=== PATIENT | female | born 1975 | race Caucasian/White ===

== ENCOUNTER 2016-03-23 16:24 | Emergency (ER) | payer OTHER ==
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
--- NOTE | 2016-03-23 16:41 | ED CLINICAL REPORT ---
Clinical Report - Physicians/Mid Levels [facility] [address] [place] [address] 03/23/2016 16:27 Patient: SILVIA ESPARZA Time Seen: 17:47 Mar 23 2016. Arrived- By ambulance. Historian- patient and EMS personnel. HISTORY OF PRESENT ILLNESS Chief Complaint: DENTAL PAIN. This started just prior to arrival and is still present. Pain described as mild. (Patient reports using meth just before arrival. Reports some dental pain. He was also biting her tongue about 3 weeks previously. No fevers, no diff swallowing.). REVIEW OF SYSTEMS No cough or difficulty breathing. All systems otherwise negative, except as recorded above. SOCIAL HISTORY History of drug use: methamphetamines. No alcohol use. ADDITIONAL NOTES The nursing notes have been reviewed. PHYSICAL EXAM Vital Signs: 03/23/2016 16:34 HR: 122. RR: 18. O2 saturation: 98%. Appearance: Alert. (very jumpy/ short/ abrupt/ tangential/ disheveled). ENT: Dental decay. Ears normal. Nose normal. No pharyngeal erythema, mouth ulcerations, dental tenderness or trismus. (decay of right lower teth). Neck: Trachea midline. No adenopathy. No thyromegaly. CVS: Normal heart rate and rhythm. Heart sounds normal. Respiratory: No respiratory distress. Breath sounds normal. Skin: Normal skin color. No rash. PROGRESS AND PROCEDURES Course of Care: uvula midline. Pt having a very hard time sitting still during exam. ambulates. Lungs clear. Uvula with no shift. She is very stable. Patient is stable. Patient/family counseled. Disposition: Discharged. CLINICAL IMPRESSION Dental pain. Substance abuse problems: abuse of methamphetamine. (under influence NOW). INSTRUCTIONS Drink plenty of fluids. (swish and spit warm salt water). Prescription Medications: Amoxicillin 500 mg tablets: take 1 orally every 8 hours for 10 days. No refills. Follow-up: Follow up with your doctor in three days. (Electronically signed by Yessy Montanez P.A.-C 03/23/2016 17:51)
--- NOTE | 2016-03-23 16:41 | ED NURSING NOTES ---
Clinical Report - Nurses [facility] [address] [place] [address] 03/23/2016 16:27 Patient: SILVIA ESPARZA TRIAGE Triage time 16:34 Mar 23 2016. Acuity: LEVEL 5. Alert. --16:41 Josie Carias R.N. 16:34 03/23/16. HR: 122. RR: 18. O2 saturation: 98%. Pain level now 0/10. --16:41 Josie Carias R.N. Chief Complaint: RIGHT UPPER TOOTHACHE. --17:02 Josie Carias R.N. Weight: 52.1 kg stated. Height/Length: 67 inches Per Patient. BMI: 18. --16:34 Josie Carias R.N. Medications Abilify Oral 10mg, daily. HydrOXYzine HCl Oral 100 mg, daily. Penicillin VK. Prazosin HCl Oral 2 mg, at bedtime. --17:02 Josie Carias R.N. Ranitidine HCl Oral 150 mg, daily. Triamcinolone paste 0.1%. --17:02 Josie Carias R.N. Allergies Compazine. Gabapentin. morphine. Phenergan. Vancomycin. Vicodin. --17:02 Josie Carias R.N. History Arrived by private vehicle. Historian: patient. Primary physician (none). ( Pt took an ambulance to the ER for dental pain, states she bit her tongue 3 weeks ago and her ears hurt. Pt brought to the front the desk for check in, pt brought to triage, pt rambling, cannot focus, needs questions repeated, restless in chair, staff cannot understand pt, except to understand that she has dental pain.). Onset. (3 weeks). She has no dental appointment scheduled. Treatment ENVIRONMENTAL COMPLIANCE INSPECTOR: None. PAST MEDICAL HX: Denies current . SOCIAL HX: Former smoker (states she doesn't smoke). History of drug use: methamphetamines. No alcohol use. NUTRITIONAL RISK ASSESSMENT: The nutritional risk assessment revealed no deficiencies. FUNCTIONAL ASSESSMENT: Functional assessment: no impairments noted. LEARNING NEEDS ASSESSMENT: The learning needs assessment revealed no barriers. SKIN INTEGRITY ASSESSMENT: Skin integrity risk assessment completed. No skin integrity risk identified. --16:41 Josie Carias R.N. Interventions ID band on patient. To room. --16:41 Josie Carias R.N. PHYSICAL ASSESSMENT Ambulatory to room. GENERAL / NEURO / PSYCH: Appears anxious. She appears anxious. SKIN: Skin is warm and dry. --16:45 Josie Carias R.N. NURSING PROGRESS NOTES ( Pt seen in triage on arrival by Lennie FELIX. Pt admitted she used meth ENVIRONMENTAL COMPLIANCE INSPECTOR, was informed she needs to fill this RX for teeth and infection. Pt walked out to [facility] after discharge and assisted with the phone to call [employer].). --17:00 Josie Carias R.N. DISPOSITION / DISCHARGE Condition at departure: stable. Ability to learn limited by poor comprehension and poor cooperation; teaching performed with the patient. Reviewed medication(s). Written instructions provided in Icelandic. The patient was discharged by the physician assistant import manager. She was discharged home. She left the Emergency Department ambulatory and via ([employer].). --17:01 Josie Carias R.N. Departure time: 17:Mar 23 2016. --17:01 Josie Carias R.N. Locked/Released at 03/23/2016 17:04 by Josie Carias R.N.
--- NOTE | 2016-03-23 16:41 | ED NURSING NOTES ---
Clinical Report - Nurses [facility] [address] [place] [address] 03/23/2016 16:27 Patient: SILVIA ESPARZA TRIAGE Triage time 16:34 Mar 23 2016. Acuity: LEVEL 5. Alert. --16:41 Josie Carias R.N. 16:34 03/23/16. HR: 122. RR: 18. O2 saturation: 98%. Pain level now 0/10. --16:41 Josie Carias R.N. Chief Complaint: RIGHT UPPER TOOTHACHE. --17:02 Josie Carias R.N. Weight: 52.1 kg stated. Height/Length: 67 inches Per Patient. BMI: 18. --16:34 Josie Carias R.N. Medications Abilify Oral 10mg, daily. HydrOXYzine HCl Oral 100 mg, daily. Penicillin VK. Prazosin HCl Oral 2 mg, at bedtime. --17:02 Josie Carias R.N. Ranitidine HCl Oral 150 mg, daily. Triamcinolone paste 0.1%. --17:02 Josie Carias R.N. Allergies Compazine. Gabapentin. morphine. Phenergan. Vancomycin. Vicodin. --17:02 Josie Carias R.N. History Arrived by private vehicle. Historian: patient. Primary physician (none). ( Pt took an ambulance to the ER for dental pain, states she bit her tongue 3 weeks ago and her ears hurt. Pt brought to the front the desk for check in, pt brought to triage, pt rambling, cannot focus, needs questions repeated, restless in chair, staff cannot understand pt, except to understand that she has dental pain.). Onset. (3 weeks). She has no dental appointment scheduled. Treatment RACE RELATIONS ADVISER: None. PAST MEDICAL HX: Denies current . SOCIAL HX: Former smoker (states she doesn't smoke). History of drug use: methamphetamines. No alcohol use. NUTRITIONAL RISK ASSESSMENT: The nutritional risk assessment revealed no deficiencies. FUNCTIONAL ASSESSMENT: Functional assessment: no impairments noted. LEARNING NEEDS ASSESSMENT: The learning needs assessment revealed no barriers. SKIN INTEGRITY ASSESSMENT: Skin integrity risk assessment completed. No skin integrity risk identified. --16:41 Josie Carias R.N. Interventions ID band on patient. To room. --16:41 Josie Carias R.N. PHYSICAL ASSESSMENT Ambulatory to room. GENERAL / NEURO / PSYCH: Appears anxious. She appears anxious. SKIN: Skin is warm and dry. --16:45 Josie Carias R.N. NURSING PROGRESS NOTES ( Pt seen in triage on arrival by Lennie FELIX. Pt admitted she used meth RACE RELATIONS ADVISER, was informed she needs to fill this RX for teeth and infection. Pt walked out to [facility] after discharge and assisted with the phone to call [employer].). --17:00 Josie Carias R.N. DISPOSITION / DISCHARGE Condition at departure: stable. Ability to learn limited by poor comprehension and poor cooperation; teaching performed with the patient. Reviewed medication(s). Written instructions provided in Wolof. The patient was discharged by the physician events assistant. She was discharged home. She left the Emergency Department ambulatory and via ([email or web address] --17:01 Josie Carias R.N. Departure time: 17:Mar 23 2016. --17:01 Josie Carias R.N. Locked/Released at 03/23/2016 17:04 by Josie Carias R.N.
--- NOTE | 2016-03-23 17:52 | ED MED RECONCILIATION SUMMARY ---
Patient: SILVIA ESPARZA Medication Reconciliation Report [facility] VisitID: [id number] [place] [address] 41y, F Registration Date/Time: 03/23/2016 Weight: 52.1 kg Height/Length: 67 in. BMI: 18.0 ALLERGIES: Compazine, Gabapentin, morphine, Phenergan, Vancomycin, Vicodin The patient's Home Medications are listed below: THE FOLLOWING MEDICATIONS NEED TO BE RECONCILED: Abilify Oral 10mg, daily HydrOXYzine HCl Oral 100 mg, daily Penicillin VK Prazosin HCl Oral 2 mg, at bedtime Ranitidine HCl Oral 150 mg, daily Triamcinolone paste 0.1% The source(s) of the original Home Medication information: Not obtained. The following Medications were given to the patient in the Emergency Department: None. The following Medications were prescribed to the patient: Amoxicillin 500 mg tablets: take 1 orally every 8 hours for 10 days. No refills. -- Yessy Montanez P.A.-C
--- NOTE | 2016-03-23 17:52 | ED MED RECONCILIATION SUMMARY ---
Patient: SILVIA ESPARZA Medication Reconciliation Report [facility] VisitID: [id number] [place] [address] 41y, F Registration Date/Time: 03/23/2016 Weight: 52.1 kg Height/Length: 67 in. BMI: 18.0 ALLERGIES: Compazine, Gabapentin, morphine, Phenergan, Vancomycin, Vicodin The patient's Home Medications are listed below: THE FOLLOWING MEDICATIONS NEED TO BE RECONCILED: Abilify Oral 10mg, daily HydrOXYzine HCl Oral 100 mg, daily Penicillin VK Prazosin HCl Oral 2 mg, at bedtime Ranitidine HCl Oral 150 mg, daily Triamcinolone paste 0.1% The source(s) of the original Home Medication information: Not obtained. The following Medications were given to the patient in the Emergency Department: None. The following Medications were prescribed to the patient: Amoxicillin 500 mg tablets: take 1 orally every 8 hours for 10 days. No refills. -- Yessy Montanez P.A.-C
--- NOTE | 2016-03-23 17:52 | ED DISCHARGE INSTRUCTIONS ---
Patient: SILVIA ESPARZA General Instructions [facility] VisitID: [id number] [place] [address] 41y, F Registration Date/Time: 03/23/2016 Dental pain. Substance abuse problems: abuse of methamphetamine. (under influence NOW). INSTRUCTIONS Drink plenty of fluids. (swish and spit warm salt water). Prescription Medications: Amoxicillin 500 mg tablets: take 1 orally every 8 hours for 10 days. No refills. Follow-up: Follow up with your doctor in three days. ADDITIONAL INFORMATION Amoxicillin Trihydrate Oral tablet What is this medicine? AMOXICILLIN (a mox i LEONIE in) is a penicillin antibiotic. It is used to treat certain kinds of bacterial infections. It will not work for colds, flu, or other viral infections. How should I use this medicine? Take this medicine by mouth with a glass of water. Follow the directions on your prescription label. You may take this medicine with food or on an empty stomach. Take your medicine at regular intervals. Do not take your medicine more often than directed. Take all of your medicine as directed even if you think your are better. Do not skip doses or stop your medicine early. Talk to your svp operations regarding the use of this medicine in children. While this drug may be prescribed for selected conditions, precautions do apply. What side effects may I notice from receiving this medicine? Side effects that you should report to your doctor or health lawn care professional as soon as possible: allergic reactions like skin rash, itching or hives, swelling of the face, lips, or tongue breathing problems dark urine redness, blistering, peeling or loosening of the skin, including inside the mouth seizures severe or watery diarrhea trouble passing urine or change in the amount of urine unusual bleeding or bruising unusually weak or tired yellowing of the eyes or skin Side effects that usually do not require medical attention (report to your doctor or health lawn care professional if they continue or are bothersome): dizziness headache stomach upset trouble sleeping What may interact with this medicine? amiloride control pills chloramphenicol macrolides probenecid sulfonamides tetracyclines What if I miss a dose? If you miss a dose, take it as soon as you can. If it is almost time for your next dose, take only that dose. Do not take double or extra doses. Where should I keep my medicine? Keep out of the reach of children. Store between 68 and 77 degrees F (20 and 25 degrees C). Keep bottle closed tightly. Throw away any unused medicine after the expiration date. What should I tell my health care provider before I take this medicine? They need to know if you have any of these conditions: asthma kidney disease an unusual or allergic reaction to amoxicillin, other penicillins, cephalosporin antibiotics, other medicines, foods, dyes, or preservatives or trying to get breast-feeding What should I watch for while using this medicine? Tell your doctor or health lawn care professional if your symptoms do not improve in 2 or 3 days. Take all of the doses of your medicine as directed. Do not skip doses or stop your medicine early. If you are diabetic, you may get a false positive result for sugar in your urine with certain brands of urine tests. Check with your doctor. Do not treat diarrhea with [id number] products. Contact your doctor if you have diarrhea that lasts more than 2 days or if the diarrhea is severe and watery. You have been given the following additional information: Amoxicillin Trihydrate Oral tablet (Electronically signed by Yessy Montanez P.A.-C 03/23/2016 17:51)
--- NOTE | 2016-03-23 17:52 | ED DISCHARGE INSTRUCTIONS ---
Patient: SILVIA ESPARZA General Instructions [facility] VisitID: [id number] [address] [address] 41y, F Registration Date/Time: 03/23/2016 Dental pain. Substance abuse problems: abuse of methamphetamine. (under influence NOW). INSTRUCTIONS Drink plenty of fluids. (swish and spit warm salt water). Prescription Medications: Amoxicillin 500 mg tablets: take 1 orally every 8 hours for 10 days. No refills. Follow-up: Follow up with your doctor in three days. ADDITIONAL INFORMATION Amoxicillin Trihydrate Oral tablet What is this medicine? AMOXICILLIN (a mox i LEONIE in) is a penicillin antibiotic. It is used to treat certain kinds of bacterial infections. It will not work for colds, flu, or other viral infections. How should I use this medicine? Take this medicine by mouth with a glass of water. Follow the directions on your prescription label. You may take this medicine with food or on an empty stomach. Take your medicine at regular intervals. Do not take your medicine more often than directed. Take all of your medicine as directed even if you think your are better. Do not skip doses or stop your medicine early. Talk to your pulp grinder and blender regarding the use of this medicine in children. While this drug may be prescribed for selected conditions, precautions do apply. What side effects may I notice from receiving this medicine? Side effects that you should report to your doctor or health career manager as soon as possible: allergic reactions like skin rash, itching or hives, swelling of the face, lips, or tongue breathing problems dark urine redness, blistering, peeling or loosening of the skin, including inside the mouth seizures severe or watery diarrhea trouble passing urine or change in the amount of urine unusual bleeding or bruising unusually weak or tired yellowing of the eyes or skin Side effects that usually do not require medical attention (report to your doctor or health career manager if they continue or are bothersome): dizziness headache stomach upset trouble sleeping What may interact with this medicine? amiloride control pills chloramphenicol macrolides probenecid sulfonamides tetracyclines What if I miss a dose? If you miss a dose, take it as soon as you can. If it is almost time for your next dose, take only that dose. Do not take double or extra doses. Where should I keep my medicine? Keep out of the reach of children. Store between 68 and 77 degrees F (20 and 25 degrees C). Keep bottle closed tightly. Throw away any unused medicine after the expiration date. What should I tell my health care provider before I take this medicine? They need to know if you have any of these conditions: asthma kidney disease an unusual or allergic reaction to amoxicillin, other penicillins, cephalosporin antibiotics, other medicines, foods, dyes, or preservatives or trying to get breast-feeding What should I watch for while using this medicine? Tell your doctor or health career manager if your symptoms do not improve in 2 or 3 days. Take all of the doses of your medicine as directed. Do not skip doses or stop your medicine early. If you are diabetic, you may get a false positive result for sugar in your urine with certain brands of urine tests. Check with your doctor. Do not treat diarrhea with [id number] products. Contact your doctor if you have diarrhea that lasts more than 2 days or if the diarrhea is severe and watery. You have been given the following additional information: Amoxicillin Trihydrate Oral tablet (Electronically signed by Yessy Montanez P.A.-C 03/23/2016 17:51)
--- NOTE | 2016-03-23 17:52 | ED MAR SUMMARY ---
..... Medication Administration Record [facility] [address] [place] [address] Patient: SILVIA ESPARZA Visit ID: [id number] 41y, F Weight: 52.1 kg Height/Length: 67 in BMI: 18 ALLERGIES: Compazine, Gabapentin, morphine, Phenergan, Vancomycin, Vicodin
--- NOTE | 2016-03-23 17:52 | ED MAR SUMMARY ---
..... Medication Administration Record [facility] [address] [place] [address] Patient: SILVIA ESPARZA Visit ID: [id number] 41y, F Weight: 52.1 kg Height/Length: 67 in BMI: 18 ALLERGIES: Compazine, Gabapentin, morphine, Phenergan, Vancomycin, Vicodin
== END 2016-03-23 17:00 | disposition home or self-care (01) ==
LOC: ED SRH 16:24
DX: K08.89 Other specified disorders of teeth and supporting structures (principal); F15.10 Other stimulant abuse, uncomplicated; Z88.5 Allergy status to narcotic agent; Z88.1 Allergy status to other antibiotic agents

== ENCOUNTER 2016-03-31 21:54 | Emergency (ER) | payer OTHER ==
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
--- NOTE | 2016-03-31 22:43 | ED ORDER SUMMARY ---
..... Patient: SILVIA ESPARZA OrderSheet [facility] VisitID: [id number] [place] [address] 41y, F Registration Date/Time: 03/31/2016 ORDER SHEET Weight: 61.2 kg (stated) Allergies: Compazine, Gabapentin, morphine, Phenergan, Vancomycin, Vicodin GENERAL ORDERS: MEDICATION ORDERS: Amoxicillin PO 500 mg (NOW) (22:03 03/31/2016 EKoroleva P.A.-C) (Ack 22:07 SReitz R.N.) (22:29 SReitz R.N.) Motrin PO 800 mg (NOW) (22:03 03/31/2016 EKoroleva P.A.-C) (Ack 22:07 SReitz R.N.) (22:29 SReitz R.N.) Lidocaine Viscous PO (Solution 2 %) 10 mL (NOW) (22:03 03/31/2016 EKoroleva P.A.-C) (Ack 22:07 SReitz R.N.) (22:29 SReitz R.N.) IV FLUIDS: ORDER SHEET NOTES: [Electronically signed by Yessy Montanez P.A.-C (22:58 03/31/2016)] [Electronically signed by Adeola Billings R.N. (23:11 03/31/2016)] [Electronically locked/signed by Adeola Billings R.N. (23:11 03/31/2016)]
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
--- NOTE | 2016-03-31 22:43 | ED ORDER SUMMARY ---
..... Patient: SILVIA ESPARZA OrderSheet [facility] VisitID: [id number] [place] [address] 41y, F Registration Date/Time: 03/31/2016 ORDER SHEET Weight: 61.2 kg (stated) Allergies: Compazine, Gabapentin, morphine, Phenergan, Vancomycin, Vicodin GENERAL ORDERS: MEDICATION ORDERS: Amoxicillin PO 500 mg (NOW) (22:03 03/31/2016 EKoroleva P.A.-C) (Ack 22:07 SReitz R.N.) (22:29 SReitz R.N.) Motrin PO 800 mg (NOW) (22:03 03/31/2016 EKoroleva P.A.-C) (Ack 22:07 SReitz R.N.) (22:29 SReitz R.N.) Lidocaine Viscous PO (Solution 2 %) 10 mL (NOW) (22:03 03/31/2016 EKoroleva P.A.-C) (Ack 22:07 SReitz R.N.) (22:29 SReitz R.N.) IV FLUIDS: ORDER SHEET NOTES: [Electronically signed by Yessy Montanez P.A.-C (22:58 03/31/2016)] [Electronically signed by Adeola Billings R.N. (23:11 03/31/2016)] [Electronically locked/signed by Adeola Billings R.N. (23:11 03/31/2016)]
--- NOTE | 2016-03-31 23:14 | ED MED RECONCILIATION SUMMARY ---
Patient: SILVIA ESPARZA Medication Reconciliation Report [facility] VisitID: [id number] [address] [place] [address] 41y, F Registration Date/Time: 03/31/2016 Weight: 61.2 kg Height/Length: 61 in. BMI: 25.5 ALLERGIES: Compazine, Gabapentin, morphine, Phenergan, Vancomycin, Vicodin The patient's Home Medications are listed below: THE FOLLOWING MEDICATIONS NEED TO BE RECONCILED: Abilify Oral 10mg, daily HydrOXYzine HCl Oral 100 mg, daily Penicillin VK Prazosin HCl Oral 2 mg, at bedtime Ranitidine HCl Oral 150 mg, daily Triamcinolone paste 0.1% The source(s) of the original Home Medication information: Not obtained. The following Medications were given to the patient in the Emergency Department: Amoxicillin [PO] PO 500 mg, administered: 03/31/2016 10:20:00 PM Motrin [PO] PO 800 mg, administered: 03/31/2016 10:20:00 PM Lidocaine Viscous [PO] PO 10 mL, administered: 03/31/2016 10:20:00 PM The following Medications were prescribed to the patient: Take acetaminophen (Tylenol, Datril, etc.) and ibuprofen (Advil, Nuprin, etc.) according to label instructions. Available over the counter. -- Yessy Montanez P.AMyra-Curt Amoxicillin 500 mg tablets: take 1 orally every 8 hours for 10 days. No refills. -- Yessy Montanez P.AMyra-C
--- NOTE | 2016-03-31 23:14 | ED MAR SUMMARY ---
..... Medication Administration Record [facility] [address] [place] [address] Patient: SILVIA ESPARZA Visit ID: [id number] 41y, F Weight: 61.2 kg Height/Length: 61 in BMI: 25.5 ALLERGIES: Compazine, Gabapentin, morphine, Phenergan, Vancomycin, Vicodin Given 22:03/31/2016 Adoela Billings R.N. Medication Administered: AMOXICILLIN [PO], Dose: 500 mg PO. Medication Ordered: Amoxicillin PO 500 mg (NOW). Given 22:03/31/2016 Adeola Billings R.N. Medication Administered: MOTRIN [PO], Dose: 800 mg PO. Medication Ordered: Motrin PO 800 mg (NOW). Given 22:03/31/2016 Adeola Billings R.NMyra Medication Administered: LIDOCAINE VISCOUS [PO], Dose: 10 mL PO. Medication Ordered: Lidocaine Viscous PO (Solution 2 %) 10 mL (NOW).
--- NOTE | 2016-03-31 23:14 | ED DISCHARGE INSTRUCTIONS ---
Patient: SILVIA ESPARZA General Instructions [facility] VisitID: [id number] [place] [address] 41y, F Registration Date/Time: 03/31/2016 Acute right otitis media. INSTRUCTIONS Drink plenty of fluids. Prescription Medications: Amoxicillin 500 mg tablets: take 1 orally every 8 hours for 10 days. No refills. OTC Medications: Take acetaminophen (Tylenol, Datril, etc.) and ibuprofen (Advil, Nuprin, etc.) according to label instructions. Available over the counter. Follow-up: Follow up with your doctor in three days. Understanding of the discharge instructions verbalized by patient. ADDITIONAL INFORMATION Middle Ear Infection (Adult) You have an infection of the middle ear (the space behind the eardrum). It can occur as a result of the common cold. This is because congestion can block the internal passage (eustachian tube) that drains fluid from the middle ear. When the middle ear fills with fluid, bacteria can grow there and cause an infection. Oral antibiotics are used to treat this illness, not ear drops. Symptoms usually start to improve within 1-2 days of treatment. Home Care: Finish all of the antibiotic medicine prescribed, even though you may feel better after the first few days. You may use acetaminophen (Tylenol) or ibuprofen (Motrin, Advil) to control pain, unless something else was prescribed. [NOTE: If you have chronic liver or kidney disease or have ever had a stomach ulcer or GI bleeding, talk with your doctor before using these medicines.] (Do not give aspirin to anyone under 18 years of age who is ill with a fever. It may cause severe liver damage.) Follow Up with your doctor or this facility in two weeks if all symptoms have not cleared, or if hearing does not return to normal within one month. Get Prompt Medical Attention if any of the following occur: Ear pain gets worse or does not improve after three days of treatment Unusual drowsiness or confusion Neck pain, stiff neck or headache Fluid or blood draining from the ear canal Fever of 100.4F (38C) or higher after 3 days of antibiotics, or as directed by your healthcare provider Convulsion (seizure) Amoxicillin Trihydrate Oral tablet What is this medicine? AMOXICILLIN (a mox i LEONIE in) is a penicillin antibiotic. It is used to treat certain kinds of bacterial infections. It will not work for colds, flu, or other viral infections. How should I use this medicine? Take this medicine by mouth with a glass of water. Follow the directions on your prescription label. You may take this medicine with food or on an empty stomach. Take your medicine at regular intervals. Do not take your medicine more often than directed. Take all of your medicine as directed even if you think your are better. Do not skip doses or stop your medicine early. Talk to your bellows tester regarding the use of this medicine in children. While this drug may be prescribed for selected conditions, precautions do apply. What side effects may I notice from receiving this medicine? Side effects that you should report to your doctor or health hospice home care coordinator as soon as possible: allergic reactions like skin rash, itching or hives, swelling of the face, lips, or tongue breathing problems dark urine redness, blistering, peeling or loosening of the skin, including inside the mouth seizures severe or watery diarrhea trouble passing urine or change in the amount of urine unusual bleeding or bruising unusually weak or tired yellowing of the eyes or skin Side effects that usually do not require medical attention (report to your doctor or health hospice home care coordinator if they continue or are bothersome): dizziness headache stomach upset trouble sleeping What may interact with this medicine? amiloride control pills chloramphenicol macrolides probenecid sulfonamides tetracyclines What if I miss a dose? If you miss a dose, take it as soon as you can. If it is almost time for your next dose, take only that dose. Do not take double or extra doses. Where should I keep my medicine? Keep out of the reach of children. Store between 68 and 77 degrees F (20 and 25 degrees C). Keep bottle closed tightly. Throw away any unused medicine after the expiration date. What should I tell my health care provider before I take this medicine? They need to know if you have any of these conditions: asthma kidney disease an unusual or allergic reaction to amoxicillin, other penicillins, cephalosporin antibiotics, other medicines, foods, dyes, or preservatives or trying to get breast-feeding What should I watch for while using this medicine? Tell your doctor or health hospice home care coordinator if your symptoms do not improve in 2 or 3 days. Take all of the doses of your medicine as directed. Do not skip doses or stop your medicine early. If you are diabetic, you may get a false positive result for sugar in your urine with certain brands of urine tests. Check with your doctor. Do not treat diarrhea with [id number] products. Contact your doctor if you have diarrhea that lasts more than 2 days or if the diarrhea is severe and watery. You have been given the following additional information: Otitis Media, Abx Tx (Adult) Amoxicillin Trihydrate Oral tablet (Electronically signed by Yessy Montanez P.A.-C 03/31/2016 22:58)
--- NOTE | 2016-03-31 23:14 | ED DISCHARGE INSTRUCTIONS ---
Patient: SILVIA ESPARZA General Instructions [facility] VisitID: [id number] [place] [address] 41y, F Registration Date/Time: 03/31/2016 Acute right otitis media. INSTRUCTIONS Drink plenty of fluids. Prescription Medications: Amoxicillin 500 mg tablets: take 1 orally every 8 hours for 10 days. No refills. OTC Medications: Take acetaminophen (Tylenol, Datril, etc.) and ibuprofen (Advil, Nuprin, etc.) according to label instructions. Available over the counter. Follow-up: Follow up with your doctor in three days. Understanding of the discharge instructions verbalized by patient. ADDITIONAL INFORMATION Middle Ear Infection (Adult) You have an infection of the middle ear (the space behind the eardrum). It can occur as a result of the common cold. This is because congestion can block the internal passage (eustachian tube) that drains fluid from the middle ear. When the middle ear fills with fluid, bacteria can grow there and cause an infection. Oral antibiotics are used to treat this illness, not ear drops. Symptoms usually start to improve within 1-2 days of treatment. Home Care: Finish all of the antibiotic medicine prescribed, even though you may feel better after the first few days. You may use acetaminophen (Tylenol) or ibuprofen (Motrin, Advil) to control pain, unless something else was prescribed. [NOTE: If you have chronic liver or kidney disease or have ever had a stomach ulcer or GI bleeding, talk with your doctor before using these medicines.] (Do not give aspirin to anyone under 18 years of age who is ill with a fever. It may cause severe liver damage.) Follow Up with your doctor or this facility in two weeks if all symptoms have not cleared, or if hearing does not return to normal within one month. Get Prompt Medical Attention if any of the following occur: Ear pain gets worse or does not improve after three days of treatment Unusual drowsiness or confusion Neck pain, stiff neck or headache Fluid or blood draining from the ear canal Fever of 100.4F (38C) or higher after 3 days of antibiotics, or as directed by your healthcare provider Convulsion (seizure) Amoxicillin Trihydrate Oral tablet What is this medicine? AMOXICILLIN (a mox i LEONIE in) is a penicillin antibiotic. It is used to treat certain kinds of bacterial infections. It will not work for colds, flu, or other viral infections. How should I use this medicine? Take this medicine by mouth with a glass of water. Follow the directions on your prescription label. You may take this medicine with food or on an empty stomach. Take your medicine at regular intervals. Do not take your medicine more often than directed. Take all of your medicine as directed even if you think your are better. Do not skip doses or stop your medicine early. Talk to your assistant director of public works regarding the use of this medicine in children. While this drug may be prescribed for selected conditions, precautions do apply. What side effects may I notice from receiving this medicine? Side effects that you should report to your doctor or health foster care case manager as soon as possible: allergic reactions like skin rash, itching or hives, swelling of the face, lips, or tongue breathing problems dark urine redness, blistering, peeling or loosening of the skin, including inside the mouth seizures severe or watery diarrhea trouble passing urine or change in the amount of urine unusual bleeding or bruising unusually weak or tired yellowing of the eyes or skin Side effects that usually do not require medical attention (report to your doctor or health foster care case manager if they continue or are bothersome): dizziness headache stomach upset trouble sleeping What may interact with this medicine? amiloride control pills chloramphenicol macrolides probenecid sulfonamides tetracyclines What if I miss a dose? If you miss a dose, take it as soon as you can. If it is almost time for your next dose, take only that dose. Do not take double or extra doses. Where should I keep my medicine? Keep out of the reach of children. Store between 68 and 77 degrees F (20 and 25 degrees C). Keep bottle closed tightly. Throw away any unused medicine after the expiration date. What should I tell my health care provider before I take this medicine? They need to know if you have any of these conditions: asthma kidney disease an unusual or allergic reaction to amoxicillin, other penicillins, cephalosporin antibiotics, other medicines, foods, dyes, or preservatives or trying to get breast-feeding What should I watch for while using this medicine? Tell your doctor or health foster care case manager if your symptoms do not improve in 2 or 3 days. Take all of the doses of your medicine as directed. Do not skip doses or stop your medicine early. If you are diabetic, you may get a false positive result for sugar in your urine with certain brands of urine tests. Check with your doctor. Do not treat diarrhea with [id number] products. Contact your doctor if you have diarrhea that lasts more than 2 days or if the diarrhea is severe and watery. You have been given the following additional information: Otitis Media, Abx Tx (Adult) Amoxicillin Trihydrate Oral tablet (Electronically signed by Yessy Montanez P.A.-C 03/31/2016 22:58)
--- NOTE | 2016-03-31 23:14 | ED MAR SUMMARY ---
..... Medication Administration Record [facility] [address] [place] [address] Patient: SILVIA ESPARZA Visit ID: [id number] 41y, F Weight: 61.2 kg Height/Length: 61 in BMI: 25.5 ALLERGIES: Compazine, Gabapentin, morphine, Phenergan, Vancomycin, Vicodin Given 22:03/31/2016 Adeola Billings R.N. Medication Administered: AMOXICILLIN [PO], Dose: 500 mg PO. Medication Ordered: Amoxicillin PO 500 mg (NOW). Given 22:03/31/2016 Adeola Billings R.N. Medication Administered: MOTRIN [PO], Dose: 800 mg PO. Medication Ordered: Motrin PO 800 mg (NOW). Given 22:03/31/2016 Adeola Billings R.NMyra Medication Administered: LIDOCAINE VISCOUS [PO], Dose: 10 mL PO. Medication Ordered: Lidocaine Viscous PO (Solution 2 %) 10 mL (NOW).
--- NOTE | 2016-03-31 23:14 | ED MED RECONCILIATION SUMMARY ---
Patient: SILVIA ESPARZA Medication Reconciliation Report [facility] VisitID: [id number] [address] [place] [address] 41y, F Registration Date/Time: 03/31/2016 Weight: 61.2 kg Height/Length: 61 in. BMI: 25.5 ALLERGIES: Compazine, Gabapentin, morphine, Phenergan, Vancomycin, Vicodin The patient's Home Medications are listed below: THE FOLLOWING MEDICATIONS NEED TO BE RECONCILED: Abilify Oral 10mg, daily HydrOXYzine HCl Oral 100 mg, daily Penicillin VK Prazosin HCl Oral 2 mg, at bedtime Ranitidine HCl Oral 150 mg, daily Triamcinolone paste 0.1% The source(s) of the original Home Medication information: Not obtained. The following Medications were given to the patient in the Emergency Department: Amoxicillin [PO] PO 500 mg, administered: 03/31/2016 10:20:00 PM Motrin [PO] PO 800 mg, administered: 03/31/2016 10:20:00 PM Lidocaine Viscous [PO] PO 10 mL, administered: 03/31/2016 10:20:00 PM The following Medications were prescribed to the patient: Take acetaminophen (Tylenol, Datril, etc.) and ibuprofen (Advil, Nuprin, etc.) according to label instructions. Available over the counter. -- Yessy Montanez P.AMyra-Curt Amoxicillin 500 mg tablets: take 1 orally every 8 hours for 10 days. No refills. -- Yessy Montanez P.AMyra-C
== END 2016-03-31 22:45 | disposition home or self-care (01) ==
LOC: ED SRH 21:54
DX: H66.91 Otitis media, unspecified, right ear (principal); Z79.899 Other long term (current) drug therapy; Z88.8 Allergy status to other drugs, medicaments and biological substances; Z88.5 Allergy status to narcotic agent

== ENCOUNTER 2016-04-20 18:41 | Emergency (ER) | payer OTHER ==
--- NOTE | 2016-04-20 19:18 | ED ORDER SUMMARY ---
..... Patient: SILVIA ESPARZA OrderSheet [facility] VisitID: [id number] [address] [place] [address] 41y, F Registration Date/Time: 04/20/2016 ORDER SHEET Weight: 58.9 kg (stated) Allergies: Compazine, Gabapentin, morphine, Phenergan, Vancomycin, Vicodin GENERAL ORDERS: CBC w Diff Urgent (18:57 04/20/2016 HBivens A.R.N.P.) (Ack 19:00 AMcQuoid ER Tech1) (19:11 HBivens A.R.N.P.) (Cancelled: Other19:11 HBivens A.R.N.P.) CMP Urgent (18:57 04/20/2016 HBivens A.R.N.P.) (Ack 19:00 AMcQuoid ER Tech1) (19:11 HBivens A.R.N.P.) (Cancelled: Other19:12 HBivens A.R.N.P.) UA-Culture if indicated Urgent (18:57 04/20/2016 HBivens A.R.N.P.) (Ack 19:00 AMcQuoid ER Tech1) (19:01 JBoardley R.N.) Urine Urgent (18:57 04/20/2016 HBivens A.R.N.P.) (Ack 19:00 AMcQuoid ER Tech1) (19:01 JBoardley R.N.) Urine Drug Screen Urgent (18:57 04/20/2016 HBivens A.R.N.P.) (Ack 19:00 AMcQuoid ER Tech1) (19:01 JBoardley R.N.) Acetaminophen Level Urgent (18:57 04/20/2016 HBivens A.R.N.P.) (Ack 19:00 AMcQuoid ER Tech1) (19:12 HBivens A.R.N.P.) (Cancelled: Other19:12 HBivens A.R.N.P.) Salicylate Level Urgent (18:57 04/20/2016 HBivens A.R.N.P.) (Ack 19:00 AMcQuoid ER Tech1) (19:12 HBivens A.R.N.P.) (Cancelled: Other19:12 HBivens A.R.N.P.) MEDICATION ORDERS: IV FLUIDS: ORDER SHEET NOTES: [Electronically signed by Shelby Land R.N. (20:00 04/20/2016)] [Electronically signed by Marcelle UrbanR.N.PMyra (21:12 04/20/2016)] [Electronically locked/signed by Shelby Land R.N. (20:00 04/20/2016)]
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
--- NOTE | 2016-04-20 19:18 | ED ORDER SUMMARY ---
..... Patient: SILVIA ESPARZA OrderSheet [facility] VisitID: [id number] [address] [place] [address] 41y, F Registration Date/Time: 04/20/2016 ORDER SHEET Weight: 58.9 kg (stated) Allergies: Compazine, Gabapentin, morphine, Phenergan, Vancomycin, Vicodin GENERAL ORDERS: CBC w Diff Urgent (18:57 04/20/2016 HBivens A.R.N.P.) (Ack 19:00 AMcQuoid ER Tech1) (19:11 HBivens A.R.N.P.) (Cancelled: Other19:11 HBivens A.R.N.P.) CMP Urgent (18:57 04/20/2016 HBivens A.R.N.P.) (Ack 19:00 AMcQuoid ER Tech1) (19:11 HBivens A.R.N.P.) (Cancelled: Other19:12 HBivens A.R.N.P.) UA-Culture if indicated Urgent (18:57 04/20/2016 HBivens A.R.N.P.) (Ack 19:00 AMcQuoid ER Tech1) (19:01 JBoardley R.N.) Urine Urgent (18:57 04/20/2016 HBivens A.R.N.P.) (Ack 19:00 AMcQuoid ER Tech1) (19:01 JBoardley R.N.) Urine Drug Screen Urgent (18:57 04/20/2016 HBivens A.R.N.P.) (Ack 19:00 AMcQuoid ER Tech1) (19:01 JBoardley R.N.) Acetaminophen Level Urgent (18:57 04/20/2016 HBivens A.R.N.P.) (Ack 19:00 AMcQuoid ER Tech1) (19:12 HBivens A.R.N.P.) (Cancelled: Other19:12 HBivens A.R.N.P.) Salicylate Level Urgent (18:57 04/20/2016 HBivens A.R.N.P.) (Ack 19:00 AMcQuoid ER Tech1) (19:12 HBivens A.R.N.P.) (Cancelled: Other19:12 HBivens A.R.N.P.) MEDICATION ORDERS: IV FLUIDS: ORDER SHEET NOTES: [Electronically signed by Shelby Land R.N. (20:00 04/20/2016)] [Electronically signed by Marcelle UrbanR.N.PMyra (21:12 04/20/2016)] [Electronically locked/signed by Shelby Land R.N. (20:00 04/20/2016)]
--- NOTE | 2016-04-20 21:13 | ED MAR SUMMARY ---
..... Medication Administration Record [facility] [address] [place] [address] Patient: SILVIA ESPARZA Visit ID: [id number] 41y, F Weight: 58.9 kg Height/Length: 61 in BMI: 24.5 ALLERGIES: Compazine, Gabapentin, morphine, Phenergan, Vancomycin, Vicodin
--- NOTE | 2016-04-20 21:13 | ED DISCHARGE INSTRUCTIONS ---
Patient: SILVIA ESPARZA General Instructions [facility] VisitID: [id number] [place] [address] 41y, F Registration Date/Time: 04/20/2016 Anxiety reaction. Acute paranoid and simple schizophrenia. Chronic substance abuse- methamphetamines with intoxication, delirium and anxiety. INSTRUCTIONS Warnings: GENERAL WARNINGS: Return or contact your physician immediately if your condition worsens or changes unexpectedly, if not improving as expected, or if other problems arise. Specifically return if problem worsens. Follow-up: Follow up with your doctor in about two days as needed. Call for an appointment. Summary of care provided to patient. Understanding of the discharge instructions verbalized by patient. ADDITIONAL INFORMATION Stress Reaction Anxiety is the feeling we all get when we think something bad might happen. It is a normal response to stress and usually causes only a mild reaction. When anxiety becomes more severe, emotions may interfere with daily life. In some cases, you may not even be aware of what it is youre anxious about! During an anxiety reaction, you may feel like you are helpless, nervous, depressed or irritable. Your body may show signs of anxiety in many ways. You may experience dry mouth, shakiness, dizziness, weakness, trouble breathing, chest pressure, headache, nausea, diarrhea, tiredness, inability to sleep or sexual problems. Home Care: 1) Try to locate the sources of stress in your life. They may not be obvious! These may include: -- Daily hassles of life which pile up (traffic jams, missed appointments, car troubles, etc.) -- Major life changes, both good (new baby, job promotion) and bad (loss of job, loss of loved one) -- Overload: feeling that you have too many responsibilities and can't take care of all of them at once -- Feeling helpless, feeling that your problems are beyond what youre able to solve 2) Notice how your body reacts to stress. Learn to listen to your body signals. This will help you take action before the stress becomes severe. 3) When you can, do something about the source of your stress. (Avoid hassles, limit the amount of change that happens in your life at one time and take a break when you feel overloaded). 4) Unfortunately, many stressful situations cannot be avoided. It is necessary to learn HOW TO MANAGE STRESS better. There are many proven methods that will reduce your anxiety. These include simple things like exercise, good nutrition and adequate rest. Also, there are certain techniques that are helpful: relaxation and breathing exercises, visualization, biofeedback and meditation. For more information about this, consult your doctor or go to a local bookstore and review the many books and tapes available on this subject. Follow Up If you feel that your anxiety is not responding to self-help measures, contact your doctor or make an appointment with a counselor. Get Prompt Medical Attention if any of the following occur: -- Your symptoms get worse -- Chest pain or trouble breathing -- Severe headache not relieved by rest and mild pain reliever -- Rapid or irregular heartbeat, fainting Schizophrenia [General Type] Schizophrenia is a chronic, severe and disabling brain disorder. The cause of schizophrenia is not yet known. It is believed to be a result of genetic and biological factors (brain chemistry and structure). Schizophrenia does run in families and occurs in about 1% of the adult population. Symptoms include: Hallucinations (seeing or hearing things that are not there) Delusions (false beliefs) Disorganized thinking and speech Social withdrawal Severe anxiety Feeling unreal Medicines and therapy can help with many of the symptoms and allow for better daily function and quality of life. These medicines take 2-4 weeks to begin working and 6-8 weeks to take full effect. It is common to feel that you are not ill and that you don't need treatment. It is important to accept the support of friends and family in continuing to take your medicine. Home Care: Be sure to take your medicine as directed even if you think you dont need it. Seek support from friends or family by talking about your feelings and thoughts. Follow Up with your doctor or therapist as advised by our staff. For more information, contact The National [place] for Mental Illness 156-403-4182 www.tacos.org Get Prompt Medical Attention if any of the following occur: Feeling like your symptoms are getting worse Feeling out of control or that you are being controlled by others Feeling like you want to harm yourself or another Unable to care for yourself Worsening hallucinations (hearing voices) Worsening depression or anxiety Paranoid Schizophrenia You have been diagnosed with paranoid schizophrenia. Schizophrenia is a chronic, severe and disabling brain disorder. The cause of schizophrenia is not yet known. It is believed to be a result of genetic and biological factors like brain chemistry and structure. Schizophrenia does run in families and occurs in about 1% of the general population. Symptoms include: Hallucinations (seeing things or hearing voices that are not there). Delusions (false beliefs), for example you may think that others are trying to harm you when they are not. You may feel the need to protect yourself at most times. Wanting to be alone and avoiding other people. Severe anxiety, feeling angry and arguing a lot with others. Medicines and therapy can help with many of the symptoms and allow for better daily function and quality of life. These medicines take 2-4 weeks to begin working and 6-8 weeks to take full effect. It is common to feel that you are not ill and that you dont need treatment. It is important to allow friends and family help you to continue to take your medicine. Home Care: Be sure to take your medicine as directed even if you think you don't need it. Talk with your family about your feelings and thoughts. Follow Up with your doctor or therapist as advised by our staff. For more information, contact The National [place] on Mental Illness [phone] www.tacos.org Get Prompt Medical Attention if any of the following occur: Feeling like your symptoms are getting worse Feeling out of control or being controlled by others Feeling like you want to harm yourself or another Unable to care for yourself Drug Abuse Use and abuse of such drugs as marijuana, amphetamines (speed, crank), cocaine, heroin or prescription pain medicines (Vicodin, codeine), sedatives and sleeping pills (Valium, Klonopin), PCP, mescaline and LSD may lead to addiction or dependence. Once this occurs, you are at greater risk for any of the following: Craving for the drug and unable to stop using the drug even though you think you want to stop (psychological dependence) Drug withdrawal symptoms if you stop taking the drug (physical dependence) Loss of your job or your family Arrest, conviction and detention sentence for possession of an illegal substance or for driving under the influence of such a substance Accidental injuries to yourself or others while you are under the influence of the drug (in a car or at home). HIV infection (much greater risk if you use IV drugs) Other sexually transmitted diseases (herpes, chlamydia, gonorrhea and others) Severe and fatal infection of the heart valves (if you use IV drugs) Stroke, heart attack, hepatitis B or C, kidney failure from overdose Home Care: Admit you have a drug problem. Ask for help from your family and close friends. Seek professional help. This could be in the form of individual psychotherapy or counseling or an outpatient, inpatient, or residential drug treatment program. Join a self-help group for drug abuse. Avoid friends who abuse drugs themselves or tempt you to continue abusing drugs. Eat a balanced diet and begin a regular exercise program. Follow Up with your doctor or as advised by our staff. Contact one of the resources below for help. National [place] on Alcoholism and Drug Dependence www.ncadd.org 805-761-ECKM Narcotics Anonymous www.na.org 098-034-5511 National Alcohol and Substance Abuse Information Center (for referral to treatment programs) www.[employer] 554-976-9504 Get Prompt Medical Attention if any of the following occur: Agitation, anxiety, unable to sleep Unintended weight loss (more than 10 to 15 pounds over 3 months) Seizure Chest pain Fever of 100.4F (38C) or higher, or as directed by your healthcare provider Excess drowsiness or inability to be awakened Shortness of breath Slow breathing under 8 breaths per minute Cough with colored sputum Redness, swelling or tenderness at an injection site You have been given the following additional information: Anxiety Reaction Schizophrenia, General Schizophrenia, Paranoid Type Drug Abuse (Electronically signed by Marcelle Urban A.R.N.P. 04/20/2016 21:12)
--- NOTE | 2016-04-20 21:13 | ED MED RECONCILIATION SUMMARY ---
Patient: SILVIA ESPARZA Medication Reconciliation Report [facility] VisitID: [id number] [address] [place] [address] 41y, F Registration Date/Time: 04/20/2016 Weight: 58.9 kg Height/Length: 61 in. BMI: 24.5 ALLERGIES: Compazine, Gabapentin, morphine, Phenergan, Vancomycin, Vicodin The patient's Home Medications are listed below: THE FOLLOWING MEDICATIONS NEED TO BE RECONCILED: Abilify Oral 10mg, daily HydrOXYzine HCl Oral 100 mg, daily Prazosin HCl Oral 2 mg, at bedtime Ranitidine HCl Oral 150 mg, daily Vraylar, pt states she was just started on this med The source(s) of the original Home Medication information: patient The following Medications were given to the patient in the Emergency Department: None. The following Medications were prescribed to the patient: None.
--- NOTE | 2016-04-20 21:13 | ED DISCHARGE INSTRUCTIONS ---
Patient: SILVIA ESPARZA General Instructions [facility] VisitID: [id number] [place] [address] 41y, F Registration Date/Time: 04/20/2016 Anxiety reaction. Acute paranoid and simple schizophrenia. Chronic substance abuse- methamphetamines with intoxication, delirium and anxiety. INSTRUCTIONS Warnings: GENERAL WARNINGS: Return or contact your physician immediately if your condition worsens or changes unexpectedly, if not improving as expected, or if other problems arise. Specifically return if problem worsens. Follow-up: Follow up with your doctor in about two days as needed. Call for an appointment. Summary of care provided to patient. Understanding of the discharge instructions verbalized by patient. ADDITIONAL INFORMATION Stress Reaction Anxiety is the feeling we all get when we think something bad might happen. It is a normal response to stress and usually causes only a mild reaction. When anxiety becomes more severe, emotions may interfere with daily life. In some cases, you may not even be aware of what it is youre anxious about! During an anxiety reaction, you may feel like you are helpless, nervous, depressed or irritable. Your body may show signs of anxiety in many ways. You may experience dry mouth, shakiness, dizziness, weakness, trouble breathing, chest pressure, headache, nausea, diarrhea, tiredness, inability to sleep or sexual problems. Home Care: 1) Try to locate the sources of stress in your life. They may not be obvious! These may include: -- Daily hassles of life which pile up (traffic jams, missed appointments, car troubles, etc.) -- Major life changes, both good (new baby, job promotion) and bad (loss of job, loss of loved one) -- Overload: feeling that you have too many responsibilities and can't take care of all of them at once -- Feeling helpless, feeling that your problems are beyond what youre able to solve 2) Notice how your body reacts to stress. Learn to listen to your body signals. This will help you take action before the stress becomes severe. 3) When you can, do something about the source of your stress. (Avoid hassles, limit the amount of change that happens in your life at one time and take a break when you feel overloaded). 4) Unfortunately, many stressful situations cannot be avoided. It is necessary to learn HOW TO MANAGE STRESS better. There are many proven methods that will reduce your anxiety. These include simple things like exercise, good nutrition and adequate rest. Also, there are certain techniques that are helpful: relaxation and breathing exercises, visualization, biofeedback and meditation. For more information about this, consult your doctor or go to a local bookstore and review the many books and tapes available on this subject. Follow Up If you feel that your anxiety is not responding to self-help measures, contact your doctor or make an appointment with a counselor. Get Prompt Medical Attention if any of the following occur: -- Your symptoms get worse -- Chest pain or trouble breathing -- Severe headache not relieved by rest and mild pain reliever -- Rapid or irregular heartbeat, fainting Schizophrenia [General Type] Schizophrenia is a chronic, severe and disabling brain disorder. The cause of schizophrenia is not yet known. It is believed to be a result of genetic and biological factors (brain chemistry and structure). Schizophrenia does run in families and occurs in about 1% of the adult population. Symptoms include: Hallucinations (seeing or hearing things that are not there) Delusions (false beliefs) Disorganized thinking and speech Social withdrawal Severe anxiety Feeling unreal Medicines and therapy can help with many of the symptoms and allow for better daily function and quality of life. These medicines take 2-4 weeks to begin working and 6-8 weeks to take full effect. It is common to feel that you are not ill and that you don't need treatment. It is important to accept the support of friends and family in continuing to take your medicine. Home Care: Be sure to take your medicine as directed even if you think you dont need it. Seek support from friends or family by talking about your feelings and thoughts. Follow Up with your doctor or therapist as advised by our staff. For more information, contact The National [place] for Mental Illness 473-795-2086 www.tacos.org Get Prompt Medical Attention if any of the following occur: Feeling like your symptoms are getting worse Feeling out of control or that you are being controlled by others Feeling like you want to harm yourself or another Unable to care for yourself Worsening hallucinations (hearing voices) Worsening depression or anxiety Paranoid Schizophrenia You have been diagnosed with paranoid schizophrenia. Schizophrenia is a chronic, severe and disabling brain disorder. The cause of schizophrenia is not yet known. It is believed to be a result of genetic and biological factors like brain chemistry and structure. Schizophrenia does run in families and occurs in about 1% of the general population. Symptoms include: Hallucinations (seeing things or hearing voices that are not there). Delusions (false beliefs), for example you may think that others are trying to harm you when they are not. You may feel the need to protect yourself at most times. Wanting to be alone and avoiding other people. Severe anxiety, feeling angry and arguing a lot with others. Medicines and therapy can help with many of the symptoms and allow for better daily function and quality of life. These medicines take 2-4 weeks to begin working and 6-8 weeks to take full effect. It is common to feel that you are not ill and that you dont need treatment. It is important to allow friends and family help you to continue to take your medicine. Home Care: Be sure to take your medicine as directed even if you think you don't need it. Talk with your family about your feelings and thoughts. Follow Up with your doctor or therapist as advised by our staff. For more information, contact The National [place] on Mental Illness 139-416-3909 www.tacos.org Get Prompt Medical Attention if any of the following occur: Feeling like your symptoms are getting worse Feeling out of control or being controlled by others Feeling like you want to harm yourself or another Unable to care for yourself Drug Abuse Use and abuse of such drugs as marijuana, amphetamines (speed, crank), cocaine, heroin or prescription pain medicines (Vicodin, codeine), sedatives and sleeping pills (Valium, Klonopin), PCP, mescaline and LSD may lead to addiction or dependence. Once this occurs, you are at greater risk for any of the following: Craving for the drug and unable to stop using the drug even though you think you want to stop (psychological dependence) Drug withdrawal symptoms if you stop taking the drug (physical dependence) Loss of your job or your family Arrest, conviction and snf sentence for possession of an illegal substance or for driving under the influence of such a substance Accidental injuries to yourself or others while you are under the influence of the drug (in a car or at home). HIV infection (much greater risk if you use IV drugs) Other sexually transmitted diseases (herpes, chlamydia, gonorrhea and others) Severe and fatal infection of the heart valves (if you use IV drugs) Stroke, heart attack, hepatitis B or C, kidney failure from overdose Home Care: Admit you have a drug problem. Ask for help from your family and close friends. Seek professional help. This could be in the form of individual psychotherapy or counseling or an outpatient, inpatient, or residential drug treatment program. Join a self-help group for drug abuse. Avoid friends who abuse drugs themselves or tempt you to continue abusing drugs. Eat a balanced diet and begin a regular exercise program. Follow Up with your doctor or as advised by our staff. Contact one of the resources below for help. National [place] on Alcoholism and Drug Dependence www.ncadd.org 993-936-GEJM Narcotics Anonymous www.na.org 504-353-7732 National Alcohol and Substance Abuse Information Center (for referral to treatment programs) www.[employer] 364-702-9602 Get Prompt Medical Attention if any of the following occur: Agitation, anxiety, unable to sleep Unintended weight loss (more than 10 to 15 pounds over 3 months) Seizure Chest pain Fever of 100.4F (38C) or higher, or as directed by your healthcare provider Excess drowsiness or inability to be awakened Shortness of breath Slow breathing under 8 breaths per minute Cough with colored sputum Redness, swelling or tenderness at an injection site You have been given the following additional information: Anxiety Reaction Schizophrenia, General Schizophrenia, Paranoid Type Drug Abuse (Electronically signed by Marcelle Urban A.R.N.P. 04/20/2016 21:12)
--- NOTE | 2016-04-20 21:13 | ED MAR SUMMARY ---
..... Medication Administration Record [facility] [address] [place] [address] Patient: SILVIA ESPARZA Visit ID: [id number] 41y, F Weight: 58.9 kg Height/Length: 61 in BMI: 24.5 ALLERGIES: Compazine, Gabapentin, morphine, Phenergan, Vancomycin, Vicodin
--- NOTE | 2016-04-20 21:13 | ED MED RECONCILIATION SUMMARY ---
Patient: SILVIA ESPARZA Medication Reconciliation Report [facility] VisitID: [id number] [address] [place] [address] 41y, F Registration Date/Time: 04/20/2016 Weight: 58.9 kg Height/Length: 61 in. BMI: 24.5 ALLERGIES: Compazine, Gabapentin, morphine, Phenergan, Vancomycin, Vicodin The patient's Home Medications are listed below: THE FOLLOWING MEDICATIONS NEED TO BE RECONCILED: Abilify Oral 10mg, daily HydrOXYzine HCl Oral 100 mg, daily Prazosin HCl Oral 2 mg, at bedtime Ranitidine HCl Oral 150 mg, daily Vraylar, pt states she was just started on this med The source(s) of the original Home Medication information: patient The following Medications were given to the patient in the Emergency Department: None. The following Medications were prescribed to the patient: None.
== END 2016-04-20 20:00 | disposition home or self-care (01) ==
LOC: ED SRH 18:41
DX: F20.0 Paranoid schizophrenia (principal); F15.121 Other stimulant abuse with intoxication delirium; F15.180 Other stimulant abuse with stimulant-induced anxiety disorder; F41.1 Generalized anxiety disorder
CPT/HCPCS: 90004; 92760; 92761; 92762; 92763; 92764; 92765; 92766; 92767; 93070

== ENCOUNTER 2016-04-23 11:37 | Emergency (ER) | payer OTHER ==
--- NOTE | 2016-04-23 14:48 | ED ORDER SUMMARY ---
..... Patient: SILVIA ESPARZA OrderSheet [facility] VisitID: [id number] [address] [place] [address] 41y, F Registration Date/Time: 04/23/2016 ORDER SHEET Weight: 61.2 kg (stated) Allergies: Compazine, Gabapentin, morphine, Phenergan, Vancomycin, Vicodin GENERAL ORDERS: CBC w Diff Urgent (13:00 04/23/2016 JCoates) (Ack 13:03 RKaruga) (15:57 SRoberts R.N.) CMP Urgent (13:00 04/23/2016 JCoates) (Ack 13:03 RKaruga) (15:57 SRoberts R.N.) MEDICATION ORDERS: IV FLUIDS: ORDER SHEET NOTES: [Electronically signed by Odin Kothari (15:49 04/23/2016)] [Electronically signed by Aissatou Bartholomew R.N. (16:18 04/23/2016)] [Electronically locked/signed by Aissatou Bartholomew R.N. (16:18 04/23/2016)]
--- NOTE | 2016-04-23 14:48 | ED ORDER SUMMARY ---
..... Patient: SILVIA ESPARZA OrderSheet [facility] VisitID: [id number] [address] [place] [address] 41y, F Registration Date/Time: 04/23/2016 ORDER SHEET Weight: 61.2 kg (stated) Allergies: Compazine, Gabapentin, morphine, Phenergan, Vancomycin, Vicodin GENERAL ORDERS: CBC w Diff Urgent (13:00 04/23/2016 JCoates) (Ack 13:03 RKaruga) (15:57 SRoberts R.N.) CMP Urgent (13:00 04/23/2016 JCoates) (Ack 13:03 RKaruga) (15:57 SRoberts R.N.) MEDICATION ORDERS: IV FLUIDS: ORDER SHEET NOTES: [Electronically signed by Odin Kothari (15:49 04/23/2016)] [Electronically signed by Aissatou Bartholomew R.N. (16:18 04/23/2016)] [Electronically locked/signed by Aissatou Bartholomew R.N. (16:18 04/23/2016)]
--- NOTE | 2016-04-23 14:48 | ED CLINICAL REPORT ---
Clinical Report - Physicians/Mid Levels [facility] [address] [place] [address] 04/23/2016 11:37 [id number] Time Seen: 12:50 Apr 23 2016. Arrived- By private vehicle. Historian- patient. HISTORY OF PRESENT ILLNESS Chief Complaint: ANXIOUS. This started today about 2 hours ago. (Patient was shooting methamphetamine into her right wrist when it suddenly swelled up, became bruised and painful. She says she is now feeling anxious with shooting pains across her head.). Recent drug use. No suicidal thoughts, self-injury inflicted or hallucinations. The symptoms are described as moderate. An injury is present. REVIEW OF SYSTEMS No enlarged lymph nodes, joint pain, chills, fever or muscle aches. No sweats, runny nose, sore throat, cough or abdominal pain. No constipation, diarrhea, nausea, vomiting or abnormal bleeding. No back pain, laceration, depression, numbness or suicidal thoughts. No weakness or easy bruising. All systems otherwise negative, except as recorded above. PAST HISTORY See nurses notes. History of drug abuse. Schizophrenia. SOCIAL HISTORY Never smoker. History of heavy IV drug use: methamphetamines. Recently used drugs. ADDITIONAL NOTES The nursing notes have been reviewed. PHYSICAL EXAM Appearance: No acute distress. Anxious. Eyes: Pupils equal, round and reactive to light. Neck: Normal inspection. CVS: Normal heart rate and rhythm. Heart sounds normal. Respiratory: Breath sounds normal. Chest nontender. Back: No tenderness. Skin: Skin warm and dry. Extremities: Right wrist: moderate tenderness and swelling and small ecchymosis located in the volar aspect of the wrist. Limited ROM secondary to pain (diminished flexion and extension). Neurovascular intact distally. Limited ROM not secondary to weakness. Psych / Neuro: Speech normal. Cognition normal. Thought content normal. Insight and judgement normal. No motor deficit. No sensory deficit. Affect is not flat. LABS, X-RAYS, AND EKG Laboratory Tests: CBC w Diff: (SANTA: 04/23/2016 13:18) ( MsgRcvd 04/23/2016 14:54) Final results Test Result Flag Units (Reference) WHITE BLOOD COUNT 6.8 K/uL (4.5-11.5) RED BLOOD COUNT 4.48 M/uL (4.00-5.20) HEMOGLOBIN 9.1 L gm/dL (12.0-16.0) HEMATOCRIT 29.8 L % (36.0-46.0) MEAN CELL VOLUME 67 L fL (80-100) MEAN CORPUSCULAR HGB 20 L pg (26-34) MEAN CORPUSCULAR HGB CONC 31 g/dL (31-37) RED CELL DISTRIBUTION WIDTH 19.2 H % (11.6-14.8) PLATELET COUNT 615 H K/uL (150-400) NEUTROPHIL % 64.4 % (50-75) LYMPH % 25.3 % (25-40) MONO % 8.2 % (3-14) EOSINOPHIL % 1.4 % (0-4) BASOPHIL % 0.7 % (0-2) RBC MORPHOLOGY RARE OVALOCYTOSIS~~RARE STOMATOCYTOSIS~~1+ MICROCYTOSIS~~3+ HYPOCHROMASIA CMP: (ASNTA: 04/23/2016 13:18) ( MsgRcvd 04/23/2016 14:16) Final results Test Result Flag Units (Reference) GLUCOSE 106 mg/dL (70-110) BUN 12 mg/dL (7-18) CREATININE 0.6 mg/dL (0.6-1.3) Estimated GFR >60 mL/min Estimated GFR- >60 mL/min Note: Persistent reduction over 3 months in eGFR<60 mL/min/1.73 m2 defines CKD. Patients with eGFR values>=60 mL/min/1.73 m2 may also have CKD if evidence ofpersistent proteinuria. Additional information may be foundat www.kidney.org. SODIUM 141 mmol/L (136-145) POTASSIUM 4.2 mmol/L (3.5-5.1) CHLORIDE 106 mmol/L (98-107) CARBON DIOXIDE 24 mmol/L (21-32) CALCIUM 8.3 L mg/dL (8.5-10.1) TOTAL PROTEIN 6.4 g/dL (6.4-8.2) ALBUMIN 3.4 g/dL (3.3-5.0) BILIRUBIN, TOTAL 0.2 mg/dL (0.0-1.0) ALKALINE PHOSPHATASE 66 U/L (46-116) AST (SGOT) 16 U/L (15-37) ALT (SGPT) 14 U/L (12-78) . PROGRESS AND PROCEDURES Course of Care: 13:07 04/23/16. PT stable. Doubt infection as sudden onset while shooting up. Regardless, will cover w/ TMP/SMX and have her get close follow up tomorrow. Area marked and basic labs collected for baseline. CLINICAL IMPRESSION Hematoma to the right wrist. 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 INSTRUCTIONS Rest at home today. No dietary restrictions. Warnings: Further evaluation is necessary in order to assess the possibility of serious illness. It is very important to follow up with a physician. GENERAL WARNINGS: Return or contact your physician immediately if your condition worsens or changes unexpectedly, if not improving as expected, or if other problems arise. Specifically return if vomiting, breathing difficulty or fever worsens. Prescription Medications: Septra DS 800 mg / 160 mg: take 1 tablet orally for 7 days. No refill. Substitution is permissible. OTC Medications: Motrin (available over the counter): take according to label instructions. Follow-up: Follow up with your doctor tomorrow as scheduled even if well. Understanding of the discharge instructions verbalized by patient. (Electronically signed by Odin Kothari, 04/23/2016 15:49)
--- NOTE | 2016-04-23 14:48 | ED CLINICAL REPORT ---
Clinical Report - Physicians/Mid Levels [facility] [address] [place] [address] 04/23/2016 11:37 [id number] Time Seen: 12:50 Apr 23 2016. Arrived- By private vehicle. Historian- patient. HISTORY OF PRESENT ILLNESS Chief Complaint: ANXIOUS. This started today about 2 hours ago. (Patient was shooting methamphetamine into her right wrist when it suddenly swelled up, became bruised and painful. She says she is now feeling anxious with shooting pains across her head.). Recent drug use. No suicidal thoughts, self-injury inflicted or hallucinations. The symptoms are described as moderate. An injury is present. REVIEW OF SYSTEMS No enlarged lymph nodes, joint pain, chills, fever or muscle aches. No sweats, runny nose, sore throat, cough or abdominal pain. No constipation, diarrhea, nausea, vomiting or abnormal bleeding. No back pain, laceration, depression, numbness or suicidal thoughts. No weakness or easy bruising. All systems otherwise negative, except as recorded above. PAST HISTORY See nurses notes. History of drug abuse. Schizophrenia. SOCIAL HISTORY Never smoker. History of heavy IV drug use: methamphetamines. Recently used drugs. ADDITIONAL NOTES The nursing notes have been reviewed. PHYSICAL EXAM Appearance: No acute distress. Anxious. Eyes: Pupils equal, round and reactive to light. Neck: Normal inspection. CVS: Normal heart rate and rhythm. Heart sounds normal. Respiratory: Breath sounds normal. Chest nontender. Back: No tenderness. Skin: Skin warm and dry. Extremities: Right wrist: moderate tenderness and swelling and small ecchymosis located in the volar aspect of the wrist. Limited ROM secondary to pain (diminished flexion and extension). Neurovascular intact distally. Limited ROM not secondary to weakness. Psych / Neuro: Speech normal. Cognition normal. Thought content normal. Insight and judgement normal. No motor deficit. No sensory deficit. Affect is not flat. LABS, X-RAYS, AND EKG Laboratory Tests: CBC w Diff: (SANTA: 04/23/2016 13:18) ( MsgRcvd 04/23/2016 14:54) Final results Test Result Flag Units (Reference) WHITE BLOOD COUNT 6.8 K/uL (4.5-11.5) RED BLOOD COUNT 4.48 M/uL (4.00-5.20) HEMOGLOBIN 9.1 L gm/dL (12.0-16.0) HEMATOCRIT 29.8 L % (36.0-46.0) MEAN CELL VOLUME 67 L fL (80-100) MEAN CORPUSCULAR HGB 20 L pg (26-34) MEAN CORPUSCULAR HGB CONC 31 g/dL (31-37) RED CELL DISTRIBUTION WIDTH 19.2 H % (11.6-14.8) PLATELET COUNT 615 H K/uL (150-400) NEUTROPHIL % 64.4 % (50-75) LYMPH % 25.3 % (25-40) MONO % 8.2 % (3-14) EOSINOPHIL % 1.4 % (0-4) BASOPHIL % 0.7 % (0-2) RBC MORPHOLOGY RARE OVALOCYTOSIS~~RARE STOMATOCYTOSIS~~1+ MICROCYTOSIS~~3+ HYPOCHROMASIA CMP: (SANTA: 04/23/2016 13:18) ( MsgRcvd 04/23/2016 14:16) Final results Test Result Flag Units (Reference) GLUCOSE 106 mg/dL (70-110) BUN 12 mg/dL (7-18) CREATININE 0.6 mg/dL (0.6-1.3) Estimated GFR >60 mL/min Estimated GFR- >60 mL/min Note: Persistent reduction over 3 months in eGFR<60 mL/min/1.73 m2 defines CKD. Patients with eGFR values>=60 mL/min/1.73 m2 may also have CKD if evidence ofpersistent proteinuria. Additional information may be foundat www.kidney.org. SODIUM 141 mmol/L (136-145) POTASSIUM 4.2 mmol/L (3.5-5.1) CHLORIDE 106 mmol/L (98-107) CARBON DIOXIDE 24 mmol/L (21-32) CALCIUM 8.3 L mg/dL (8.5-10.1) TOTAL PROTEIN 6.4 g/dL (6.4-8.2) ALBUMIN 3.4 g/dL (3.3-5.0) BILIRUBIN, TOTAL 0.2 mg/dL (0.0-1.0) ALKALINE PHOSPHATASE 66 U/L (46-116) AST (SGOT) 16 U/L (15-37) ALT (SGPT) 14 U/L (12-78) . PROGRESS AND PROCEDURES Course of Care: 13:07 04/23/16. PT stable. Doubt infection as sudden onset while shooting up. Regardless, will cover w/ TMP/SMX and have her get close follow up tomorrow. Area marked and basic labs collected for baseline. CLINICAL IMPRESSION Hematoma to the right wrist. 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 INSTRUCTIONS Rest at home today. No dietary restrictions. Warnings: Further evaluation is necessary in order to assess the possibility of serious illness. It is very important to follow up with a physician. GENERAL WARNINGS: Return or contact your physician immediately if your condition worsens or changes unexpectedly, if not improving as expected, or if other problems arise. Specifically return if vomiting, breathing difficulty or fever worsens. Prescription Medications: Septra DS 800 mg / 160 mg: take 1 tablet orally for 7 days. No refill. Substitution is permissible. OTC Medications: Motrin (available over the counter): take according to label instructions. Follow-up: Follow up with your doctor tomorrow as scheduled even if well. Understanding of the discharge instructions verbalized by patient. (Electronically signed by Odin Kothari, 04/23/2016 15:49)
--- NOTE | 2016-04-23 14:48 | ED NURSING NOTES ---
Clinical Report - Nurses [facility] [address] [place] [address] 04/23/2016 11:37 [id number] Triage time 1145. ART COMA SCORE: [place] Coma Scale: 15- eyes open spontaneously (4); best verbal response- oriented x 4 (5); best motor response- obeys commands (6). --11:48 Effie Olmstead R.N. 11:46 04/23/16. BP: 98/84. HR: 111 (regular). RR: 20 (unlabored). O2 saturation: 100% on room air. Temp: 98.5 F (oral). Pain level now: 04/03. --11:48 Effie Olmstead R.N. Acuity: LEVEL 3. 11:45. ART COMA SCORE: [place] Coma Scale: 15- eyes open spontaneously (4); best verbal response- oriented x 4 (5); best motor response- obeys commands (6). --11:51 Effie Olmstead R.N. Chief Complaint: RIGHT UPPER EXTREMITY PAIN and SWELLING. Location of symptoms- right wrist. 11:45. --12:00 Effie Olmstead R.N. Weight: 61.2 kg stated. Height/Length: 61 inches Per Patient. BMI: 25.5. --11:44 Effie Olmstaed R.N. Medications Abilify Oral 10mg, daily. HydrOXYzine HCl Oral 100 mg, daily. Prazosin HCl Oral 2 mg, at bedtime. Ranitidine HCl Oral 150 mg, daily. Vraylar (pt states she was just started on this med). --12:11 Aissatou Bartholomew R.N. Allergies Compazine. Gabapentin. morphine. Phenergan. Vancomycin. Vicodin. --12:11 Aissatou Bartholomew R.N. History Arrived by private vehicle. Historian: patient. Unaccompanied. ( pt c/o right wrist pain after shooting up meth 2 hours ago in her right hand. pt also c/o her heading shaking inside.). This occurred (2 hours ago). Occurred at home. SOCIAL HX: Never smoker. History of drug use: methamphetamines. Recently used drugs today. Under influence in ED. No alcohol use. FALL RISK ASSESSMENT: Fall risk assessment completed. No fall risk identified. NUTRITIONAL RISK ASSESSMENT: The nutritional risk assessment revealed no deficiencies. LEARNING NEEDS ASSESSMENT: The learning needs assessment revealed no barriers. SKIN INTEGRITY ASSESSMENT: Skin integrity risk assessment completed. No skin integrity risk identified. --11:51 Effie Olmstead R.N. Interventions ID band on patient. --11:48 Effie Olmstead R.N. ID band on patient. To treatment room. --11:51 Effie Olmstead R.N. PHYSICAL ASSESSMENT Ambulatory to room. GENERAL / NEURO / PSYCH: Oriented X 4. Alert. Appears in no acute distress. Appears anxious. EXTREMITIES: Right wrist: swelling and ecchymosis. SKIN: Skin intact. Skin is warm and dry. --11:56 Effie Olmstead R.N. NURSING PROGRESS NOTES Two patient identifiers checked. Call light placed in reach. Bed placed in lowest position. Brakes of bed on. Patient ready for evaluation. --11:51 Effie Olmstead R.N. Extremity elevated. Lights dimmed. --12:36 Aissatou Bartholomew R.N. 14:46 04/23/16. BP: 112/72. HR: 71. RR: 16. O2 saturation: 100% on room air. Pain level now: 06/01. 12:36 04/23/16. BP: 110/65. HR: 81. RR: 16. O2 saturation: 100% on room air. --14:47 Aissatou Bartholomew R.N. DISPOSITION / DISCHARGE Condition at departure: improved. No learning barriers present. Discharge instructions provided and reviewed with the patient. Reviewed medication(s) side effects, precautions, dosing and course information. Prescription(s) given to the patient. Patient verbalized understanding. Written instructions provided in Japanese. The patient was discharged home. She left the Emergency Department ambulatory and via bus. Medication list reviewed and validated. --16:17 Aissatou Bartholomew R.N. 14:46 04/23/16. BP: 112/72. HR: 71. RR: 16. O2 saturation: 100% on room air. Pain level now: 06/01. 12:36 04/23/16. BP: 110/65. HR: 81. RR: 16. O2 saturation: 100% on room air. 11:46 04/23/16. BP: 98/84. HR: 111 (regular). RR: 20 (unlabored). O2 saturation: 100% on room air. Temp: 98.5 F (oral). Pain level now: 04/03. --16:17 Aissatou Bartholomew R.N. Locked/Released at 04/23/2016 16:18 by Aissatou Bartholomew R.N.
--- NOTE | 2016-04-23 16:18 | ED DISCHARGE INSTRUCTIONS ---
Patient: SILVIA ESPARZA General Instructions [facility]: [id number] [place] [address] 41y, F Registration Date/Time: 04/23/2016 Hematoma to the right wrist. 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 INSTRUCTIONS Rest at home today. No dietary restrictions. Warnings: Further evaluation is necessary in order to assess the possibility of serious illness. It is very important to follow up with a physician. GENERAL WARNINGS: Return or contact your physician immediately if your condition worsens or changes unexpectedly, if not improving as expected, or if other problems arise. Specifically return if vomiting, breathing difficulty or fever worsens. Prescription Medications: Septra DS 800 mg / 160 mg: take 1 tablet orally for 7 days. No refill. Substitution is permissible. OTC Medications: Motrin (available over the counter): take according to label instructions. Follow-up: Follow up with your doctor tomorrow as scheduled even if well. Understanding of the discharge instructions verbalized by patient. ADDITIONAL INFORMATION Hematoma A hematoma is caused by an injury with damage to small blood vessels. This causes blood to leak into the tissues. Blood forms a pocket under the skin that swells and looks like a purplish patch. Gradually the blood in the hematoma is absorbed back into the body. The swelling and pain of the hematoma will go away. This takes from one to four weeks, depending on the size of the hematoma. The skin over the hematoma may turn bluish then brown and yellow as the blood is dissolved and absorbed. Home Care: Limit motion of the joints near the hematoma. If the hematoma is large and painful, you should avoid sports and other vigorous physical activity until the swelling and pain goes away. Apply an ice pack (ice cubes in a plastic bag, wrapped in a towel) over the injured area for 20 minutes every 1-2 hours the first day. You should continue with ice packs 3-4 times a day for the next two days. Continue the use of ice packs for relief of pain and swelling as needed. You may use acetaminophen (Tylenol) or ibuprofen (Motrin, Advil) to control pain, unless another pain medicine was prescribed. [ NOTE : If you have chronic liver or kidney disease or ever had a stomach ulcer or GI bleeding, talk with your doctor before using these medicines.] Follow Up with your doctor or as advised by our staff. [ NOTE: A radiologist will review any X-rays that were taken. We will notify you of any new findings that may affect your care.] Get Prompt Medical Attention if any of the following occur: Redness around the hematoma Increase in pain or warmth in the hematoma Increase in size of the hematoma Fever of 100.4F (38C) or higher, or as directed by your healthcare provider If the hematoma is on the arm or leg, watch for: Increased swelling or pain in the extremity Numbness or tingling or blue color of the hand or foot Paranoid Schizophrenia You have been diagnosed with paranoid schizophrenia. Schizophrenia is a chronic, severe and disabling brain disorder. The cause of schizophrenia is not yet known. It is believed to be a result of genetic and biological factors like brain chemistry and structure. Schizophrenia does run in families and occurs in about 1% of the general population. Symptoms include: Hallucinations (seeing things or hearing voices that are not there). Delusions (false beliefs), for example you may think that others are trying to harm you when they are not. You may feel the need to protect yourself at most times. Wanting to be alone and avoiding other people. Severe anxiety, feeling angry and arguing a lot with others. Medicines and therapy can help with many of the symptoms and allow for better daily function and quality of life. These medicines take 2-4 weeks to begin working and 6-8 weeks to take full effect. It is common to feel that you are not ill and that you dont need treatment. It is important to allow friends and family help you to continue to take your medicine. Home Care: Be sure to take your medicine as directed even if you think you don't need it. Talk with your family about your feelings and thoughts. Follow Up with your doctor or therapist as advised by our staff. For more information, contact [employer] 709-853-4033 www.tacos.org Get Prompt Medical Attention if any of the following occur: Feeling like your symptoms are getting worse Feeling out of control or being controlled by others Feeling like you want to harm yourself or another Unable to care for yourself Sulfamethoxazole, Trimethoprim Oral tablet What is this medicine? SULFAMETHOXAZOLE; TRIMETHOPRIM or SMX-TMP (suhl fuh meth OK kishan zohl; trye METH oh prim) is a combination of a sulfonamide antibiotic and a second antibiotic, trimethoprim. It is used to treat or prevent certain kinds of bacterial infections. It will not work for colds, flu, or other viral infections. How should I use this medicine? Take this medicine by mouth with a full glass of water. Follow the directions on the prescription label. Take your medicine at regular intervals. Do not take it more often than directed. Do not skip doses or stop your medicine early. Talk to your tank farm gauger regarding the use of this medicine in children. Special care may be needed. This medicine has been used in children as young as 2 months of age. What side effects may I notice from receiving this medicine? Side effects that you should report to your doctor or health career development counselor as soon as possible: allergic reactions like skin rash or hives, swelling of the face, lips, or tongue breathing problems fever or chills, sore throat irregular heartbeat, chest pain joint or muscle pain pain or difficulty passing urine red pinpoint spots on skin redness, blistering, peeling or loosening of the skin, including inside the mouth unusual bleeding or bruising unusually weak or tired yellowing of the eyes or skin Side effects that usually do not require medical attention (report to your doctor or health career development counselor if they continue or are bothersome): diarrhea dizziness headache loss of appetite nausea, vomiting nervousness What may interact with this medicine? Do not take this medicine with any of the following medications: aminobenzoate potassium dofetilide metronidazole This medicine may also interact with the following medications: ARPAN inhibitors like benazepril, enalapril, lisinopril, and ramipril cyclosporine digoxin diuretics indomethacin medicines for diabetes methenamine methotrexate phenytoin potassium supplements pyrimethamine sulfinpyrazone tricyclic antidepressants warfarin What if I miss a dose? If you miss a dose, take it as soon as you can. If it is almost time for your next dose, take only that dose. Do not take double or extra doses. Where should I keep my medicine? Keep out of the reach of children. Store at room temperature between 20 to 25 degrees C (68 to 77 degrees F). Protect from light. Throw away any unused medicine after the expiration date. What should I tell my health care provider before I take this medicine? They need to know if you have any of these conditions: anemia asthma being treated with anticonvulsants if you frequently drink alcohol containing drinks kidney disease liver disease low level of folic acid or chhwlwd-2-albdyegmc dehydrogenase poor nutrition or malabsorption porphyria severe allergies thyroid disorder an unusual or allergic reaction to sulfamethoxazole, trimethoprim, sulfa drugs, other medicines, foods, dyes, or preservatives or trying to get breast-feeding What should I watch for while using this medicine? Tell your doctor or health career development counselor if your symptoms do not improve. Drink several glasses of water a day to reduce the risk of kidney problems. Do not treat diarrhea with over the counter products. Contact your doctor if you have diarrhea that lasts more than 2 days or if it is severe and watery. This medicine can make you more sensitive to the sun. Keep out of the sun. If you cannot avoid being in the sun, wear protective clothing and use a sunscreen. Do not use sun lamps or tanning beds/booths. You have been given the following additional information: Hematoma Schizophrenia, Paranoid Type Sulfamethoxazole, Trimethoprim Oral tablet Rest at home today. (Electronically signed by Odin Kothari, 04/23/2016 15:49)
--- NOTE | 2016-04-23 16:18 | ED MAR SUMMARY ---
..... Medication Administration Record [facility] [address] [place] [address] Patient: SILVIA ESPARZA Visit ID: [id number] 41y, F Weight: 61.2 kg Height/Length: 61 in BMI: 25.5 ALLERGIES: Compazine, Gabapentin, morphine, Phenergan, Vancomycin, Vicodin
--- NOTE | 2016-04-23 16:18 | ED DISCHARGE INSTRUCTIONS ---
Patient: SILVIA ESPARZA General Instructions [facility] VisitID: [id number] [place] [address] 41y, F Registration Date/Time: 04/23/2016 Hematoma to the right wrist. 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 INSTRUCTIONS Rest at home today. No dietary restrictions. Warnings: Further evaluation is necessary in order to assess the possibility of serious illness. It is very important to follow up with a physician. GENERAL WARNINGS: Return or contact your physician immediately if your condition worsens or changes unexpectedly, if not improving as expected, or if other problems arise. Specifically return if vomiting, breathing difficulty or fever worsens. Prescription Medications: Septra DS 800 mg / 160 mg: take 1 tablet orally for 7 days. No refill. Substitution is permissible. OTC Medications: Motrin (available over the counter): take according to label instructions. Follow-up: Follow up with your doctor tomorrow as scheduled even if well. Understanding of the discharge instructions verbalized by patient. ADDITIONAL INFORMATION Hematoma A hematoma is caused by an injury with damage to small blood vessels. This causes blood to leak into the tissues. Blood forms a pocket under the skin that swells and looks like a purplish patch. Gradually the blood in the hematoma is absorbed back into the body. The swelling and pain of the hematoma will go away. This takes from one to four weeks, depending on the size of the hematoma. The skin over the hematoma may turn bluish then brown and yellow as the blood is dissolved and absorbed. Home Care: Limit motion of the joints near the hematoma. If the hematoma is large and painful, you should avoid sports and other vigorous physical activity until the swelling and pain goes away. Apply an ice pack (ice cubes in a plastic bag, wrapped in a towel) over the injured area for 20 minutes every 1-2 hours the first day. You should continue with ice packs 3-4 times a day for the next two days. Continue the use of ice packs for relief of pain and swelling as needed. You may use acetaminophen (Tylenol) or ibuprofen (Motrin, Advil) to control pain, unless another pain medicine was prescribed. [ NOTE : If you have chronic liver or kidney disease or ever had a stomach ulcer or GI bleeding, talk with your doctor before using these medicines.] Follow Up with your doctor or as advised by our staff. [ NOTE: A radiologist will review any X-rays that were taken. We will notify you of any new findings that may affect your care.] Get Prompt Medical Attention if any of the following occur: Redness around the hematoma Increase in pain or warmth in the hematoma Increase in size of the hematoma Fever of 100.4F (38C) or higher, or as directed by your healthcare provider If the hematoma is on the arm or leg, watch for: Increased swelling or pain in the extremity Numbness or tingling or blue color of the hand or foot Paranoid Schizophrenia You have been diagnosed with paranoid schizophrenia. Schizophrenia is a chronic, severe and disabling brain disorder. The cause of schizophrenia is not yet known. It is believed to be a result of genetic and biological factors like brain chemistry and structure. Schizophrenia does run in families and occurs in about 1% of the general population. Symptoms include: Hallucinations (seeing things or hearing voices that are not there). Delusions (false beliefs), for example you may think that others are trying to harm you when they are not. You may feel the need to protect yourself at most times. Wanting to be alone and avoiding other people. Severe anxiety, feeling angry and arguing a lot with others. Medicines and therapy can help with many of the symptoms and allow for better daily function and quality of life. These medicines take 2-4 weeks to begin working and 6-8 weeks to take full effect. It is common to feel that you are not ill and that you dont need treatment. It is important to allow friends and family help you to continue to take your medicine. Home Care: Be sure to take your medicine as directed even if you think you don't need it. Talk with your family about your feelings and thoughts. Follow Up with your doctor or therapist as advised by our staff. For more information, contact The [employer] 319-085-5050 www.[facility].org Get Prompt Medical Attention if any of the following occur: Feeling like your symptoms are getting worse Feeling out of control or being controlled by others Feeling like you want to harm yourself or another Unable to care for yourself Sulfamethoxazole, Trimethoprim Oral tablet What is this medicine? SULFAMETHOXAZOLE; TRIMETHOPRIM or SMX-TMP (suhl fuh meth OK kishan zohl; trye METH oh prim) is a combination of a sulfonamide antibiotic and a second antibiotic, trimethoprim. It is used to treat or prevent certain kinds of bacterial infections. It will not work for colds, flu, or other viral infections. How should I use this medicine? Take this medicine by mouth with a full glass of water. Follow the directions on the prescription label. Take your medicine at regular intervals. Do not take it more often than directed. Do not skip doses or stop your medicine early. Talk to your collet making machine operator regarding the use of this medicine in children. Special care may be needed. This medicine has been used in children as young as 2 months of age. What side effects may I notice from receiving this medicine? Side effects that you should report to your doctor or health healthcare administration internship as soon as possible: allergic reactions like skin rash or hives, swelling of the face, lips, or tongue breathing problems fever or chills, sore throat irregular heartbeat, chest pain joint or muscle pain pain or difficulty passing urine red pinpoint spots on skin redness, blistering, peeling or loosening of the skin, including inside the mouth unusual bleeding or bruising unusually weak or tired yellowing of the eyes or skin Side effects that usually do not require medical attention (report to your doctor or health healthcare administration internship if they continue or are bothersome): diarrhea dizziness headache loss of appetite nausea, vomiting nervousness What may interact with this medicine? Do not take this medicine with any of the following medications: aminobenzoate potassium dofetilide metronidazole This medicine may also interact with the following medications: ARPAN inhibitors like benazepril, enalapril, lisinopril, and ramipril cyclosporine digoxin diuretics indomethacin medicines for diabetes methenamine methotrexate phenytoin potassium supplements pyrimethamine sulfinpyrazone tricyclic antidepressants warfarin What if I miss a dose? If you miss a dose, take it as soon as you can. If it is almost time for your next dose, take only that dose. Do not take double or extra doses. Where should I keep my medicine? Keep out of the reach of children. Store at room temperature between 20 to 25 degrees C (68 to 77 degrees F). Protect from light. Throw away any unused medicine after the expiration date. What should I tell my health care provider before I take this medicine? They need to know if you have any of these conditions: anemia asthma being treated with anticonvulsants if you frequently drink alcohol containing drinks kidney disease liver disease low level of folic acid or [id number]-[id number] dehydrogenase poor nutrition or malabsorption porphyria severe allergies thyroid disorder an unusual or allergic reaction to sulfamethoxazole, trimethoprim, sulfa drugs, other medicines, foods, dyes, or preservatives or trying to get breast-feeding What should I watch for while using this medicine? Tell your doctor or health healthcare administration internship if your symptoms do not improve. Drink several glasses of water a day to reduce the risk of kidney problems. Do not treat diarrhea with over the counter products. Contact your doctor if you have diarrhea that lasts more than 2 days or if it is severe and watery. This medicine can make you more sensitive to the sun. Keep out of the sun. If you cannot avoid being in the sun, wear protective clothing and use a sunscreen. Do not use sun lamps or tanning beds/booths. You have been given the following additional information: Hematoma Schizophrenia, Paranoid Type Sulfamethoxazole, Trimethoprim Oral tablet Rest at home today. (Electronically signed by Odin Kothari, 04/23/2016 15:49)
--- NOTE | 2016-04-23 16:18 | ED MAR SUMMARY ---
..... Medication Administration Record [facility] [address] [place] [address] Patient: SILVIA ESPARZA Visit ID: [id number] 41y, F Weight: 61.2 kg Height/Length: 61 in BMI: 25.5 ALLERGIES: Compazine, Gabapentin, morphine, Phenergan, Vancomycin, Vicodin
--- NOTE | 2016-04-23 16:18 | ED MED RECONCILIATION SUMMARY ---
Patient: SILVIA ESPARZA Medication Reconciliation Report [facility] VisitID: [id number] [address] [place] [address] 41y, F Registration Date/Time: 04/23/2016 Weight: 61.2 kg Height/Length: 61 in. BMI: 25.5 ALLERGIES: Compazine, Gabapentin, morphine, Phenergan, Vancomycin, Vicodin The patient's Home Medications are listed below: THE FOLLOWING MEDICATIONS NEED TO BE RECONCILED: Abilify Oral 10mg, daily HydrOXYzine HCl Oral 100 mg, daily Prazosin HCl Oral 2 mg, at bedtime Ranitidine HCl Oral 150 mg, daily Vraylar, pt states she was just started on this med The source(s) of the original Home Medication information: Not obtained. The following Medications were given to the patient in the Emergency Department: None. The following Medications were prescribed to the patient: Motrin (available over the counter): take according to label instructions. -- Odin Kothari Septra DS 800 mg / 160 mg: take 1 tablet orally for 7 days. No refill. Substitution is permissible. -- Odin Kothari
--- NOTE | 2016-04-23 16:18 | ED MED RECONCILIATION SUMMARY ---
Patient: SILVIA ESPARZA Medication Reconciliation Report [facility] VisitID: [id number] [address] [place] [address] 41y, F Registration Date/Time: 04/23/2016 Weight: 61.2 kg Height/Length: 61 in. BMI: 25.5 ALLERGIES: Compazine, Gabapentin, morphine, Phenergan, Vancomycin, Vicodin The patient's Home Medications are listed below: THE FOLLOWING MEDICATIONS NEED TO BE RECONCILED: Abilify Oral 10mg, daily HydrOXYzine HCl Oral 100 mg, daily Prazosin HCl Oral 2 mg, at bedtime Ranitidine HCl Oral 150 mg, daily Vraylar, pt states she was just started on this med The source(s) of the original Home Medication information: Not obtained. The following Medications were given to the patient in the Emergency Department: None. The following Medications were prescribed to the patient: Motrin (available over the counter): take according to label instructions. -- Odin Kothari Septra DS 800 mg / 160 mg: take 1 tablet orally for 7 days. No refill. Substitution is permissible. -- Odin Kothari
== END 2016-04-23 15:00 | disposition home or self-care (01) ==
LOC: ED SRH 11:37
DX: M79.89 Other specified soft tissue disorders (principal); F20.1 Disorganized schizophrenia; F15.180 Other stimulant abuse with stimulant-induced anxiety disorder; Z79.899 Other long term (current) drug therapy; Z88.1 Allergy status to other antibiotic agents; Z88.5 Allergy status to narcotic agent; Z88.8 Allergy status to other drugs, medicaments and biological substances
CPT/HCPCS: 90074; 90100; 95059

== ENCOUNTER 2016-04-25 14:01 | Emergency (ER) | payer OTHER ==
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
--- NOTE | 2016-04-25 15:42 | ED CLINICAL REPORT ---
Clinical Report - Physicians/Mid Levels [facility] [address] [place] [address] 04/25/2016 14:01 Patient: SILVIA ESPARZA Time Seen: 14:23. Arrived- By private vehicle. Historian- patient. RETURN VISIT: recently seen in this ED by another physician. Seen now for the same problem as before. HISTORY OF PRESENT ILLNESS Chief Complaint: SUICIDAL THOUGHTS and PARANOID. This started ongoing. States attempted to reach [facility] Wednesday and they were not in clinic. The patient has experienced situational problems. Recent methamphetamines use. The patient has had anxiety and hallucinations. Has been depressed. Has had suicidal thoughts ("I am scared"). No self-injury inflicted. The symptoms are described as moderate. No injury is present. Additional history - chronic mental illness, drug use-ongoing meth, noncompliance w/ care, ED overuse. Homeless-has store shopper w/ [facility] trying to get her housing. Similar symptoms previously: Seen in the ED. Evaluation/treatment: urinalysis. Diagnosis: schizophrenia, drug abuse and situational problems. ( PTSD,schizophrenia, anxiety,meth use). Recent medical care: Seen for similar symptoms. REVIEW OF SYSTEMS No headache, chest pain, abdominal pain, fever or difficulty breathing. PAST HISTORY See nurses notes. Depression. History of drug abuse. Prior suicide attempt. No history of cancer, hypertension or diabetes mellitus. Psychiatric illness. No history of alcoholism. Surgeries: . Tonsillectomy. (ankle). Medications: HydrOXYzine HCl Oral 100 mg, daily. Prazosin HCl Oral 2 mg, at bedtime. Ranitidine HCl Oral 150 mg, daily. Vraylar (pt states she was just started on this med). Allergies: Compazine. Gabapentin. morphine. Phenergan. Vancomycin. Vicodin. SOCIAL HISTORY Never smoker. History of heavy IV drug use: methamphetamines. No alcohol use. No social support. No place to stay. ADDITIONAL NOTES The nursing notes have been reviewed. PHYSICAL EXAM Vital Signs: Have been reviewed as normal and appear to be correct. Appearance: Alert. No acute distress. Appearance is normal. Patient in apparent distress due to anxiety. Anxious. Eyes: Pupils equal, round and reactive to light. Neck: Normal inspection. Neck supple. CVS: Normal heart rate and rhythm. Heart sounds normal. Respiratory: Breath sounds normal. Chest nontender. Skin: Skin warm and dry. Normal skin color. Normal skin turgor. Extremities: Extremities exhibit normal ROM. Psych / Neuro: Appears depressed. She is not disoriented. She expresses suicidal thoughts and obsessions and compulsions. Insight and judgement normal. No cerebellar findings. LABS, X-RAYS, AND EKG Laboratory Tests: Laboratory tests have been ordered, with results reviewed and considered in the medical decision making process. Breathalyzer: 000 . PROGRESS AND PROCEDURES Course of Care: 14:31 04/25/16. pt evaluated. Cooperative. Care plan in ERIC rev'd. Pt states "I know I am just a joke here, but I am scared I will hurt myself and don't know what to do:. [facility] after hours paged. Dr Stanislav Sandoval physician available for consult 14:06 04/25/16. BP: 125/74. HR: 97. RR: 16. O2 saturation: 98% on room air. Temp: 97.8 F (oral). Weight: 61.2 kg. Patient's physical condition is suitable for admit if desired/indicated. 14:59 04/25/16. pt is spoke w/ emergency worker from [facility] on phone. Plan: [facility] [place]. does not meet criteria for invol, not interested in [facility]. 15:45 04/25/16. Discharged stable condition-no beds available-does not desire [facility]-per Pat at [facility], pt able to be seen in clinic Wednesday AM. Reviewed w/ her. Verbalizes understanding. Patient is stable. Consult obtained. call placed 14:30 to [facility] after hours mental health pager per mental health care plan. Patient counseled in person several times regarding the patient's condition and need for follow-up. Old ED records reviewed. Patient has had multiple ED visits (ERIC care plan notes rev'd). Differential Diagnosis: Above considerations are based on history, past history and social history. Disposition: Condition: stable. CLINICAL IMPRESSION Suicidal ideation Chronic substance abuse- methamphetamines. Chronic mental illness. INSTRUCTIONS (Unfortunately, there were no beds available this weekend. Pat said you can walk in any time after 8 am on Wednesday and the team there will work with you-both on housing and on meds/ getting an inpatient bed. You can return here if things get worse/ triage bed desired-we can reactivate the process. Best wishes in managing this!). Warnings: GENERAL WARNINGS: Return or contact your physician immediately if your condition worsens or changes unexpectedly, if not improving as expected, or if other problems arise. Follow-up: Follow up with your doctor Wednesday. Understanding of the discharge instructions verbalized by patient. (Electronically signed by Shaina Schmidt A.R.N.P. 04/25/2016 16:49)
--- NOTE | 2016-04-25 15:42 | ED ORDER SUMMARY ---
..... Patient: SILVIA ESPARZA OrderSheet [facility] VisitID: [id number] [place] [address] 41y, F Registration Date/Time: 04/25/2016 ORDER SHEET Weight: 61.2 kg Allergies: Compazine, Gabapentin, morphine, Phenergan, Vancomycin, Vicodin GENERAL ORDERS: Breathalyzer (14:20 04/25/2016 Cyndee R.N. verbal order read back to STtej A.R.N.P.) (14:20 Cyndee R.N.) Urine Drug Screen Urgent (14:26 04/25/2016 SThom A.R.N.P.) ([facility] 14:29 TBerglchito) (Cancelled: Unable to [id number]:10 Cyndee R.N.) MEDICATION ORDERS: IV FLUIDS: ORDER SHEET NOTES: [Electronically signed by Shaina Schmidt.R.N.P. (16:49 04/25/2016)] [Electronically signed by Fabricio Hdz R.N. (17:14 04/25/2016)] [Electronically locked/signed by Fabricio Hdz R.N. (17:14 04/25/2016)]
--- NOTE | 2016-04-25 15:42 | ED ORDER SUMMARY ---
..... Patient: SILVIA ESPARZA OrderSheet [facility] VisitID: [id number] [place] [address] 41y, F Registration Date/Time: 04/25/2016 ORDER SHEET Weight: 61.2 kg Allergies: Compazine, Gabapentin, morphine, Phenergan, Vancomycin, Vicodin GENERAL ORDERS: Breathalyzer (14:20 04/25/2016 Cyndee R.N. verbal order read back to STtej A.R.N.P.) (14:20 Cyndee R.N.) Urine Drug Screen Urgent (14:26 04/25/2016 SThom A.R.N.P.) ([facility] 14:29 TBerglchito) (Cancelled: Unable to [id number]:10 Cyndee R.N.) MEDICATION ORDERS: IV FLUIDS: ORDER SHEET NOTES: [Electronically signed by Shaina Schmidt.R.N.P. (16:49 04/25/2016)] [Electronically signed by Fabricio Hdz R.N. (17:14 04/25/2016)] [Electronically locked/signed by Fabricio Hdz R.N. (17:14 04/25/2016)]
--- NOTE | 2016-04-25 15:42 | ED CLINICAL REPORT ---
Clinical Report - Physicians/Mid Levels [facility] [address] [place] [address] 04/25/2016 14:01 Patient: SILVIA ESPARZA Time Seen: 14:23. Arrived- By private vehicle. Historian- patient. RETURN VISIT: recently seen in this ED by another physician. Seen now for the same problem as before. HISTORY OF PRESENT ILLNESS Chief Complaint: SUICIDAL THOUGHTS and PARANOID. This started ongoing. States attempted to reach [facility] Wednesday and they were not in clinic. The patient has experienced situational problems. Recent methamphetamines use. The patient has had anxiety and hallucinations. Has been depressed. Has had suicidal thoughts ("I am scared"). No self-injury inflicted. The symptoms are described as moderate. No injury is present. Additional history - chronic mental illness, drug use-ongoing meth, noncompliance w/ care, ED overuse. Homeless-has television director w/ [facility] trying to get her housing. Similar symptoms previously: Seen in the ED. Evaluation/treatment: urinalysis. Diagnosis: schizophrenia, drug abuse and situational problems. ( PTSD,schizophrenia, anxiety,meth use). Recent medical care: Seen for similar symptoms. REVIEW OF SYSTEMS No headache, chest pain, abdominal pain, fever or difficulty breathing. PAST HISTORY See nurses notes. Depression. History of drug abuse. Prior suicide attempt. No history of cancer, hypertension or diabetes mellitus. Psychiatric illness. No history of alcoholism. Surgeries: . Tonsillectomy. (ankle). Medications: HydrOXYzine HCl Oral 100 mg, daily. Prazosin HCl Oral 2 mg, at bedtime. Ranitidine HCl Oral 150 mg, daily. Vraylar (pt states she was just started on this med). Allergies: Compazine. Gabapentin. morphine. Phenergan. Vancomycin. Vicodin. SOCIAL HISTORY Never smoker. History of heavy IV drug use: methamphetamines. No alcohol use. No social support. No place to stay. ADDITIONAL NOTES The nursing notes have been reviewed. PHYSICAL EXAM Vital Signs: Have been reviewed as normal and appear to be correct. Appearance: Alert. No acute distress. Appearance is normal. Patient in apparent distress due to anxiety. Anxious. Eyes: Pupils equal, round and reactive to light. Neck: Normal inspection. Neck supple. CVS: Normal heart rate and rhythm. Heart sounds normal. Respiratory: Breath sounds normal. Chest nontender. Skin: Skin warm and dry. Normal skin color. Normal skin turgor. Extremities: Extremities exhibit normal ROM. Psych / Neuro: Appears depressed. She is not disoriented. She expresses suicidal thoughts and obsessions and compulsions. Insight and judgement normal. No cerebellar findings. LABS, X-RAYS, AND EKG Laboratory Tests: Laboratory tests have been ordered, with results reviewed and considered in the medical decision making process. Breathalyzer: 000 . PROGRESS AND PROCEDURES Course of Care: 14:31 04/25/16. pt evaluated. Cooperative. Care plan in ERIC rev'd. Pt states "I know I am just a joke here, but I am scared I will hurt myself and don't know what to do:. [facility] after hours paged. Dr Stanislav Sandoval physician available for consult 14:06 04/25/16. BP: 125/74. HR: 97. RR: 16. O2 saturation: 98% on room air. Temp: 97.8 F (oral). Weight: 61.2 kg. Patient's physical condition is suitable for admit if desired/indicated. 14:59 04/25/16. pt is spoke w/ emergency worker from [facility] on phone. Plan: interested in [facility] bed at [place]. does not meet criteria for invol, not interested in [facility] bed. 15:45 04/25/16. Discharged stable condition-no beds available-does not desire [facility] bed-per Pat at [facility], pt able to be seen in clinic Wednesday AM. Reviewed w/ her. Verbalizes understanding. Patient is stable. Consult obtained. call placed 14:30 to [facility] after hours mental health pager per mental health care plan. Patient counseled in person several times regarding the patient's condition and need for follow-up. Old ED records reviewed. Patient has had multiple ED visits (ERIC care plan notes rev'd). Differential Diagnosis: Above considerations are based on history, past history and social history. Disposition: Condition: stable. CLINICAL IMPRESSION Suicidal ideation Chronic substance abuse- methamphetamines. Chronic mental illness. INSTRUCTIONS (Unfortunately, there were no beds available this weekend. Pat said you can walk in any time after 8 am on Wednesday and the team there will work with you-both on housing and on meds/ getting an inpatient bed. You can return here if things get worse/ triage bed desired-we can reactivate the process. Best wishes in managing this!). Warnings: GENERAL WARNINGS: Return or contact your physician immediately if your condition worsens or changes unexpectedly, if not improving as expected, or if other problems arise. Follow-up: Follow up with your doctor Wednesday. Understanding of the discharge instructions verbalized by patient. (Electronically signed by Shaina Schmidt A.R.N.P. 04/25/2016 16:49)
--- NOTE | 2016-04-25 17:15 | ED MED RECONCILIATION SUMMARY ---
Patient: SILVIA ESPARZA Medication Reconciliation Report [facility] VisitID: [id number] [address] [place] [address] 41y, F Registration Date/Time: 04/25/2016 Weight: 61.2 kg Height/Length: 61 in. BMI: 25.5 ALLERGIES: Compazine, Gabapentin, morphine, Phenergan, Vancomycin, Vicodin The patient's Home Medications are listed below: THE FOLLOWING MEDICATIONS NEED TO BE RECONCILED: HydrOXYzine HCl Oral 100 mg, daily Prazosin HCl Oral 2 mg, at bedtime Ranitidine HCl Oral 150 mg, daily Vraylar, pt states she was just started on this med The source(s) of the original Home Medication information: Not obtained. The following Medications were given to the patient in the Emergency Department: None. The following Medications were prescribed to the patient: None.
--- NOTE | 2016-04-25 17:15 | ED MAR SUMMARY ---
..... Medication Administration Record Merged With [facility] [address] [place] [id number] Patient: SILVIA ESPARZA Visit ID: [id number] 41y, F Weight: 61.2 kg Height/Length: 61 in BMI: 25.5 ALLERGIES: Compazine, Gabapentin, morphine, Phenergan, Vancomycin, Vicodin
--- NOTE | 2016-04-25 17:15 | ED DISCHARGE INSTRUCTIONS ---
Patient: SILVIA ESPARZA General Instructions [facility] VisitID: [id number] [place] [address] 41y, F Registration Date/Time: 04/25/2016 Suicidal ideation Chronic substance abuse- methamphetamines. Chronic mental illness. INSTRUCTIONS (Unfortunately, there were no beds available this weekend. Pat said you can walk in any time after 8 am on Wednesday and the team there will work with you-both on housing and on meds/ getting an inpatient bed. You can return here if things get worse/ triage bed desired-we can reactivate the process. Best wishes in managing this!). Warnings: GENERAL WARNINGS: Return or contact your physician immediately if your condition worsens or changes unexpectedly, if not improving as expected, or if other problems arise. Follow-up: Follow up with your doctor Wednesday. Understanding of the discharge instructions verbalized by patient. ADDITIONAL INFORMATION Depression Depression is one of the most common mental health problems today. It is not just a state of unhappiness or sadness. It is a true disease. The cause seems to be related to a decrease in chemicals that transmit signals in the brain. Having a family history of depression, alcoholism or suicide increases the risk. Chronic illness, chronic pain, migraine headaches and high emotional stress also increase the risk. Depression can cause many different symptoms, such as: -- Loss of appetite -- Over-eating -- Not being able to sleep -- Sleeping too much -- Tiredness not related to physical exertion -- Restlessness or irritability -- Slowness of movement or speech -- Feeling depressed or withdrawn -- Loss of interest in things you once enjoyed -- Difficulty in concentrating, poor memory, have trouble making decisions -- Thoughts of harming or killing oneself, or thoughts that life is not worth living -- Low self-esteem The best treatment for depression is a combination of medicine and psychotherapy. Antidepressant medicines can reduce suffering and can improve the ability to function during the depressed period. Therapy can offer emotional support and help you understand emotional factors that may be causing the depression. Home Care: 1) Be kind to yourself. Make it a point to do things that you enjoy (gardening, walking in nature, going to a movie, etc.). Reward yourself for small successes. 2) Take care of your physical body. Eat a balanced diet (low in saturated fat and high in fruits and vegetables). Establish an exercise plan at least 3 times a week for 30 minutes. Even mild-moderate exercise (like brisk walking) can make you feel better. 3) Avoid alcohol, which can make depression worse. Follow-Up with your doctor as advised. It is important to keep in contact with a health care provider until your symptoms begin to improve. Get Prompt Medical Attention if any of the following occur: -- Feeling extreme depression, fear, anxiety, or anger toward yourself or others -- Feeling out of control -- Feeling that you may try to harm yourself or another -- Hearing voices that others do not hear -- Seeing things that others do not see -- Cant sleep or eat for 3 days in a row You have been given the following additional information: Depression (Electronically signed by Shaina Schmidt A.R.N.P. 04/25/2016 16:49)
--- NOTE | 2016-04-25 17:15 | ED MAR SUMMARY ---
..... Medication Administration Record [facility] [address] [place], [place] [id number] Patient: SILVIA ESPARZA Visit ID: [id number] 41y, F Weight: 61.2 kg Height/Length: 61 in BMI: 25.5 ALLERGIES: Compazine, Gabapentin, morphine, Phenergan, Vancomycin, Vicodin
--- NOTE | 2016-04-25 17:15 | ED MED RECONCILIATION SUMMARY ---
Patient: SILVIA ESPARZA Medication Reconciliation Report [facility] VisitID: [id number] [address] [place] [address] 41y, F Registration Date/Time: 04/25/2016 Weight: 61.2 kg Height/Length: 61 in. BMI: 25.5 ALLERGIES: Compazine, Gabapentin, morphine, Phenergan, Vancomycin, Vicodin The patient's Home Medications are listed below: THE FOLLOWING MEDICATIONS NEED TO BE RECONCILED: HydrOXYzine HCl Oral 100 mg, daily Prazosin HCl Oral 2 mg, at bedtime Ranitidine HCl Oral 150 mg, daily Vraylar, pt states she was just started on this med The source(s) of the original Home Medication information: Not obtained. The following Medications were given to the patient in the Emergency Department: None. The following Medications were prescribed to the patient: None.
== END 2016-04-25 15:50 | disposition home or self-care (01) ==
LOC: ED SRH 14:01
DX: R45.851 Suicidal ideations (principal); F15.10 Other stimulant abuse, uncomplicated; F99 Mental disorder, not otherwise specified; Z79.899 Other long term (current) drug therapy; Z88.5 Allergy status to narcotic agent; Z88.8 Allergy status to other drugs, medicaments and biological substances; Z88.1 Allergy status to other antibiotic agents
CPT/HCPCS: 92760; 92761; 92762; 92763; 92764; 92765; 92766; 92767

== ENCOUNTER 2016-04-26 21:23 | Emergency (ER) | payer OTHER ==
--- NOTE | 2016-04-26 21:56 | ED NURSING NOTES ---
Clinical Report - Nurses [facility] [address] [place] [address] 04/26/2016 21:24 Patient: SILVIA ESPARZA TRIAGE Triage time 2130. Acuity: LEVEL 4. Chief Complaint: (Pt in c/o aggitation "I keep hearing voices and I want them to stop....my conselor was gone on Wednesday, and I have to wait until tomorrow"). --21:43 Erika Jackson R.N. 21:30 04/26/16. BP: 129/73. HR: 108. RR: 22. O2 saturation: 99%. Temp: 98.4 F. Pain level now: cannot qualify. Additional comments: ear pain. --21:43 Erika Jackson R.N. Weight: 61.2 kg stated. Height/Length: 61 inches Per Patient. BMI: 25.5. --21:40 Erika Jackson R.N. Medications HydrOXYzine HCl Oral 100 mg, daily. Prazosin HCl Oral 2 mg, at bedtime. Ranitidine HCl Oral 150 mg, daily. Vraylar (pt states she was just started on this med). --21:39 Erika Jackson R.N. Allergies Compazine. Gabapentin. morphine. Phenergan. Vancomycin. Vicodin. --21:39 Erika Jackson R.N. History Historian: patient. Arrived walking and unaccompanied. Primary physician (rinku). ( also c/o bilateral ear pain right worse than left). PAST MEDICAL HX: Last normal menstrual period- 1 week. SOCIAL HX: Former smoker (8 months ago). History of drug use: methamphetamines. (last used earlier today). No alcohol use. --21:43 Erika Jackson R.N. PROBLEMS: Suicidal Ideation. Suicide Attempt. Hematoma. Otitis Media. Dental Pain. Hypokalemia. Dizziness. Acute Otalgia. Thrombophlebitis. Abcess x 3. Anemia. Rectal Bleed. Abnormal Liver Function Test. Depression. Substance Abuse. Psychosis. Schizophrenia. Anxiety Reaction. --21:39 Erika Jackson R.N. ADDITIONAL SURGERIES: Ankle surgery. . Tonsillectomy. --21:39 Erika Jackson R.N. Interventions ID band on patient. To treatment room. --21:43 Erika Jackson R.N. PHYSICAL ASSESSMENT 21:30. Ambulatory to room. GENERAL / NEURO / PSYCH: Alert. Appears anxious. Speech within normal limits. Patient's mood/affect appears tearful. Patient appears unkempt. RESPIRATORY: Respirations not labored. CVS: Capillary refill less than 2 seconds. GI / : Abdomen soft. SKIN: Skin is warm and dry. --21:44 Erika Jackson R.N. NURSING PROGRESS NOTES 21:30. Head of bed elevated. Reassurance given. Patient identifiers checked. Call light placed in reach. Side rails up. Bed placed in lowest position. Patient ready for evaluation- chart flagged. --21:43 Erika Jackson R.N. DISPOSITION / DISCHARGE 22:15. Condition at departure: unchanged and stable. Discharge instructions provided and reviewed with the patient. Reviewed referrals (follow up at 8am tomorrow with psych counselor as directed yesterday). Patient verbalized understanding. Written instructions provided in German. The patient left the Emergency Department ambulatory. --22:20 Erika Jackson R.N. 22:15 04/26/16. BP: deferred. HR: deferred. RR: deferred. O2 saturation: deferred. Temp: deferred. Pain level now deferred. --22:20 Erika Jackson R.N. Locked/Released at 04/26/2016 22:21 by Erika Jackson R.N.
--- NOTE | 2016-04-26 21:56 | ED CLINICAL REPORT ---
Clinical Report - Physicians/Mid Levels [facility] [address] [place] [address] 04/26/2016 21:24 Patient: SILVIA ESPARZA Time Seen: 2134; upon arrival, initial patient contact, initial documentation, patient care assumed. Arrived- By private vehicle. Not in custody. Historian- patient. RETURN VISIT: recently seen in this ED by another ED physician. Seen now for the same problem as before. HISTORY OF PRESENT ILLNESS Chief Complaint: ANXIOUS and AGITATED, PARANOID and AUDITORY HALLUCINATIONS. This started months ago. The patient has experienced situational problems but not exhibited a behavior change and was not found wandering and is compliant with medication. Recent drug use. No recent alcohol consumption. The patient has had anxiety. Has been paranoid. No suicidal thoughts. She has had moderate auditory hallucinations. The symptoms are described as severe. No injury is present. pt back with same issues, c/o feeling agitated, paranoid that people are after her, hearing voices. Similar symptoms previously: Seen in the ED. Diagnosis: schizophrenia. Recent medical care: The patient was seen recently by a health care provider. REVIEW OF SYSTEMS No chest pain, abdominal pain, vomiting, diarrhea or fever. No difficulty breathing. c/o R ear pain. All systems otherwise negative, except as recorded above. PAST HISTORY See nurses notes. ( PROBLEMS: Suicidal Ideation. Suicide Attempt. Hematoma. Otitis Media. Dental Pain. Hypokalemia. Dizziness. Acute Otalgia. Thrombophlebitis. Abcess x 3. Anemia. Rectal Bleed. Abnormal Liver Function Test. Depression. Substance Abuse. Psychosis. Schizophrenia. Anxiety Reaction. --21:39 Erika Jackson, R.N. ADDITIONAL SURGERIES: Ankle surgery. . Tonsillectomy. --21:39 Erika Jackson, R.N.). SOCIAL HISTORY Never smoker. History of heavy drug use: methamphetamines. Recently used drugs today. Under influence in ED. No alcohol use. Has social support. Has place to stay. FAMILY HISTORY Negative. ADDITIONAL NOTES The nursing notes have been reviewed with agreement regarding the chief complaint, HPI, ROS, PMH and patient medications and allergies. PHYSICAL EXAM Vital Signs: 04/26/2016 21:30 BP: 129/73. HR: 108. RR: 22. O2 saturation: 99%. Temp: 98.4 F. Have been reviewed as abnormal and appear to be correct. Blood pressure normal. Tachycardic. Respiratory rate normal. Temperature normal. Oxygen saturation normal. Appearance: Alert. No acute distress. Appearance is normal. Anxious. Eyes: Pupils equal, round and reactive to light. Neck: Normal inspection. Neck supple. CVS: Normal heart rate and rhythm. Heart sounds normal. Respiratory: Breath sounds normal. Chest nontender. Abdomen: Soft and nontender. Back: No tenderness. Skin: Skin warm and dry. Normal skin color. Normal skin turgor. Extremities: Extremities exhibit normal ROM. No lower extremity edema. Psych / Neuro: Oriented X 3. Abnormal mood and affect. Speech normal. Cognition normal. Thought process and content normal. Insight and judgement not normal. She does not appear to understand hers illness but feel treatment is necessary and appears concerned about hers current condition. Cranial nerves normal (as tested). No cerebellar findings. No motor deficit. No sensory deficit. PROGRESS AND PROCEDURES Course of Care: 21:55 04/26/16. laila feng, #57 er visits, see report for full details pt is well known to me and er staff. Patient counseled in person regarding the patient's stable condition and diagnosis. 21:54. Differential Diagnosis: Other possible considerations: bipolar, anxiety, substance abuse, schizophrenia, aom, aoe. Above considerations are based on history and physical exam. Differential diagnosis was discussed with patient. Disposition: Discharged home in good and unchanged condition (21:54). Condition: good and stable. A medical screening exam was performed: at the time of evaluation the presenting medical condition was determined to not be of an emergent nature. CLINICAL IMPRESSION Chronic substance abuse- methamphetamines with intoxication, delirium, hallucinations and anxiety. Anxiety reaction. INSTRUCTIONS Warnings: GENERAL WARNINGS: Return or contact your physician immediately if your condition worsens or changes unexpectedly, if not improving as expected, or if other problems arise. Specifically return if problem worsens. Follow-up: Follow up with your doctor in about three days as needed. Call for an appointment. Summary of care provided to patient. Understanding of the discharge instructions verbalized by patient. (Electronically signed by Marcelle Urban A.R.N.P. 04/26/2016 22:16)
--- NOTE | 2016-04-26 21:56 | ED NURSING NOTES ---
Clinical Report - Nurses [facility] [address] [place] [address] 04/26/2016 21:24 Patient: SILVIA ESPARZA TRIAGE Triage time 2130. Acuity: LEVEL 4. Chief Complaint: (Pt in c/o aggitation "I keep hearing voices and I want them to stop....my conselor was gone on Wednesday, and I have to wait until tomorrow"). --21:43 Erika Jackson R.N. 21:30 04/26/16. BP: 129/73. HR: 108. RR: 22. O2 saturation: 99%. Temp: 98.4 F. Pain level now: cannot qualify. Additional comments: ear pain. --21:43 Erika Jackson R.N. Weight: 61.2 kg stated. Height/Length: 61 inches Per Patient. BMI: 25.5. --21:40 Erika Jackson R.N. Medications HydrOXYzine HCl Oral 100 mg, daily. Prazosin HCl Oral 2 mg, at bedtime. Ranitidine HCl Oral 150 mg, daily. Vraylar (pt states she was just started on this med). --21:39 Erika Jackson R.N. Allergies Compazine. Gabapentin. morphine. Phenergan. Vancomycin. Vicodin. --21:39 Erika Jackson R.N. History Historian: patient. Arrived walking and unaccompanied. Primary physician (rinku). ( also c/o bilateral ear pain right worse than left). PAST MEDICAL HX: Last normal menstrual period- 1 week. SOCIAL HX: Former smoker (8 months ago). History of drug use: methamphetamines. (last used earlier today). No alcohol use. --21:43 Erika Jackson R.N. PROBLEMS: Suicidal Ideation. Suicide Attempt. Hematoma. Otitis Media. Dental Pain. Hypokalemia. Dizziness. Acute Otalgia. Thrombophlebitis. Abcess x 3. Anemia. Rectal Bleed. Abnormal Liver Function Test. Depression. Substance Abuse. Psychosis. Schizophrenia. Anxiety Reaction. --21:39 Erika Jackson R.N. ADDITIONAL SURGERIES: Ankle surgery. . Tonsillectomy. --21:39 Erika Jackson R.N. Interventions ID band on patient. To treatment room. --21:43 Erika Jackson R.N. PHYSICAL ASSESSMENT 21:30. Ambulatory to room. GENERAL / NEURO / PSYCH: Alert. Appears anxious. Speech within normal limits. Patient's mood/affect appears tearful. Patient appears unkempt. RESPIRATORY: Respirations not labored. CVS: Capillary refill less than 2 seconds. GI / : Abdomen soft. SKIN: Skin is warm and dry. --21:44 Erika Jackson R.N. NURSING PROGRESS NOTES 21:30. Head of bed elevated. Reassurance given. Patient identifiers checked. Call light placed in reach. Side rails up. Bed placed in lowest position. Patient ready for evaluation- chart flagged. --21:43 Erika Jackson R.N. DISPOSITION / DISCHARGE 22:15. Condition at departure: unchanged and stable. Discharge instructions provided and reviewed with the patient. Reviewed referrals (follow up at 8am tomorrow with psych counselor as directed yesterday). Patient verbalized understanding. Written instructions provided in [place]. The patient left the Emergency Department ambulatory. --22:20 Erika Jackson R.N. 22:15 04/26/16. BP: deferred. HR: deferred. RR: deferred. O2 saturation: deferred. Temp: deferred. Pain level now deferred. --22:20 Erika Jackson R.N. Locked/Released at 04/26/2016 22:21 by Erika Jackson R.N.
--- NOTE | 2016-04-26 22:21 | ED DISCHARGE INSTRUCTIONS ---
Patient: SILVIA ESPARZA General Instructions [facility] VisitID: [id number] [place] [address] 41y, F Registration Date/Time: 04/26/2016 Chronic substance abuse- methamphetamines with intoxication, delirium, hallucinations and anxiety. Anxiety reaction. INSTRUCTIONS Warnings: GENERAL WARNINGS: Return or contact your physician immediately if your condition worsens or changes unexpectedly, if not improving as expected, or if other problems arise. Specifically return if problem worsens. Follow-up: Follow up with your doctor in about three days as needed. Call for an appointment. Summary of care provided to patient. Understanding of the discharge instructions verbalized by patient. ADDITIONAL INFORMATION Stress Reaction Anxiety is the feeling we all get when we think something bad might happen. It is a normal response to stress and usually causes only a mild reaction. When anxiety becomes more severe, emotions may interfere with daily life. In some cases, you may not even be aware of what it is youre anxious about! During an anxiety reaction, you may feel like you are helpless, nervous, depressed or irritable. Your body may show signs of anxiety in many ways. You may experience dry mouth, shakiness, dizziness, weakness, trouble breathing, chest pressure, headache, nausea, diarrhea, tiredness, inability to sleep or sexual problems. Home Care: 1) Try to locate the sources of stress in your life. They may not be obvious! These may include: -- Daily hassles of life which pile up (traffic jams, missed appointments, car troubles, etc.) -- Major life changes, both good (new baby, job promotion) and bad (loss of job, loss of loved one) -- Overload: feeling that you have too many responsibilities and can't take care of all of them at once -- Feeling helpless, feeling that your problems are beyond what youre able to solve 2) Notice how your body reacts to stress. Learn to listen to your body signals. This will help you take action before the stress becomes severe. 3) When you can, do something about the source of your stress. (Avoid hassles, limit the amount of change that happens in your life at one time and take a break when you feel overloaded). 4) Unfortunately, many stressful situations cannot be avoided. It is necessary to learn HOW TO MANAGE STRESS better. There are many proven methods that will reduce your anxiety. These include simple things like exercise, good nutrition and adequate rest. Also, there are certain techniques that are helpful: relaxation and breathing exercises, visualization, biofeedback and meditation. For more information about this, consult your doctor or go to a local bookstore and review the many books and tapes available on this subject. Follow Up If you feel that your anxiety is not responding to self-help measures, contact your doctor or make an appointment with a counselor. Get Prompt Medical Attention if any of the following occur: -- Your symptoms get worse -- Chest pain or trouble breathing -- Severe headache not relieved by rest and mild pain reliever -- Rapid or irregular heartbeat, fainting Drug Abuse Use and abuse of such drugs as marijuana, amphetamines (speed, crank), cocaine, heroin or prescription pain medicines (Vicodin, codeine), sedatives and sleeping pills (Valium, Klonopin), PCP, mescaline and LSD may lead to addiction or dependence. Once this occurs, you are at greater risk for any of the following: Craving for the drug and unable to stop using the drug even though you think you want to stop (psychological dependence) Drug withdrawal symptoms if you stop taking the drug (physical dependence) Loss of your job or your family Arrest, conviction and skilled nursing sentence for possession of an illegal substance or for driving under the influence of such a substance Accidental injuries to yourself or others while you are under the influence of the drug (in a car or at home). HIV infection (much greater risk if you use IV drugs) Other sexually transmitted diseases (herpes, chlamydia, gonorrhea and others) Severe and fatal infection of the heart valves (if you use IV drugs) Stroke, heart attack, hepatitis B or C, kidney failure from overdose Home Care: Admit you have a drug problem. Ask for help from your family and close friends. Seek professional help. This could be in the form of individual psychotherapy or counseling or an outpatient, inpatient, or residential drug treatment program. Join a self-help group for drug abuse. Avoid friends who abuse drugs themselves or tempt you to continue abusing drugs. Eat a balanced diet and begin a regular exercise program. Follow Up with your doctor or as advised by our staff. Contact one of the resources below for help. [facility] on Alcoholism and Drug Dependence www.ncadd.org 667-526-JSVL Narcotics Anonymous www.na.org 736-393-4125 National Alcohol and Substance Abuse Information Center (for referral to treatment programs) www.addictioncareDakwak.[employer] 887-214-5327 Get Prompt Medical Attention if any of the following occur: Agitation, anxiety, unable to sleep Unintended weight loss (more than 10 to 15 pounds over 3 months) Seizure Chest pain Fever of 100.4F (38C) or higher, or as directed by your healthcare provider Excess drowsiness or inability to be awakened Shortness of breath Slow breathing under 8 breaths per minute Cough with colored sputum Redness, swelling or tenderness at an injection site You have been given the following additional information: Anxiety Reaction Drug Abuse (Electronically signed by Marcelle Urban A.R.N.P. 04/26/2016 22:16)
--- NOTE | 2016-04-26 22:21 | ED MED RECONCILIATION SUMMARY ---
Patient: SILVIA ESPARZA Medication Reconciliation Report [facility] VisitID: [id number] [address] [place] [address] 41y, F Registration Date/Time: 04/26/2016 Weight: 61.2 kg Height/Length: 61 in. BMI: 25.5 ALLERGIES: Compazine, Gabapentin, morphine, Phenergan, Vancomycin, Vicodin The patient's Home Medications are listed below: THE FOLLOWING MEDICATIONS NEED TO BE RECONCILED: HydrOXYzine HCl Oral 100 mg, daily Prazosin HCl Oral 2 mg, at bedtime Ranitidine HCl Oral 150 mg, daily Vraylar, pt states she was just started on this med The source(s) of the original Home Medication information: Not obtained. The following Medications were given to the patient in the Emergency Department: None. The following Medications were prescribed to the patient: None.
--- NOTE | 2016-04-26 22:21 | ED MAR SUMMARY ---
..... Medication Administration Record [facility] [address] [place] [address] Patient: SILVIA ESPARZA Visit ID: [id number] 41y, F Weight: 61.2 kg Height/Length: 61 in BMI: 25.5 ALLERGIES: Compazine, Gabapentin, morphine, Phenergan, Vancomycin, Vicodin
--- NOTE | 2016-04-26 22:21 | ED MED RECONCILIATION SUMMARY ---
Patient: SILVIA ESPARZA Medication Reconciliation Report [facility] VisitID: [id number] [address] [place] [address] 41y, F Registration Date/Time: 04/26/2016 Weight: 61.2 kg Height/Length: 61 in. BMI: 25.5 ALLERGIES: Compazine, Gabapentin, morphine, Phenergan, Vancomycin, Vicodin The patient's Home Medications are listed below: THE FOLLOWING MEDICATIONS NEED TO BE RECONCILED: HydrOXYzine HCl Oral 100 mg, daily Prazosin HCl Oral 2 mg, at bedtime Ranitidine HCl Oral 150 mg, daily Vraylar, pt states she was just started on this med The source(s) of the original Home Medication information: Not obtained. The following Medications were given to the patient in the Emergency Department: None. The following Medications were prescribed to the patient: None.
--- NOTE | 2016-04-26 22:21 | ED DISCHARGE INSTRUCTIONS ---
Patient: SILVIA ESPARZA General Instructions [facility] VisitID: [id number] [place] [address] 41y, F Registration Date/Time: 04/26/2016 Chronic substance abuse- methamphetamines with intoxication, delirium, hallucinations and anxiety. Anxiety reaction. INSTRUCTIONS Warnings: GENERAL WARNINGS: Return or contact your physician immediately if your condition worsens or changes unexpectedly, if not improving as expected, or if other problems arise. Specifically return if problem worsens. Follow-up: Follow up with your doctor in about three days as needed. Call for an appointment. Summary of care provided to patient. Understanding of the discharge instructions verbalized by patient. ADDITIONAL INFORMATION Stress Reaction Anxiety is the feeling we all get when we think something bad might happen. It is a normal response to stress and usually causes only a mild reaction. When anxiety becomes more severe, emotions may interfere with daily life. In some cases, you may not even be aware of what it is youre anxious about! During an anxiety reaction, you may feel like you are helpless, nervous, depressed or irritable. Your body may show signs of anxiety in many ways. You may experience dry mouth, shakiness, dizziness, weakness, trouble breathing, chest pressure, headache, nausea, diarrhea, tiredness, inability to sleep or sexual problems. Home Care: 1) Try to locate the sources of stress in your life. They may not be obvious! These may include: -- Daily hassles of life which pile up (traffic jams, missed appointments, car troubles, etc.) -- Major life changes, both good (new baby, job promotion) and bad (loss of job, loss of loved one) -- Overload: feeling that you have too many responsibilities and can't take care of all of them at once -- Feeling helpless, feeling that your problems are beyond what youre able to solve 2) Notice how your body reacts to stress. Learn to listen to your body signals. This will help you take action before the stress becomes severe. 3) When you can, do something about the source of your stress. (Avoid hassles, limit the amount of change that happens in your life at one time and take a break when you feel overloaded). 4) Unfortunately, many stressful situations cannot be avoided. It is necessary to learn HOW TO MANAGE STRESS better. There are many proven methods that will reduce your anxiety. These include simple things like exercise, good nutrition and adequate rest. Also, there are certain techniques that are helpful: relaxation and breathing exercises, visualization, biofeedback and meditation. For more information about this, consult your doctor or go to a local bookstore and review the many books and tapes available on this subject. Follow Up If you feel that your anxiety is not responding to self-help measures, contact your doctor or make an appointment with a counselor. Get Prompt Medical Attention if any of the following occur: -- Your symptoms get worse -- Chest pain or trouble breathing -- Severe headache not relieved by rest and mild pain reliever -- Rapid or irregular heartbeat, fainting Drug Abuse Use and abuse of such drugs as marijuana, amphetamines (speed, crank), cocaine, heroin or prescription pain medicines (Vicodin, codeine), sedatives and sleeping pills (Valium, Klonopin), PCP, mescaline and LSD may lead to addiction or dependence. Once this occurs, you are at greater risk for any of the following: Craving for the drug and unable to stop using the drug even though you think you want to stop (psychological dependence) Drug withdrawal symptoms if you stop taking the drug (physical dependence) Loss of your job or your family Arrest, conviction and half-way sentence for possession of an illegal substance or for driving under the influence of such a substance Accidental injuries to yourself or others while you are under the influence of the drug (in a car or at home). HIV infection (much greater risk if you use IV drugs) Other sexually transmitted diseases (herpes, chlamydia, gonorrhea and others) Severe and fatal infection of the heart valves (if you use IV drugs) Stroke, heart attack, hepatitis B or C, kidney failure from overdose Home Care: Admit you have a drug problem. Ask for help from your family and close friends. Seek professional help. This could be in the form of individual psychotherapy or counseling or an outpatient, inpatient, or residential drug treatment program. Join a self-help group for drug abuse. Avoid friends who abuse drugs themselves or tempt you to continue abusing drugs. Eat a balanced diet and begin a regular exercise program. Follow Up with your doctor or as advised by our staff. Contact one of the resources below for help. [facility] on Alcoholism and Drug Dependence www.ncadd.org 589-385-EMHD Narcotics Anonymous www.na.org 807-468-9883 National Alcohol and Substance Abuse Information Center (for referral to treatment programs) www.addictioncareEndgame.[employer] 854-912-5256 Get Prompt Medical Attention if any of the following occur: Agitation, anxiety, unable to sleep Unintended weight loss (more than 10 to 15 pounds over 3 months) Seizure Chest pain Fever of 100.4F (38C) or higher, or as directed by your healthcare provider Excess drowsiness or inability to be awakened Shortness of breath Slow breathing under 8 breaths per minute Cough with colored sputum Redness, swelling or tenderness at an injection site You have been given the following additional information: Anxiety Reaction Drug Abuse (Electronically signed by Marcelle Urban A.R.N.P. 04/26/2016 22:16)
--- NOTE | 2016-04-26 22:21 | ED MAR SUMMARY ---
..... Medication Administration Record [facility] [address] [place] [address] Patient: SILVIA ESPARZA Visit ID: [id number] 41y, F Weight: 61.2 kg Height/Length: 61 in BMI: 25.5 ALLERGIES: Compazine, Gabapentin, morphine, Phenergan, Vancomycin, Vicodin
== END 2016-04-26 22:15 | disposition home or self-care (01) ==
LOC: ED SRH 21:23
DX: F15.121 Other stimulant abuse with intoxication delirium (principal); F41.1 Generalized anxiety disorder; F20.9 Schizophrenia, unspecified; F17.210 Nicotine dependence, cigarettes, uncomplicated; Z79.84 Long term (current) use of oral hypoglycemic drugs; Z79.01 Long term (current) use of anticoagulants; Z88.6 Allergy status to analgesic agent; Z88.8 Allergy status to other drugs, medicaments and biological substances

== ENCOUNTER 2016-05-26 15:18 | Emergency (ER) | payer OTHER ==
--- NOTE | 2016-05-27 02:29 | ED CLINICAL REPORT ---
Clinical Report - Physicians/Mid Levels [facility] [address] [place] [address] 05/26/2016 15:18 Patient: SILVIA ESPARZA Time Seen: 1522. Arrived- By ambulance. Historian- patient. Referred (self). HISTORY OF PRESENT ILLNESS Chief Complaint: AUDITORY HALLUCINATIONS. This started past several days. The patient has had anxiety. No delusions, suicidal thoughts or self-injury inflicted. She has had hallucinations (reports she sees people around her and they tell her the same things she is thinking. reports also having a TV in her head.). The symptoms are described as severe. No injury is present. Additional history - hx of schizophrenia. No med changes. Reports quiting drugs 3 days ago. Says she had a new living situation but feels safe at home. No new triggers or stressors known. Similar symptoms previously: Recent medical care: Not recently seen/assessed. REVIEW OF SYSTEMS No headache, dizziness, weakness, chest pain or palpitations. No abdominal pain, vomiting, diarrhea, numbness or fever. No sore throat, cough, difficulty breathing, urinary frequency or skin rash. No enlarged lymph nodes, joint pain or laceration. All systems otherwise negative, except as recorded above. PAST HISTORY See nurses notes. Problems: Suicidal Ideation. Suicide Attempt. Dental Pain. Thrombophlebitis. Anemia. Rectal Bleed. Allergic Reaction. Depression. Mental Illness. LNMP - Last Normal Menstrual Period. Anxiety Reaction. Schizophrenia. Lifestyle / Substance Problems. Additional Surgeries: Ankle surgery. . Tonsillectomy. Medications: Paliperidone ER Oral. HydrOXYzine Pamoate Oral. Ranitidine Acid Web Production Assistant Oral. Prazosin HCl Oral. Allergies: Compazine. Gabapentin. morphine. Phenergan. Vancomycin. Vicodin. SOCIAL HISTORY Smoker- current status unknown. History of drug use quit 3 days ago. Is a recovering addict. No alcohol use. 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 Has place to stay. ADDITIONAL NOTES The nursing notes have been reviewed. PHYSICAL EXAM Vital Signs: 05/26/2016 15:21 BP: 112/91. HR: 120. RR: 18. O2 saturation: 97%. Temp: 98.6 F. Oxygen saturation normal. Appearance: Alert. No acute distress. Appearance is normal. Anxious. Eyes: Pupils equal, round and reactive to light. Neck: Normal inspection. Neck supple. CVS: Normal heart rate and rhythm. Heart sounds normal. Respiratory: Breath sounds normal. Chest nontender. Abdomen: Soft and nontender. Skin: Skin warm and dry. Normal skin color. Normal skin turgor. Extremities: Extremities exhibit normal ROM. No lower extremity edema. Psych / Neuro: Oriented X 3. Mood and affect normal. (elevated mood. affect is congruent.). Speech normal and is pressured. Thought process normal. Appears to have auditory and visual hallucinations. Denies suicidal thoughts. Patient does not express homicidal thoughts. Insight and judgement normal. Cranial nerves normal (as tested). No cerebellar findings. No motor deficit. No sensory deficit. Reflexes normal. LABS, X-RAYS, AND EKG Laboratory Tests: UA-Culture if indicated: (SANTA: 05/26/2016 15:50) ( [facility] 05/26/2016 16:30) Final results Test Result Flag Units (Reference) URINE COLOR YELLOW URINE APPEARANCE CLEAR URINE GLUCOSE NEGATIVE (NEGATIVE) URINE BILIRUBIN NEGATIVE (NEGATIVE) URINE KETONE 2+ (NEGATIVE) URINE SPECIFIC GRAVITY 1.015 (1.010-1.030) URINE PH 5.5 (5.0-8.0) URINE PROTEIN NEGATIVE (NEGATIVE) URINE UROBILINOGEN 0.2 EU/dL (0.2-1.0) URINE NITRITE NEGATIVE (NEGATIVE) URINE BLOOD NEGATIVE (NEGATIVE) URINE LEUK ESTERASE NEGATIVE (NEGATIVE) URINE RBC 1-3 rbc/hpf (0-1) URINE WBC 1-3 wbc/hpf (0-1) URINE EPITHELIAL CELLS 3-5 EPI/hpf (0-5) URINE BACTERIA NONE SEEN (NONE SEEN) URINE COMMENT CULT NOT INDICATED URINE CULTURES ARE SET-UP BASED ON THE FOLLOWING CRITERIA:POSITIVE NITRITEPOSITIVE LEUKOCYTE ESTERASEGREATER THAN 10 WHITE BLOOD CELLSMODERATE (2+) OR GREATER BACTERIA Urine: (SANTA: 05/26/2016 15:50) ( [facility] 05/26/2016 16:19) Final results Test Result Flag Units (Reference) URINE NEGATIVE CBC w Diff: (SANTA: 05/26/2016 15:50) ( [facility] 05/26/2016 18:04) Final results Test Result Flag Units (Reference) WHITE BLOOD COUNT 6.1 K/uL (4.5-11.5) RED BLOOD COUNT 5.31 H M/uL (4.00-5.20) HEMOGLOBIN 10.7 L gm/dL (12.0-16.0) HEMATOCRIT 35.0 L % (36.0-46.0) MEAN CELL VOLUME 66 L fL (80-100) MEAN CORPUSCULAR HGB 20 L pg (26-34) MEAN CORPUSCULAR HGB CONC 31 g/dL (31-37) RED CELL DISTRIBUTION WIDTH 20.7 H % (11.6-14.8) PLATELET COUNT 474 H K/uL (150-400) NEUTROPHIL % 53.5 % (50-75) LYMPH % 32.2 % (25-40) MONO % 11.0 % (3-14) EOSINOPHIL % 2.6 % (0-4) BASOPHIL % 0.7 % (0-2) RBC MORPHOLOGY 3+ MICROCYTOSIS~~3+ HYPOCHROMIA PT with INR: (SANTA: 05/26/2016 15:50) ( [facility] 05/26/2016 16:16) Final results Test Result Flag Units (Reference) INR 0.9 (0.8-1.2) Low Intensity Therapy: INR 1.5-2.0 PT range 18.5-23.1Mod.Intensity Therapy: INR 2.0-3.0 PT range 23.1-31.5High Intensity Therapy: INR 2.5-3.5 PT range 27.4-35.5High Intensity Therapy 2: INR 3.0-4.0 PT range 31.5-39.3 Urine Drug Screen: (SANTA: 05/26/2016 15:50) ( [facility] 05/26/2016 16:26) Final results Test Result Flag Units (Reference) AMPHETAMINE/METHAMPHETAMINE POSITIVE H (NEGATIVE) BARBITURATE NEGATIVE (NEGATIVE) BENZODIAZEPINE NEGATIVE (NEGATIVE) CANNABINOID NEGATIVE (NEGATIVE) COCAINE NEGATIVE (NEGATIVE) ECSTASY POSITIVE H (NEGATIVE) METHADONE NEGATIVE (NEGATIVE) OPIATE NEGATIVE (NEGATIVE) The urine drug screen is a qualitative screening test fordrug overdose and abuse. All screen results should beconsidered as presumptive.Drugs screened for are as follows:BenzodiazepinesCocaineAmphetamines/MetamphetaminesTHC (Tetrahydrocannabinol)OpiatesBarbituratesEcstasyMethadonePositive results are unconfirmed. For confirmation, notifythe lab for the specimen to be sent to the reference lab.All confirmations must be performed by a differentmethodology.The ingestion of natural herbal and plant productscontaining Ephedra/Ephedra metabolites can produce in urineone or more substances capable of cross reacting withamphetamine/methamphetamine immunoassays. These testsprovide a preliminary result only. A more specificalternative chemical method must be used to obtain aconfirmed analytical result. Salicylate Level: (SANTA: 05/26/2016 15:50) ( MsgRcvd 05/26/2016 16:27) Final results Test Result Flag Units (Reference) SALICYLATE <2.8 L mg/dL (2.8-20) CMP: (SANTA: 05/26/2016 15:50) ( MsgRcvd 05/26/2016 16:35) Final results Test Result Flag Units (Reference) GLUCOSE 85 mg/dL (70-110) BUN 8 mg/dL (7-18) CREATININE 0.7 mg/dL (0.6-1.3) Estimated GFR >60 mL/min Estimated GFR- >60 mL/min Note: Persistent reduction over 3 months in eGFR<60 mL/min/1.73 m2 defines CKD. Patients with eGFR values>=60 mL/min/1.73 m2 may also have CKD if evidence ofpersistent proteinuria. Additional information may be foundat www.kidney.org. SODIUM 141 mmol/L (136-145) POTASSIUM 3.8 mmol/L (3.5-5.1) CHLORIDE 104 mmol/L (98-107) CARBON DIOXIDE 25 mmol/L (21-32) CALCIUM 9.3 mg/dL (8.5-10.1) TOTAL PROTEIN 7.8 g/dL (6.4-8.2) ALBUMIN 4.0 g/dL (3.3-5.0) BILIRUBIN, TOTAL 0.4 mg/dL (0.0-1.0) ALKALINE PHOSPHATASE 84 U/L (46-116) AST (SGOT) 19 U/L (15-37) ALT (SGPT) 20 U/L (12-78) ETHYL ALCOHOL <3 L mg/dL (3-10) ACETAMINOPHEN < 2.0 L ug/mL (10-30) . Pulse Oximetry: 05/26/2016 15:21 O2 saturation: 97%. (FIO2 - room air). Interpretation: normal. PROGRESS AND PROCEDURES Course of Care: The patient is a +41-year-old female presented for evaluation of acute psychosis. Patient with unknown particular trigger for the psychotic event. Patientis not a danger to other people. No homicidal ideation. Patient isn't psychotic however and will need evaluation bythe crisis team. Patient is agreeable to the treatment plan. Laboratorieshave been ordered. Patient is medically Cleared for psychiatric evaluation. patient will be signed out to the oncoming physician at the change of shift. This patient was signed out to me by Dr. Hubbard pending evaluation by PAT team. Patient was evaluated by them after being observed in the emergency department and she was cleared for outpatient management. Patient was agreeable to this plan. Patient counseled in person regarding the patient's stable condition, test results, diagnosis and need for follow-up. Concerns were addressed. Old medical records reviewed. Disposition: Discharged. Condition: stable and improved. CLINICAL IMPRESSION Adjustment disorder with anxiety. Acute psychosis with hallucinations, (acute). Substance abuse- methamphetamines. Anxiety reaction. INSTRUCTIONS (You have refused the inpatient options that are available to you tonight for mental health care. As such, we will have you follow up with your mental health provider as an outpatient.). Warnings: GENERAL WARNINGS: Return or contact your physician immediately if your condition worsens or changes unexpectedly, if not improving as expected, or if other problems arise. Your Current Medications: CONTINUE TAKING THE FOLLOWING MEDICATIONS: HydrOXYzine Pamoate Oral. Paliperidone ER Oral. Prazosin HCl Oral. Ranitidine Acid Web Production Assistant Oral. Follow-up: Follow up with your doctor. Call for the next available appointment. Understanding of the discharge instructions verbalized by patient. (Electronically signed by Meli Thomas MD 06/05/2016 4:57)
--- NOTE | 2016-05-27 02:29 | ED ORDER SUMMARY ---
..... Patient: SILVIA ESPARZA OrderSheet [facility] VisitID: [id number] [place] [address] 41y, F Registration Date/Time: 05/26/2016 ORDER SHEET Weight: 63.5 kg (stated) Allergies: Compazine, Gabapentin, morphine, Phenergan, Vancomycin, Vicodin GENERAL ORDERS: CBC w Diff Urgent (15:05/26/2016 Champ David) (Ack 15:36 VAoerner) (15:53 KHoerner) CMP Urgent (:05/26/2016 Champ David) (Ack 15:36 Adriannerner) (15:53 KHoerner) UA-Culture if indicated Urgent (:05/26/2016 Champ David) (Ack 15:36 Kaciener) (15:53 KHoerner) PT with INR Urgent (15:05/26/2016 Champ David) (Ack 15:36 VAoerner) (15:53 KHoerner) Urine Drug Screen Urgent (15:05/26/2016 Champ David) (Ack 15:36 Adriannerner) (15:53 KHoerner) Urine Urgent (15:05/26/2016 Champ David) (Ack 15:36 Adriannerner) (15:53 KHoerner) Ethyl Alcohol Urgent (15:05/26/2016 Champ David) (Ack 15:36 Kaciener) (15:53 KHoerner) Salicylate Level Urgent (15:05/26/2016 Champ David) (Ack 15:36 Kaciener) (15:53 KHoerner) Acetaminophen Level Urgent (15:05/26/2016 Champ David) (Ack 15:36 Kaciener) (15:53 KHoerner) Breathalyzer (15:54 05/26/2016 Adriannerner verbal order read back to Champ David) (Ack 15:55 Kaciener) (16:01 KHoerner) MEDICATION ORDERS: HydrOXYzine PO 50 mg (NOW) (15:33 05/26/2016 Champ David) (16:31 Alyssa R.N.) Ativan PO 1 mg (HIGH ALERT MEDICATION, NOW) (02:26 05/27/2016 Trish CAMPBELL) (Ack 2:42 DDavis R.N.) (2:51 DDavis R.N.) IV FLUIDS: ORDER SHEET NOTES: [Electronically signed by Mario Cedillo R.N. (03:27 05/27/2016)] [Electronically signed by Meli Thomas MD (04:57 06/05/2016)] [Electronically locked/signed by Mario Cedillo R.N. (03:27 05/27/2016)]
--- NOTE | 2016-05-27 02:29 | ED ORDER SUMMARY ---
..... Patient: SILVIA ESPARZA OrderSheet [facility] VisitID: [id number] [place] [address] 41y, F Registration Date/Time: 05/26/2016 ORDER SHEET Weight: 63.5 kg (stated) Allergies: Compazine, Gabapentin, morphine, Phenergan, Vancomycin, Vicodin GENERAL ORDERS: CBC w Diff Urgent (15:05/26/2016 Champ David) (Ack 15:36 VAoerner) (15:53 KHoerner) CMP Urgent (:05/26/2016 Champ David) (Ack 15:36 Adriannerner) (15:53 KHoerner) UA-Culture if indicated Urgent (:05/26/2016 Champ David) (Ack 15:36 Kaciener) (15:53 KHoerner) PT with INR Urgent (15:05/26/2016 Champ David) (Ack 15:36 VAoerner) (15:53 KHoerner) Urine Drug Screen Urgent (15:05/26/2016 Champ David) (Ack 15:36 Adriannerner) (15:53 KHoerner) Urine Urgent (15:05/26/2016 Champ David) (Ack 15:36 Adriannerner) (15:53 KHoerner) Ethyl Alcohol Urgent (15:05/26/2016 Champ David) (Ack 15:36 Kaciener) (15:53 KHoerner) Salicylate Level Urgent (15:05/26/2016 Champ David) (Ack 15:36 Kaciener) (15:53 KHoerner) Acetaminophen Level Urgent (15:05/26/2016 Champ David) (Ack 15:36 Kaciener) (15:53 KHoerner) Breathalyzer (15:54 05/26/2016 Adriannerner verbal order read back to Champ David) (Ack 15:55 Kaciener) (16:01 KHoerner) MEDICATION ORDERS: HydrOXYzine PO 50 mg (NOW) (15:33 05/26/2016 Champ David) (16:31 Alyssa R.N.) Ativan PO 1 mg (HIGH ALERT MEDICATION, NOW) (02:26 05/27/2016 Trish CAMPBELL) (Ack 2:42 DDavis R.N.) (2:51 DDavis R.N.) IV FLUIDS: ORDER SHEET NOTES: [Electronically signed by Mario Cedillo R.N. (03:27 05/27/2016)] [Electronically signed by Meli Thomas MD (04:57 06/05/2016)] [Electronically locked/signed by Mario Cedillo R.N. (03:27 05/27/2016)]
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
--- NOTE | 2016-06-05 04:57 | ED DISCHARGE INSTRUCTIONS ---
Patient: SILVIA ESPARZA General Instructions [facility] VisitID: [id number] [place] [address] 41y, F Registration Date/Time: 05/26/2016 Adjustment disorder with anxiety. Acute psychosis with hallucinations, (acute). Substance abuse- methamphetamines. Anxiety reaction. INSTRUCTIONS (You have refused the inpatient options that are available to you tonight for mental health care. As such, we will have you follow up with your mental health provider as an outpatient.). Warnings: GENERAL WARNINGS: Return or contact your physician immediately if your condition worsens or changes unexpectedly, if not improving as expected, or if other problems arise. Your Current Medications: CONTINUE TAKING THE FOLLOWING MEDICATIONS: HydrOXYzine Pamoate Oral. Paliperidone ER Oral. Prazosin HCl Oral. Ranitidine Acid Final Touch Up Painter Oral. Follow-up: Follow up with your doctor. Call for the next available appointment. Understanding of the discharge instructions verbalized by patient. ADDITIONAL INFORMATION Psychosis Psychosis is a mental health problem. It causes a person to be out of touch with reality and affects a persons daily functioning. There are different kinds of psychosis: Drug-induced (due to alcohol, methamphetamine, cocaine, LSD, PCP and others) Bipolar disorder (formerly called Manic-Depression) Depression Schizophrenia Dementia Symptoms of psychosis can include: Hearing voices that others do not hear Seeing things that others do not see Racing thoughts Lack of energy Feeling extremely fearful Treatment for psychosis depends on the cause. Medicine, with or without psychotherapy, is often used. Home Care: Be sure to take your medicine as directed even if you think you don't need it. Talk with your family about your feelings and thoughts. Follow Up with your counselor, therapist or psychiatrist as advised by our staff. To learn more about this illness and available resources, contact your local mental health organization. National [place] on Mental Illness: www.tacos.org Get Prompt Medical Attention if any of the following occur: Feeling like you want to harm yourself or another Feeling extremely depressed Feeling out of control or being controlled by others Unable to care for yourself Adjustment Disorder An adjustment disorder is a condition that results from having a hard time coping with the normal stresses of life. You may feel you have too much to do and cant get it all done. These feelings may be triggered by divorce, job loss, someone you know dying, or by a positive event like getting a new job or getting . These feelings may interfere with your relationships at home and at work. With this condition, it is common to feel sad, guilty, hopeless and restless. These feelings may continue for weeks or months. It can be helpful to identify what is causing the additional stress and takes steps to get extra support. If new stressful events do not occur, it is likely that you will start feeling better within six months. Home Care: If you have been given a prescription for medicine, take it as directed. It helps to talk about your feelings and thoughts with family or friends that understand and support you. Follow Up with your doctor or therapist as advised by our staff. Let them know if this condition lasts more than six months without sign of improvement. For more information, contact the National [place] on Mental Illness at 267-380-3731 or visit www.tacos.org. Get Prompt Medical Attention if any of the following occur: Worsening depression or anxiety Feeling out of control Thoughts of harming yourself or another Being unable to care for yourself Drug Abuse Use and abuse of such drugs as marijuana, amphetamines (speed, crank), cocaine, heroin or prescription pain medicines (Vicodin, codeine), sedatives and sleeping pills (Valium, Klonopin), PCP, mescaline and LSD may lead to addiction or dependence. Once this occurs, you are at greater risk for any of the following: Craving for the drug and unable to stop using the drug even though you think you want to stop (psychological dependence) Drug withdrawal symptoms if you stop taking the drug (physical dependence) Loss of your job or your family Arrest, conviction and longterm sentence for possession of an illegal substance or for driving under the influence of such a substance Accidental injuries to yourself or others while you are under the influence of the drug (in a car or at home). HIV infection (much greater risk if you use IV drugs) Other sexually transmitted diseases (herpes, chlamydia, gonorrhea and others) Severe and fatal infection of the heart valves (if you use IV drugs) Stroke, heart attack, hepatitis B or C, kidney failure from overdose Home Care: Admit you have a drug problem. Ask for help from your family and close friends. Seek professional help. This could be in the form of individual psychotherapy or counseling or an outpatient, inpatient, or residential drug treatment program. Join a self-help group for drug abuse. Avoid friends who abuse drugs themselves or tempt you to continue abusing drugs. Eat a balanced diet and begin a regular exercise program. Follow Up with your doctor or as advised by our staff. Contact one of the resources below for help. National [place] on Alcoholism and Drug Dependence www.ncadd.org 701-801-HHPE Narcotics Anonymous www.na.org 904-987-1929 National Alcohol and Substance Abuse Information Center (for referral to treatment programs) www.addictioncarefruux.Accuradio 759-549-1897 Get Prompt Medical Attention if any of the following occur: Agitation, anxiety, unable to sleep Unintended weight loss (more than 10 to 15 pounds over 3 months) Seizure Chest pain Fever of 100.4F (38C) or higher, or as directed by your healthcare provider Excess drowsiness or inability to be awakened Shortness of breath Slow breathing under 8 breaths per minute Cough with colored sputum Redness, swelling or tenderness at an injection site You have been given the following additional information: Psychosis Adjustment Disorder Drug Abuse (Electronically signed by Meli Thomas MD 06/05/2016 4:57)
--- NOTE | 2016-06-05 04:57 | ED DISCHARGE INSTRUCTIONS ---
Patient: SILVIA ESPARZA General Instructions [facility] VisitID: [id number] [place] [address] 41y, F Registration Date/Time: 05/26/2016 Adjustment disorder with anxiety. Acute psychosis with hallucinations, (acute). Substance abuse- methamphetamines. Anxiety reaction. INSTRUCTIONS (You have refused the inpatient options that are available to you tonight for mental health care. As such, we will have you follow up with your mental health provider as an outpatient.). Warnings: GENERAL WARNINGS: Return or contact your physician immediately if your condition worsens or changes unexpectedly, if not improving as expected, or if other problems arise. Your Current Medications: CONTINUE TAKING THE FOLLOWING MEDICATIONS: HydrOXYzine Pamoate Oral. Paliperidone ER Oral. Prazosin HCl Oral. Ranitidine Acid Parts Sales Advisor Oral. Follow-up: Follow up with your doctor. Call for the next available appointment. Understanding of the discharge instructions verbalized by patient. ADDITIONAL INFORMATION Psychosis Psychosis is a mental health problem. It causes a person to be out of touch with reality and affects a persons daily functioning. There are different kinds of psychosis: Drug-induced (due to alcohol, methamphetamine, cocaine, LSD, PCP and others) Bipolar disorder (formerly called Manic-Depression) Depression Schizophrenia Dementia Symptoms of psychosis can include: Hearing voices that others do not hear Seeing things that others do not see Racing thoughts Lack of energy Feeling extremely fearful Treatment for psychosis depends on the cause. Medicine, with or without psychotherapy, is often used. Home Care: Be sure to take your medicine as directed even if you think you don't need it. Talk with your family about your feelings and thoughts. Follow Up with your counselor, therapist or psychiatrist as advised by our staff. To learn more about this illness and available resources, contact your local mental health organization. National [place] on Mental Illness: www.tacos.org Get Prompt Medical Attention if any of the following occur: Feeling like you want to harm yourself or another Feeling extremely depressed Feeling out of control or being controlled by others Unable to care for yourself Adjustment Disorder An adjustment disorder is a condition that results from having a hard time coping with the normal stresses of life. You may feel you have too much to do and cant get it all done. These feelings may be triggered by divorce, job loss, someone you know dying, or by a positive event like getting a new job or getting . These feelings may interfere with your relationships at home and at work. With this condition, it is common to feel sad, guilty, hopeless and restless. These feelings may continue for weeks or months. It can be helpful to identify what is causing the additional stress and takes steps to get extra support. If new stressful events do not occur, it is likely that you will start feeling better within six months. Home Care: If you have been given a prescription for medicine, take it as directed. It helps to talk about your feelings and thoughts with family or friends that understand and support you. Follow Up with your doctor or therapist as advised by our staff. Let them know if this condition lasts more than six months without sign of improvement. For more information, contact the National [place] on Mental Illness at 619-691-5269 or visit www.tacos.org. Get Prompt Medical Attention if any of the following occur: Worsening depression or anxiety Feeling out of control Thoughts of harming yourself or another Being unable to care for yourself Drug Abuse Use and abuse of such drugs as marijuana, amphetamines (speed, crank), cocaine, heroin or prescription pain medicines (Vicodin, codeine), sedatives and sleeping pills (Valium, Klonopin), PCP, mescaline and LSD may lead to addiction or dependence. Once this occurs, you are at greater risk for any of the following: Craving for the drug and unable to stop using the drug even though you think you want to stop (psychological dependence) Drug withdrawal symptoms if you stop taking the drug (physical dependence) Loss of your job or your family Arrest, conviction and correction sentence for possession of an illegal substance or for driving under the influence of such a substance Accidental injuries to yourself or others while you are under the influence of the drug (in a car or at home). HIV infection (much greater risk if you use IV drugs) Other sexually transmitted diseases (herpes, chlamydia, gonorrhea and others) Severe and fatal infection of the heart valves (if you use IV drugs) Stroke, heart attack, hepatitis B or C, kidney failure from overdose Home Care: Admit you have a drug problem. Ask for help from your family and close friends. Seek professional help. This could be in the form of individual psychotherapy or counseling or an outpatient, inpatient, or residential drug treatment program. Join a self-help group for drug abuse. Avoid friends who abuse drugs themselves or tempt you to continue abusing drugs. Eat a balanced diet and begin a regular exercise program. Follow Up with your doctor or as advised by our staff. Contact one of the resources below for help. National [place] on Alcoholism and Drug Dependence www.ncadd.org 655-637-MDHW Narcotics Anonymous www.na.org 653-521-5318 National Alcohol and Substance Abuse Information Center (for referral to treatment programs) www.addictioncareFanLib.WalkHub 745-976-4875 Get Prompt Medical Attention if any of the following occur: Agitation, anxiety, unable to sleep Unintended weight loss (more than 10 to 15 pounds over 3 months) Seizure Chest pain Fever of 100.4F (38C) or higher, or as directed by your healthcare provider Excess drowsiness or inability to be awakened Shortness of breath Slow breathing under 8 breaths per minute Cough with colored sputum Redness, swelling or tenderness at an injection site You have been given the following additional information: Psychosis Adjustment Disorder Drug Abuse (Electronically signed by Meli Thomas MD 06/05/2016 4:57)
--- NOTE | 2016-06-05 04:57 | ED MAR SUMMARY ---
..... Medication Administration Record [facility] [address] [place] [address] Patient: SILVIA ESPARZA Visit ID: [id number] 41y, F Weight: 63.5 kg Height/Length: 61 in BMI: 26.5 ALLERGIES: Compazine, Gabapentin, morphine, Phenergan, Vancomycin, Vicodin Given 16:16 05/26/2016 Anastasiya Isaac R.N. Medication Administered: HYDROXYZINE [PO] (HYDROXYZINE HCL), Dose: 50 mg Capsules PO. Medication Ordered: HydrOXYzine PO 50 mg (NOW). Given 02:51 05/27/2016 Mario Cedillo RArian Medication Administered: ATIVAN [PO] (LORAZEPAM), Dose: 1 mg Tablets PO. Medication Ordered: Ativan PO 1 mg (HIGH ALERT MEDICATION, NOW).
--- NOTE | 2016-06-05 04:57 | ED MED RECONCILIATION SUMMARY ---
Patient: SILVIA ESPARZA Medication Reconciliation Report [facility] VisitID: [id number] [address] [place] [address] 41y, F Registration Date/Time: 05/26/2016 Weight: 63.5 kg Height/Length: 61 in. BMI: 26.5 ALLERGIES: Compazine, Gabapentin, morphine, Phenergan, Vancomycin, Vicodin The patient's Home Medications are listed below: CONTINUE TAKING THE FOLLOWING MEDICATIONS: HydrOXYzine Pamoate Oral Paliperidone ER Oral Prazosin HCl Oral Ranitidine Acid Supervisor Estimator And Drafter Oral The source(s) of the original Home Medication information: Not obtained. The following Medications were given to the patient in the Emergency Department: Hydroxyzine [PO] PO 50 mg, administered: 05/26/2016 4:16:00 PM Ativan [PO] PO 1 mg, administered: 05/27/2016 2:51:00 AM The following Medications were prescribed to the patient: None.
--- NOTE | 2016-06-05 04:57 | ED MAR SUMMARY ---
..... Medication Administration Record [facility] [address] [place] [address] Patient: SILVIA ESPARZA Visit ID: [id number] 41y, F Weight: 63.5 kg Height/Length: 61 in BMI: 26.5 ALLERGIES: Compazine, Gabapentin, morphine, Phenergan, Vancomycin, Vicodin Given 16:16 05/26/2016 Anastasiya Isaac R.N. Medication Administered: HYDROXYZINE [PO] (HYDROXYZINE HCL), Dose: 50 mg Capsules PO. Medication Ordered: HydrOXYzine PO 50 mg (NOW). Given 02:51 05/27/2016 Mario Cedillo RArian Medication Administered: ATIVAN [PO] (LORAZEPAM), Dose: 1 mg Tablets PO. Medication Ordered: Ativan PO 1 mg (HIGH ALERT MEDICATION, NOW).
--- NOTE | 2016-06-05 04:57 | ED MED RECONCILIATION SUMMARY ---
Patient: SILVIA ESPARZA Medication Reconciliation Report [facility] VisitID: [id number] [address] [place] [address] 41y, F Registration Date/Time: 05/26/2016 Weight: 63.5 kg Height/Length: 61 in. BMI: 26.5 ALLERGIES: Compazine, Gabapentin, morphine, Phenergan, Vancomycin, Vicodin The patient's Home Medications are listed below: CONTINUE TAKING THE FOLLOWING MEDICATIONS: HydrOXYzine Pamoate Oral Paliperidone ER Oral Prazosin HCl Oral Ranitidine Acid Sales Inspector Oral The source(s) of the original Home Medication information: Not obtained. The following Medications were given to the patient in the Emergency Department: Hydroxyzine [PO] PO 50 mg, administered: 05/26/2016 4:16:00 PM Ativan [PO] PO 1 mg, administered: 05/27/2016 2:51:00 AM The following Medications were prescribed to the patient: None.
== END 2016-05-27 03:20 | disposition home or self-care (01) ==
LOC: ED SRH 15:18
DX: F43.22 Adjustment disorder with anxiety (principal); F23 Brief psychotic disorder; R44.0 Auditory hallucinations; F15.10 Other stimulant abuse, uncomplicated; F20.9 Schizophrenia, unspecified; Z79.899 Other long term (current) drug therapy; Z88.5 Allergy status to narcotic agent; Z88.8 Allergy status to other drugs, medicaments and biological substances; Z88.1 Allergy status to other antibiotic agents
CPT/HCPCS: 90004; 90100; 92010; 92760; 92761; 92762; 92763; 92764; 92765; 92766; 92767; 92780; 93070; 94060; 95059; 97000

== ENCOUNTER 2016-06-02 17:41 | Emergency (ER) | payer OTHER ==
--- NOTE | 2016-06-02 18:19 | ED CLINICAL REPORT ---
Clinical Report - Physicians/Mid Levels [facility] [address] [place] [address] 06/02/2016 17:42 Patient: SILVIA ESPARZA Time Seen: 18:12; initial patient contact, initial documentation, patient care assumed. Arrived- By ambulance. Not in custody. Historian- patient. HISTORY OF PRESENT ILLNESS Chief Complaint: ANXIOUS and AGITATED and AGGRESSIVE. This started just prior to arrival. The patient has experienced situational problems but not exhibited a behavior change and was not found wandering. (pt stated she called 911 after doing dose of meth, having anxiety attack and wants admitted for anxiety). She is non-compliant with medication. Recent drug use. No recent alcohol consumption. Has been eating or sleeping or not been depressed. She has had anxiety. No anger, unusual behavior, paranoia, delusions or suicidal thoughts. No self-injury inflicted or hallucinations. The symptoms are described as severe. No injury is present. Similar symptoms previously: Recent medical care: Not recently seen/assessed. REVIEW OF SYSTEMS All systems otherwise negative, except as recorded above. PAST HISTORY See nurses notes. ( PAST HISTORY See nurses notes. ( PROBLEMS: Suicidal Ideation. Suicide Attempt. Hematoma. Otitis Media. Dental Pain. Hypokalemia. Dizziness. Acute Otalgia. Thrombophlebitis. Abcess x 3. Anemia. Rectal Bleed. Abnormal Liver Function Test. Depression. Substance Abuse. Psychosis. Schizophrenia. Anxiety Reaction. --21:39 Erika Jackson R.N. ADDITIONAL SURGERIES: Ankle surgery. . Tonsillectomy. --21:39 Erika Jackson R.N.).). SOCIAL HISTORY Never smoker. History of heavy drug use: methamphetamines. No alcohol use. Has social support. Has place to stay. FAMILY HISTORY Negative. ADDITIONAL NOTES The nursing notes have been reviewed with agreement regarding the chief complaint, HPI, ROS, PMH and patient medications and allergies. PHYSICAL EXAM Vital Signs: 06/02/2016 17:44 BP: 118/69. HR: 99. RR: 18. O2 saturation: 100%. Temp: 98.7 F. Pain level now: 0/10. Have been reviewed as normal and appear to be correct. Appearance: Alert. Appearance is abnormal. No acute distress. Is disheveled and has poor hygiene. Patient is uncooperative. Anxious. (pt yelling from moment she came in, cussing, and demanding we admit her for anxiety). Eyes: Pupils equal, round and reactive to light. Neck: Normal inspection. Neck supple. CVS: Normal heart rate and rhythm. Heart sounds normal. Respiratory: Breath sounds normal. Chest nontender. Abdomen: Soft and nontender. Back: No tenderness. Skin: Skin warm and dry. Normal skin color. Normal skin turgor. Extremities: Extremities exhibit normal ROM. No lower extremity edema. Psych / Neuro: Oriented X 3. Abnormal mood and affect. Speech normal. Cognition not normal. Thought content not normal. Thought process not normal. Inattentive. Denies suicidal thoughts. Patient does not express homicidal thoughts. Insight and judgement not normal. The patient does not appear to understand hers illness. Cranial nerves normal (as tested). No motor deficit. No sensory deficit. (pt under the influence). PROGRESS AND PROCEDURES Course of Care: 1809. upon telling pt she looked good, pt started yelling at me, cussing at me, telling me she wasn't 'fucking good', and she wasn't alright, she is having major anxiety pt is well known to me and er staff pt has large ping, with recommendations, for no narcs, benzos, or controlled substances should be given in er, limit testing and imaging, #53 er visits, see report for full details upon nurse attempting to dc pt, pt got even more agitated and anxious and refusing to leave explained to pt that no meds would be given to calm her down, and she would not be admitted for anxiety, and we could not call pat team due to her recent drug use 1829. security called to bedside, been at bedside for several minutes attempting to talk to pt, pt still yelling and cussing, two nurses also at bedside, pt still refusing to cooperate and demanding I admit her for anxiety 18:39 06/02/16. police called and now at bedside 1846. pt refusing to stop yelling, placed in handcuffs and taken out with police. Patient counseled in person regarding the patient's stable condition and diagnosis. Differential Diagnosis: Other possible considerations: substance abuse, psych, bipolar, noncompliance, anxiety. Above considerations are based on history and physical exam. Differential diagnosis was discussed with patient. Disposition: Discharged home in good and unchanged condition (18:19). Condition: good and stable. CLINICAL IMPRESSION Anxiety reaction. Chronic substance abuse- methamphetamines. (Electronically signed by Marcelle Urban A.R.N.P. 06/02/2016 19:11)
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
--- NOTE | 2016-06-02 19:12 | ED MED RECONCILIATION SUMMARY ---
Patient: SILVIA ESPARZA Medication Reconciliation Report [facility] VisitID: [id number] [address] [place] [address] 41y, F Registration Date/Time: 06/02/2016 Weight: 58.9 kg Height/Length: 61 in. BMI: 24.5 ALLERGIES: Compazine, Gabapentin, morphine, Phenergan, Vancomycin, Vicodin The patient's Home Medications are listed below: THE FOLLOWING MEDICATIONS NEED TO BE RECONCILED: HydrOXYzine Pamoate Oral Paliperidone ER Oral Prazosin HCl Oral Ranitidine Acid Candy Bar Attendant Oral The source(s) of the original Home Medication information: patient The following Medications were given to the patient in the Emergency Department: None. The following Medications were prescribed to the patient: None.
--- NOTE | 2016-06-02 19:12 | ED MED RECONCILIATION SUMMARY ---
Patient: SILVIA ESPARZA Medication Reconciliation Report [facility] VisitID: [id number] [address] [place] [address] 41y, F Registration Date/Time: 06/02/2016 Weight: 58.9 kg Height/Length: 61 in. BMI: 24.5 ALLERGIES: Compazine, Gabapentin, morphine, Phenergan, Vancomycin, Vicodin The patient's Home Medications are listed below: THE FOLLOWING MEDICATIONS NEED TO BE RECONCILED: HydrOXYzine Pamoate Oral Paliperidone ER Oral Prazosin HCl Oral Ranitidine Acid Stamp Mounter Oral The source(s) of the original Home Medication information: patient The following Medications were given to the patient in the Emergency Department: None. The following Medications were prescribed to the patient: None.
--- NOTE | 2016-06-02 19:12 | ED DISCHARGE INSTRUCTIONS ---
Patient: SILVIA ESPARZA General Instructions [facility] VisitID: [id number] [place] [address] 41y, F Registration Date/Time: 06/02/2016 Anxiety reaction. Chronic substance abuse- methamphetamines. ADDITIONAL INFORMATION Stress Reaction Anxiety is the feeling we all get when we think something bad might happen. It is a normal response to stress and usually causes only a mild reaction. When anxiety becomes more severe, emotions may interfere with daily life. In some cases, you may not even be aware of what it is youre anxious about! During an anxiety reaction, you may feel like you are helpless, nervous, depressed or irritable. Your body may show signs of anxiety in many ways. You may experience dry mouth, shakiness, dizziness, weakness, trouble breathing, chest pressure, headache, nausea, diarrhea, tiredness, inability to sleep or sexual problems. Home Care: 1) Try to locate the sources of stress in your life. They may not be obvious! These may include: -- Daily hassles of life which pile up (traffic jams, missed appointments, car troubles, etc.) -- Major life changes, both good (new baby, job promotion) and bad (loss of job, loss of loved one) -- Overload: feeling that you have too many responsibilities and can't take care of all of them at once -- Feeling helpless, feeling that your problems are beyond what youre able to solve 2) Notice how your body reacts to stress. Learn to listen to your body signals. This will help you take action before the stress becomes severe. 3) When you can, do something about the source of your stress. (Avoid hassles, limit the amount of change that happens in your life at one time and take a break when you feel overloaded). 4) Unfortunately, many stressful situations cannot be avoided. It is necessary to learn HOW TO MANAGE STRESS better. There are many proven methods that will reduce your anxiety. These include simple things like exercise, good nutrition and adequate rest. Also, there are certain techniques that are helpful: relaxation and breathing exercises, visualization, biofeedback and meditation. For more information about this, consult your doctor or go to a local bookstore and review the many books and tapes available on this subject. Follow Up If you feel that your anxiety is not responding to self-help measures, contact your doctor or make an appointment with a counselor. Get Prompt Medical Attention if any of the following occur: -- Your symptoms get worse -- Chest pain or trouble breathing -- Severe headache not relieved by rest and mild pain reliever -- Rapid or irregular heartbeat, fainting Drug Abuse Use and abuse of such drugs as marijuana, amphetamines (speed, crank), cocaine, heroin or prescription pain medicines (Vicodin, codeine), sedatives and sleeping pills (Valium, Klonopin), PCP, mescaline and LSD may lead to addiction or dependence. Once this occurs, you are at greater risk for any of the following: Craving for the drug and unable to stop using the drug even though you think you want to stop (psychological dependence) Drug withdrawal symptoms if you stop taking the drug (physical dependence) Loss of your job or your family Arrest, conviction and correction sentence for possession of an illegal substance or for driving under the influence of such a substance Accidental injuries to yourself or others while you are under the influence of the drug (in a car or at home). HIV infection (much greater risk if you use IV drugs) Other sexually transmitted diseases (herpes, chlamydia, gonorrhea and others) Severe and fatal infection of the heart valves (if you use IV drugs) Stroke, heart attack, hepatitis B or C, kidney failure from overdose Home Care: Admit you have a drug problem. Ask for help from your family and close friends. Seek professional help. This could be in the form of individual psychotherapy or counseling or an outpatient, inpatient, or residential drug treatment program. Join a self-help group for drug abuse. Avoid friends who abuse drugs themselves or tempt you to continue abusing drugs. Eat a balanced diet and begin a regular exercise program. Follow Up with your doctor or as advised by our staff. Contact one of the resources below for help. National [place] on Alcoholism and Drug Dependence www.ncadd.org 960-259-QETT Narcotics Anonymous www.na.org 908-379-8480 National Alcohol and Substance Abuse Information Center (for referral to treatment programs) www.addictioncareArachno.[place] 909-698-0924 Get Prompt Medical Attention if any of the following occur: Agitation, anxiety, unable to sleep Unintended weight loss (more than 10 to 15 pounds over 3 months) Seizure Chest pain Fever of 100.4F (38C) or higher, or as directed by your healthcare provider Excess drowsiness or inability to be awakened Shortness of breath Slow breathing under 8 breaths per minute Cough with colored sputum Redness, swelling or tenderness at an injection site You have been given the following additional information: Anxiety Reaction Drug Abuse (Electronically signed by Marcelle Urban A.R.N.P. 06/02/2016 19:11)
--- NOTE | 2016-06-02 19:12 | ED DISCHARGE INSTRUCTIONS ---
Patient: SILVIA ESPARZA General Instructions [facility] VisitID: [id number] [place] [address] 41y, F Registration Date/Time: 06/02/2016 Anxiety reaction. Chronic substance abuse- methamphetamines. ADDITIONAL INFORMATION Stress Reaction Anxiety is the feeling we all get when we think something bad might happen. It is a normal response to stress and usually causes only a mild reaction. When anxiety becomes more severe, emotions may interfere with daily life. In some cases, you may not even be aware of what it is youre anxious about! During an anxiety reaction, you may feel like you are helpless, nervous, depressed or irritable. Your body may show signs of anxiety in many ways. You may experience dry mouth, shakiness, dizziness, weakness, trouble breathing, chest pressure, headache, nausea, diarrhea, tiredness, inability to sleep or sexual problems. Home Care: 1) Try to locate the sources of stress in your life. They may not be obvious! These may include: -- Daily hassles of life which pile up (traffic jams, missed appointments, car troubles, etc.) -- Major life changes, both good (new baby, job promotion) and bad (loss of job, loss of loved one) -- Overload: feeling that you have too many responsibilities and can't take care of all of them at once -- Feeling helpless, feeling that your problems are beyond what youre able to solve 2) Notice how your body reacts to stress. Learn to listen to your body signals. This will help you take action before the stress becomes severe. 3) When you can, do something about the source of your stress. (Avoid hassles, limit the amount of change that happens in your life at one time and take a break when you feel overloaded). 4) Unfortunately, many stressful situations cannot be avoided. It is necessary to learn HOW TO MANAGE STRESS better. There are many proven methods that will reduce your anxiety. These include simple things like exercise, good nutrition and adequate rest. Also, there are certain techniques that are helpful: relaxation and breathing exercises, visualization, biofeedback and meditation. For more information about this, consult your doctor or go to a local bookstore and review the many books and tapes available on this subject. Follow Up If you feel that your anxiety is not responding to self-help measures, contact your doctor or make an appointment with a counselor. Get Prompt Medical Attention if any of the following occur: -- Your symptoms get worse -- Chest pain or trouble breathing -- Severe headache not relieved by rest and mild pain reliever -- Rapid or irregular heartbeat, fainting Drug Abuse Use and abuse of such drugs as marijuana, amphetamines (speed, crank), cocaine, heroin or prescription pain medicines (Vicodin, codeine), sedatives and sleeping pills (Valium, Klonopin), PCP, mescaline and LSD may lead to addiction or dependence. Once this occurs, you are at greater risk for any of the following: Craving for the drug and unable to stop using the drug even though you think you want to stop (psychological dependence) Drug withdrawal symptoms if you stop taking the drug (physical dependence) Loss of your job or your family Arrest, conviction and usp sentence for possession of an illegal substance or for driving under the influence of such a substance Accidental injuries to yourself or others while you are under the influence of the drug (in a car or at home). HIV infection (much greater risk if you use IV drugs) Other sexually transmitted diseases (herpes, chlamydia, gonorrhea and others) Severe and fatal infection of the heart valves (if you use IV drugs) Stroke, heart attack, hepatitis B or C, kidney failure from overdose Home Care: Admit you have a drug problem. Ask for help from your family and close friends. Seek professional help. This could be in the form of individual psychotherapy or counseling or an outpatient, inpatient, or residential drug treatment program. Join a self-help group for drug abuse. Avoid friends who abuse drugs themselves or tempt you to continue abusing drugs. Eat a balanced diet and begin a regular exercise program. Follow Up with your doctor or as advised by our staff. Contact one of the resources below for help. National [place] on Alcoholism and Drug Dependence www.ncadd.org 384-824-YKUW Narcotics Anonymous www.na.org 663-474-8939 National Alcohol and Substance Abuse Information Center (for referral to treatment programs) www.addictioncareaTyr Pharma.[place] 214-826-8089 Get Prompt Medical Attention if any of the following occur: Agitation, anxiety, unable to sleep Unintended weight loss (more than 10 to 15 pounds over 3 months) Seizure Chest pain Fever of 100.4F (38C) or higher, or as directed by your healthcare provider Excess drowsiness or inability to be awakened Shortness of breath Slow breathing under 8 breaths per minute Cough with colored sputum Redness, swelling or tenderness at an injection site You have been given the following additional information: Anxiety Reaction Drug Abuse (Electronically signed by Marcelle Urban A.R.N.P. 06/02/2016 19:11)
--- NOTE | 2016-06-02 19:12 | ED MAR SUMMARY ---
..... Medication Administration Record [facility] [address] [place], [place] [id number] Patient: SILVIA ESPARZA Visit ID: [id number] 41y, F Weight: 58.9 kg Height/Length: 61 in BMI: 24.5 ALLERGIES: Compazine, Gabapentin, morphine, Phenergan, Vancomycin, Vicodin
--- NOTE | 2016-06-02 19:12 | ED MAR SUMMARY ---
..... Medication Administration Record [facility] [address] [place], [place] [id number] Patient: SILVIA ESPARZA Visit ID: [id number] 41y, F Weight: 58.9 kg Height/Length: 61 in BMI: 24.5 ALLERGIES: Compazine, Gabapentin, morphine, Phenergan, Vancomycin, Vicodin
== END 2016-06-02 18:45 ==
LOC: ED SRH 17:41
DX: F15.180 Other stimulant abuse with stimulant-induced anxiety disorder (principal); F20.9 Schizophrenia, unspecified; Z88.5 Allergy status to narcotic agent; Z88.8 Allergy status to other drugs, medicaments and biological substances; Z79.899 Other long term (current) drug therapy

== ENCOUNTER 2016-06-23 07:23 | Emergency (ER) | payer OTHER ==
--- NOTE | 2016-06-23 09:23 | ED CLINICAL REPORT ---
Clinical Report - Physicians/Mid Levels [facility] [address] [place] [address] 06/23/2016 7:23 [id number] Time Seen: 07:55 Jun 23 2016. Arrived- By private vehicle. Historian- patient. CPT: ER phys charges level 3 (#[id number]). HISTORY OF PRESENT ILLNESS Chief Complaint: DYSPNEA. This started today This started today. ( States feels like she can't get her breath. States doesn't feel like it's anxiety but she does have problems with her nerves.). Was found on the property in front of the lab and has a no trespass order . The security strategist confronted her and she decided to check in. and is still present. The dyspnea is described as moderate. (nothing). No cough, sputum production, fever, sweating episodes or wheezing. No dyspnea on exertion, chest pain or discomfort, calf pain or foot swelling. No dizziness or palpitations. She has had anxiety. (Hears voices frequently that are "mean" in nature. Denies suicidal ideation or homocidal ideation. Is still doing meth. Missed her psychologist appointment yesterday. Denies missing medication or running out of meds.). Similar symptoms previously: Recent medical care: The patient was seen recently by a health care provider. REVIEW OF SYSTEMS No eye irritation, sore throat, nasal discharge, sinus drainage or nausea. No vomiting, abdominal pain, diarrhea, black stools or fainting episodes. No difficulty with urination, excessive urination, skin rash, enlarged lymph nodes or joint pain. No missed periods. Denies current . All systems otherwise negative, except as recorded above. PAST HISTORY Suicidal Ideation. Suicide Attempt. Schizophrenia Hematoma. Otitis Media. Dental Pain. Hypokalemia. Dizziness. Acute Otalgia. Thrombophlebitis. Abcess x 3. Anemia. Rectal Bleed. Abnormal Liver Function Test. Depression. Substance Abuse. Psychosis. Schizophrenia. Anxiety Reaction. . ADDITIONAL SURGERIES: Ankle surgery. . Tonsillectomy. Medications: Invega Oral. HydrOXYzine Pamoate Oral. Prazosin HCl Oral. Ranitidine Acid Pickle Pumper Oral. Allergies: Compazine. Gabapentin. morphine. Phenergan. Vancomycin. Vicodin. SOCIAL HISTORY History of drug use: methamphetamines. ADDITIONAL NOTES The nursing notes have been reviewed. PHYSICAL EXAM Vital Signs: 06/23/2016 07:30 BP: 126/72. HR: 107. RR: 20. O2 saturation: 100%. Temp: 98.0 F. Appearance: Alert. No acute distress. Eyes: Eyes normal inspection. ENT: Pharynx normal. Neck: Normal inspection. CVS: Normal heart rate and rhythm. Heart sounds normal. Pulses normal. Respiratory: No respiratory distress. Breath sounds normal. Abdomen: Soft and nontender. Back: Normal inspection. Skin: Skin warm. Normal skin color. No rash. Extremities: Extremities exhibit normal ROM. No lower extremity edema. Neuro: Oriented X 3. No motor deficit. No sensory deficit. Reflexes normal. LABS, X-RAYS, AND EKG Laboratory Tests: UA-Culture if indicated: (SANTA: 06/23/2016 08:45) ( [facility] 06/23/2016 09:27) Final results Test Result Flag Units (Reference) URINE COLOR YELLOW URINE APPEARANCE CLEAR URINE GLUCOSE NEGATIVE (NEGATIVE) URINE BILIRUBIN NEGATIVE (NEGATIVE) URINE KETONE NEGATIVE (NEGATIVE) URINE SPECIFIC GRAVITY >= 1.030 (1.010-1.030) URINE PH 5.5 (5.0-8.0) URINE PROTEIN NEGATIVE (NEGATIVE) URINE UROBILINOGEN 0.2 EU/dL (0.2-1.0) URINE NITRITE NEGATIVE (NEGATIVE) URINE BLOOD NEGATIVE (NEGATIVE) URINE LEUK ESTERASE NEGATIVE (NEGATIVE) URINE RBC NONE SEEN rbc/hpf (0-1) URINE WBC 1-3 wbc/hpf (0-1) URINE EPITHELIAL CELLS 0-1 EPI/hpf (0-5) URINE BACTERIA MODERATE (2+ TO 3+) (NONE SEEN) 2+ URINE COMMENT CULTURE INDICATED URINE CULTURES ARE SET-UP BASED ON THE FOLLOWING CRITERIA:POSITIVE NITRITEPOSITIVE LEUKOCYTE ESTERASEGREATER THAN 10 WHITE BLOOD CELLSMODERATE (2+) OR GREATER BACTERIA Urine: (SANTA: 06/23/2016 08:45) ( [facility] Final results Test Result Flag Units (Reference) URINE NEGATIVE Urine Drug Screen: (SANTA: 06/23/2016 08:45) ( [facility] 06/23/2016 09:13) Final results Test Result Flag Units (Reference) AMPHETAMINE/METHAMPHETAMINE POSITIVE H (NEGATIVE) BARBITURATE NEGATIVE (NEGATIVE) BENZODIAZEPINE NEGATIVE (NEGATIVE) CANNABINOID NEGATIVE (NEGATIVE) COCAINE NEGATIVE (NEGATIVE) ECSTASY POSITIVE H (NEGATIVE) METHADONE NEGATIVE (NEGATIVE) OPIATE POSITIVE H (NEGATIVE) The urine drug screen is a qualitative screening test fordrug overdose and abuse. All screen results should beconsidered as presumptive.Drugs screened for are as follows:BenzodiazepinesCocaineAmphetamines/MetamphetaminesTHC (Tetrahydrocannabinol)OpiatesBarbituratesEcstasyMethadonePositive results are unconfirmed. For confirmation, notifythe lab for the specimen to be sent to the reference lab.All confirmations must be performed by a differentmethodology.The ingestion of natural herbal and plant productscontaining Ephedra/Ephedra metabolites can produce in urineone or more substances capable of cross reacting withamphetamine/methamphetamine immunoassays. These testsprovide a preliminary result only. A more specificalternative chemical method must be used to obtain aconfirmed analytical result. . PROGRESS AND PROCEDURES Course of Care: Discussed with career development specialist. They want her to come to office today. Patient/family counseled. Disposition: Discharged. Condition: stable. CLINICAL IMPRESSION Anxiety Methamphetamine use. Schizophrenia. INSTRUCTIONS (Go to office today to get medications adjusted.). Warnings: Further evaluation is necessary. Your Current Medications: CONTINUE TAKING THE FOLLOWING MEDICATIONS: HydrOXYzine Pamoate Oral. Invega Oral. Prazosin HCl Oral. Ranitidine Acid Pickle Pumper Oral. Follow-up: Follow up with your doctor today. Understanding of the discharge instructions verbalized by patient. (Electronically signed by Sushant Neville MD 06/24/2016 8:37)
--- NOTE | 2016-06-23 09:23 | ED CLINICAL REPORT ---
Clinical Report - Physicians/Mid Levels [facility] [address] [place] [address] 06/23/2016 7:23 [id number] Time Seen: 07:55 Jun 23 2016. Arrived- By private vehicle. Historian- patient. CPT: ER phys charges level 3 (#[id number]). HISTORY OF PRESENT ILLNESS Chief Complaint: DYSPNEA. This started today This started today. ( States feels like she can't get her breath. States doesn't feel like it's anxiety but she does have problems with her nerves.). Was found on the property in front of the lab and has a no trespass order . The information systems security specialist confronted her and she decided to check in. and is still present. The dyspnea is described as moderate. (nothing). No cough, sputum production, fever, sweating episodes or wheezing. No dyspnea on exertion, chest pain or discomfort, calf pain or foot swelling. No dizziness or palpitations. She has had anxiety. (Hears voices frequently that are "mean" in nature. Denies suicidal ideation or homocidal ideation. Is still doing meth. Missed her psychologist appointment yesterday. Denies missing medication or running out of meds.). Similar symptoms previously: Recent medical care: The patient was seen recently by a health care provider. REVIEW OF SYSTEMS No eye irritation, sore throat, nasal discharge, sinus drainage or nausea. No vomiting, abdominal pain, diarrhea, black stools or fainting episodes. No difficulty with urination, excessive urination, skin rash, enlarged lymph nodes or joint pain. No missed periods. Denies current . All systems otherwise negative, except as recorded above. PAST HISTORY Suicidal Ideation. Suicide Attempt. Schizophrenia Hematoma. Otitis Media. Dental Pain. Hypokalemia. Dizziness. Acute Otalgia. Thrombophlebitis. Abcess x 3. Anemia. Rectal Bleed. Abnormal Liver Function Test. Depression. Substance Abuse. Psychosis. Schizophrenia. Anxiety Reaction. . ADDITIONAL SURGERIES: Ankle surgery. . Tonsillectomy. Medications: Invega Oral. HydrOXYzine Pamoate Oral. Prazosin HCl Oral. Ranitidine Acid Steel Turner Oral. Allergies: Compazine. Gabapentin. morphine. Phenergan. Vancomycin. Vicodin. SOCIAL HISTORY History of drug use: methamphetamines. ADDITIONAL NOTES The nursing notes have been reviewed. PHYSICAL EXAM Vital Signs: 06/23/2016 07:30 BP: 126/72. HR: 107. RR: 20. O2 saturation: 100%. Temp: 98.0 F. Appearance: Alert. No acute distress. Eyes: Eyes normal inspection. ENT: Pharynx normal. Neck: Normal inspection. CVS: Normal heart rate and rhythm. Heart sounds normal. Pulses normal. Respiratory: No respiratory distress. Breath sounds normal. Abdomen: Soft and nontender. Back: Normal inspection. Skin: Skin warm. Normal skin color. No rash. Extremities: Extremities exhibit normal ROM. No lower extremity edema. Neuro: Oriented X 3. No motor deficit. No sensory deficit. Reflexes normal. LABS, X-RAYS, AND EKG Laboratory Tests: UA-Culture if indicated: (SANTA: 06/23/2016 08:45) ( [facility] 06/23/2016 09:27) Final results Test Result Flag Units (Reference) URINE COLOR YELLOW URINE APPEARANCE CLEAR URINE GLUCOSE NEGATIVE (NEGATIVE) URINE BILIRUBIN NEGATIVE (NEGATIVE) URINE KETONE NEGATIVE (NEGATIVE) URINE SPECIFIC GRAVITY >= 1.030 (1.010-1.030) URINE PH 5.5 (5.0-8.0) URINE PROTEIN NEGATIVE (NEGATIVE) URINE UROBILINOGEN 0.2 EU/dL (0.2-1.0) URINE NITRITE NEGATIVE (NEGATIVE) URINE BLOOD NEGATIVE (NEGATIVE) URINE LEUK ESTERASE NEGATIVE (NEGATIVE) URINE RBC NONE SEEN rbc/hpf (0-1) URINE WBC 1-3 wbc/hpf (0-1) URINE EPITHELIAL CELLS 0-1 EPI/hpf (0-5) URINE BACTERIA MODERATE (2+ TO 3+) (NONE SEEN) 2+ URINE COMMENT CULTURE INDICATED URINE CULTURES ARE SET-UP BASED ON THE FOLLOWING CRITERIA:POSITIVE NITRITEPOSITIVE LEUKOCYTE ESTERASEGREATER THAN 10 WHITE BLOOD CELLSMODERATE (2+) OR GREATER BACTERIA Urine: ([facility]ANTA: 06/23/2016 08:45) ( [facility] Final results Test Result Flag Units (Reference) URINE NEGATIVE Urine Drug Screen: (SANTA: 06/23/2016 08:45) ( [facility] 06/23/2016 09:13) Final results Test Result Flag Units (Reference) AMPHETAMINE/METHAMPHETAMINE POSITIVE H (NEGATIVE) BARBITURATE NEGATIVE (NEGATIVE) BENZODIAZEPINE NEGATIVE (NEGATIVE) CANNABINOID NEGATIVE (NEGATIVE) COCAINE NEGATIVE (NEGATIVE) ECSTASY POSITIVE H (NEGATIVE) METHADONE NEGATIVE (NEGATIVE) OPIATE POSITIVE H (NEGATIVE) The urine drug screen is a qualitative screening test fordrug overdose and abuse. All screen results should beconsidered as presumptive.Drugs screened for are as follows:BenzodiazepinesCocaineAmphetamines/MetamphetaminesTHC (Tetrahydrocannabinol)OpiatesBarbituratesEcstasyMethadonePositive results are unconfirmed. For confirmation, notifythe lab for the specimen to be sent to the reference lab.All confirmations must be performed by a differentmethodology.The ingestion of natural herbal and plant productscontaining Ephedra/Ephedra metabolites can produce in urineone or more substances capable of cross reacting withamphetamine/methamphetamine immunoassays. These testsprovide a preliminary result only. A more specificalternative chemical method must be used to obtain aconfirmed analytical result. . PROGRESS AND PROCEDURES Course of Care: Discussed with care tech. They want her to come to office today. Patient/family counseled. Disposition: Discharged. Condition: stable. CLINICAL IMPRESSION Anxiety Methamphetamine use. Schizophrenia. INSTRUCTIONS (Go to office today to get medications adjusted.). Warnings: Further evaluation is necessary. Your Current Medications: CONTINUE TAKING THE FOLLOWING MEDICATIONS: HydrOXYzine Pamoate Oral. Invega Oral. Prazosin HCl Oral. Ranitidine Acid Steel Turner Oral. Follow-up: Follow up with your doctor today. Understanding of the discharge instructions verbalized by patient. (Electronically signed by Sushant Neville MD 06/24/2016 8:37)
--- NOTE | 2016-06-23 09:23 | ED ORDER SUMMARY ---
..... Patient: SILVIA ESPARZA OrderSheet [facility] VisitID: [id number] [address] [place] [address] 41y, F Registration Date/Time: 06/23/2016 ORDER SHEET Weight: 58.9 kg (stated) Allergies: Compazine, Gabapentin, morphine, Phenergan, Vancomycin, Vicodin GENERAL ORDERS: UA-Culture if indicated Urgent (08:06/23/2016 Peyman CAMPBELL) (Ack 8:14 LNations ER Tech1) Urine Drug Screen Urgent (08:06/23/2016 Peyman CAMPBELL) (Ack 8:14 LNations ER Tech1) Urine Urgent (08:06/23/2016 Peyman CAMPBELL) (Ack 8:14 LNations ER Tech1) MEDICATION ORDERS: IV FLUIDS: ORDER SHEET NOTES: [Electronically signed by Anastasiya Isaac R.N. (19:16 06/23/2016)] [Electronically signed by Sushant Neville MD (08:37 06/24/2016)] [Electronically locked/signed by Anastasiya Isaac R.N. (19:16 06/23/2016)]
--- NOTE | 2016-06-23 09:23 | ED ORDER SUMMARY ---
..... Patient: SILVIA ESPARZA OrderSheet [facility] VisitID: [id number] [address] [place] [address] 41y, F Registration Date/Time: 06/23/2016 ORDER SHEET Weight: 58.9 kg (stated) Allergies: Compazine, Gabapentin, morphine, Phenergan, Vancomycin, Vicodin GENERAL ORDERS: UA-Culture if indicated Urgent (08:06/23/2016 Peyman CAMPBELL) (Ack 8:14 LNations ER Tech1) Urine Drug Screen Urgent (08:06/23/2016 Peyman CAMPBELL) (Ack 8:14 LNations ER Tech1) Urine Urgent (08:06/23/2016 Peyman CAMPBELL) (Ack 8:14 LNations ER Tech1) MEDICATION ORDERS: IV FLUIDS: ORDER SHEET NOTES: [Electronically signed by Anastasiya Isaac R.N. (19:16 06/23/2016)] [Electronically signed by Sushant Neville MD (08:37 06/24/2016)] [Electronically locked/signed by Anastasiya Isaac R.N. (19:16 06/23/2016)]
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
--- NOTE | 2016-06-24 08:38 | ED DISCHARGE INSTRUCTIONS ---
Patient: SILVIA ESPARZA General Instructions [facility] VisitID: [id number] [address] [place] [address] 41y, F Registration Date/Time: 06/23/2016 Anxiety Methamphetamine use. Schizophrenia. INSTRUCTIONS (Go to office today to get medications adjusted.). Warnings: Further evaluation is necessary. Your Current Medications: CONTINUE TAKING THE FOLLOWING MEDICATIONS: HydrOXYzine Pamoate Oral. Invega Oral. Prazosin HCl Oral. Ranitidine Acid Supervisor Warping Department Oral. Follow-up: Follow up with your doctor today. Understanding of the discharge instructions verbalized by patient. (Electronically signed by Sushant Neville MD 06/24/2016 8:37)
--- NOTE | 2016-06-24 08:38 | ED MED RECONCILIATION SUMMARY ---
Patient: SILVIA ESPARZA Medication Reconciliation Report [facility] VisitID: [id number] [address] [place] [address] 41y, F Registration Date/Time: 06/23/2016 Weight: 58.9 kg Height/Length: 61 in. BMI: 24.5 ALLERGIES: Compazine, Gabapentin, morphine, Phenergan, Vancomycin, Vicodin The patient's Home Medications are listed below: CONTINUE TAKING THE FOLLOWING MEDICATIONS: HydrOXYzine Pamoate Oral Invega Oral Prazosin HCl Oral Ranitidine Acid Senior Systems Developer Oral The source(s) of the original Home Medication information: Not obtained. The following Medications were given to the patient in the Emergency Department: None. The following Medications were prescribed to the patient: None.
--- NOTE | 2016-06-24 08:38 | ED MED RECONCILIATION SUMMARY ---
Patient: SILVIA ESPARZA Medication Reconciliation Report [facility] VisitID: [id number] [address] [place] [address] 41y, F Registration Date/Time: 06/23/2016 Weight: 58.9 kg Height/Length: 61 in. BMI: 24.5 ALLERGIES: Compazine, Gabapentin, morphine, Phenergan, Vancomycin, Vicodin The patient's Home Medications are listed below: CONTINUE TAKING THE FOLLOWING MEDICATIONS: HydrOXYzine Pamoate Oral Invega Oral Prazosin HCl Oral Ranitidine Acid Watch Band Assembler Oral The source(s) of the original Home Medication information: Not obtained. The following Medications were given to the patient in the Emergency Department: None. The following Medications were prescribed to the patient: None.
--- NOTE | 2016-06-24 08:38 | ED MAR SUMMARY ---
..... Medication Administration Record [facility] [address] [place] [address] Patient: SILVIA ESPARZA Visit ID: [id number] 41y, F Weight: 58.9 kg Height/Length: 61 in BMI: 24.5 ALLERGIES: Compazine, Gabapentin, morphine, Phenergan, Vancomycin, Vicodin
--- NOTE | 2016-06-24 08:38 | ED MAR SUMMARY ---
..... Medication Administration Record [facility] [address] [place] [address] Patient: SILVIA ESPARZA Visit ID: [id number] 41y, F Weight: 58.9 kg Height/Length: 61 in BMI: 24.5 ALLERGIES: Compazine, Gabapentin, morphine, Phenergan, Vancomycin, Vicodin
--- NOTE | 2016-06-24 08:38 | ED DISCHARGE INSTRUCTIONS ---
Patient: SILVIA ESPARZA General Instructions [facility] VisitID: [id number] [address] [place] [address] 41y, F Registration Date/Time: 06/23/2016 Anxiety Methamphetamine use. Schizophrenia. INSTRUCTIONS (Go to office today to get medications adjusted.). Warnings: Further evaluation is necessary. Your Current Medications: CONTINUE TAKING THE FOLLOWING MEDICATIONS: HydrOXYzine Pamoate Oral. Invega Oral. Prazosin HCl Oral. Ranitidine Acid Flea Market Seller Oral. Follow-up: Follow up with your doctor today. Understanding of the discharge instructions verbalized by patient. (Electronically signed by Sushant Neville MD 06/24/2016 8:37)
== END 2016-06-23 09:35 | disposition home or self-care (01) ==
LOC: ED SRH 07:23
DX: F41.9 Anxiety disorder, unspecified (principal); F15.90 Other stimulant use, unspecified, uncomplicated; F25.9 Schizoaffective disorder, unspecified; Z79.899 Other long term (current) drug therapy; Z87.891 Personal history of nicotine dependence; Z88.8 Allergy status to other drugs, medicaments and biological substances; Z88.5 Allergy status to narcotic agent; Z88.1 Allergy status to other antibiotic agents
CPT/HCPCS: 90004; 90469; 92760; 92761; 92762; 92763; 92764; 92765; 92766; 92767; 93070

== ENCOUNTER 2016-06-25 19:39 | Emergency (ER) | payer OTHER ==
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
--- NOTE | 2016-06-25 20:47 | ED MAR SUMMARY ---
..... Medication Administration Record [facility] [address] [place] [address] Patient: SILVIA ESPARZA Visit ID: [id number] 41y, F Weight: 62.5 kg Height/Length: 61 in BMI: 26 ALLERGIES: Compazine, Gabapentin, morphine, Phenergan, Vancomycin, Vicodin
--- NOTE | 2016-06-25 20:47 | ED MED RECONCILIATION SUMMARY ---
Patient: SILVIA ESPARZA Medication Reconciliation Report [facility] VisitID: [id number] [place] [address] 41y, F Registration Date/Time: 06/25/2016 Weight: 62.5 kg Height/Length: 61 in. BMI: 26.0 ALLERGIES: Compazine, Gabapentin, morphine, Phenergan, Vancomycin, Vicodin The patient's Home Medications are listed below: THE FOLLOWING MEDICATIONS NEED TO BE RECONCILED: HydrOXYzine Pamoate Oral Invega Oral Prazosin HCl Oral Ranitidine Acid Host/Hostess Head Oral The source(s) of the original Home Medication information: Not obtained. The following Medications were given to the patient in the Emergency Department: None. The following Medications were prescribed to the patient: Take OTC medications according to label instructions. Available over the counter. -- Yessy Montanez, P.A.-C Acetaminophen (available over the counter): take according to label instructions. -- Yessy Montanez, P.A.-C Motrin (available over the counter): take according to label instructions. -- Yesys Montanez, P.A.-C
--- NOTE | 2016-06-25 20:47 | ED MED RECONCILIATION SUMMARY ---
Patient: SILVIA ESPARZA Medication Reconciliation Report [facility] VisitID: [id number] [place] [address] 41y, F Registration Date/Time: 06/25/2016 Weight: 62.5 kg Height/Length: 61 in. BMI: 26.0 ALLERGIES: Compazine, Gabapentin, morphine, Phenergan, Vancomycin, Vicodin The patient's Home Medications are listed below: THE FOLLOWING MEDICATIONS NEED TO BE RECONCILED: HydrOXYzine Pamoate Oral Invega Oral Prazosin HCl Oral Ranitidine Acid Radio Communications Superintendent Oral The source(s) of the original Home Medication information: Not obtained. The following Medications were given to the patient in the Emergency Department: None. The following Medications were prescribed to the patient: Take OTC medications according to label instructions. Available over the counter. -- Yessy Montanez, P.A.-C Acetaminophen (available over the counter): take according to label instructions. -- Yessy Montanez, P.A.-C Motrin (available over the counter): take according to label instructions. -- Yessy Montanez, P.A.-C
--- NOTE | 2016-06-25 20:47 | ED MAR SUMMARY ---
..... Medication Administration Record [facility] [address] [place] [address] Patient: SILVIA ESPARZA Visit ID: [id number] 41y, F Weight: 62.5 kg Height/Length: 61 in BMI: 26 ALLERGIES: Compazine, Gabapentin, morphine, Phenergan, Vancomycin, Vicodin
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
--- NOTE | 2016-06-25 21:21 | DIAGNOSTIC IMAGING REPORT ---
PROCEDURE: XR CERVICAL SPINE 2 OR 3 VIEW INDICATION: NECK PAIN TECHNIQUE: Three views. COMPARISON: None. FINDINGS: 1 mm C4-5 anterolisthesis with mild C4-5 and C5-6 degenerative changes. No fracture. Straightening of the cervical spine. Odontoid, lateral masses of C1 and prevertebral soft tissues are normal. IMPRESSION: 1. Mild C4-5 and C5-6 degenerative changes 2. Straightening of the cervical spine suggestive of muscular spasm.
== END 2016-06-25 20:35 | disposition home or self-care (01) ==
LOC: ED SRH 19:39
DX: S16.1XXA Strain of muscle, fascia and tendon at neck level, initial encounter (principal); V47.1XXA Car passenger injured in collision with fixed or stationary object in nontraffic accident, initial encounter; Y93.89 Activity, other specified; Y92.410 Unspecified street and highway as the place of occurrence of the external cause; Z79.899 Other long term (current) drug therapy; Z88.8 Allergy status to other drugs, medicaments and biological substances; Z88.5 Allergy status to narcotic agent

== ENCOUNTER 2016-07-08 11:21 | Emergency (ER) | payer OTHER ==
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
--- NOTE | 2016-07-08 16:27 | ED MAR SUMMARY ---
..... Medication Administration Record [facility] [address] [place] [address] Patient: SILVIA ESPARZA Visit ID: [id number] 41y, F Weight: 58.9 kg Height/Length: 61 in BMI: 24.5 ALLERGIES: Compazine, Gabapentin, morphine, Phenergan, Vancomycin, Vicodin
--- NOTE | 2016-07-08 16:27 | ED MAR SUMMARY ---
..... Medication Administration Record [facility] [address] [place] [address] Patient: SILVIA ESPARZA Visit ID: [id number] 41y, F Weight: 58.9 kg Height/Length: 61 in BMI: 24.5 ALLERGIES: Compazine, Gabapentin, morphine, Phenergan, Vancomycin, Vicodin
--- NOTE | 2016-07-08 16:27 | ED MED RECONCILIATION SUMMARY ---
Patient: SILVIA ESPARZA Medication Reconciliation Report [facility] VisitID: [id number] [address] [place] [address] 41y, F Registration Date/Time: 07/08/2016 Weight: 58.9 kg Height/Length: 61 in. BMI: 24.5 ALLERGIES: Compazine, Gabapentin, morphine, Phenergan, Vancomycin, Vicodin The patient's Home Medications are listed below: CONTINUE TAKING THE FOLLOWING MEDICATIONS: Albuterol Sulfate Inhalation HydrOXYzine Pamoate Oral Invega Oral Lidocain oral Prazosin HCl Oral Ranitidine Acid Disability Benefits Specialist Oral The source(s) of the original Home Medication information: Not obtained. The following Medications were given to the patient in the Emergency Department: None. The following Medications were prescribed to the patient: Ranitidine 150 mg tablets: take 1 orally every 12 hours. Dispense thirty (30). No refills. -- Chandan Esparza DO Albuterol HFA oral inhaler: inhale 1 to 2 puffs every four to six hours as needed for difficulty breathing. Dispense one (1) unit. No refills.(with spacer) -- Chandan Esparza DO Invega 6 mgDisp # 7sig 1 po QD. -- Chandan Esparza DO Prazosin 1 mg: Take 1 orally every 12 hours. Dispense thirty (30). No refills. -- Chandan Esparza DO Hydroxyzine 50 mg: Take 1 orally every 6 hours as needed for anxiety. Dispense twenty (20). No refills. -- Chandan Esparza DO
--- NOTE | 2016-07-08 16:27 | ED DISCHARGE INSTRUCTIONS ---
Patient: SILVIA ESPARZA General Instructions [facility] VisitID: [id number] [place] [address] 41y, F Registration Date/Time: 07/08/2016 Medication refill. 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 INSTRUCTIONS Drink plenty of fluids. Do not smoke. No alcohol. Warnings: Further evaluation is necessary (YOU NEED TO SEE YOUR DOCTOR TOMORROW - WE HAVE GIVEN YOU BUS PASSES IF YOU HAVE ANY TRANSPORTATION CONCERNS). It is very important to follow up with a physician. GENERAL WARNINGS: Return or contact your physician immediately if your condition worsens or changes unexpectedly, if not improving as expected, or if other problems arise. Your Current Medications: CONTINUE TAKING THE FOLLOWING MEDICATIONS: Albuterol Sulfate Inhalation. HydrOXYzine Pamoate Oral. Invega Oral. Lidocain oral*. Prazosin HCl Oral. Ranitidine Acid Director Translation Oral. Prescription Medications: Ranitidine 150 mg tablets: take 1 orally every 12 hours. Dispense thirty (30). No refills. Albuterol HFA oral inhaler: inhale 1 to 2 puffs every four to six hours as needed for difficulty breathing. Dispense one (1) unit. No refills. (with spacer) Prazosin 1 mg: Take 1 orally every 12 hours. Dispense thirty (30). No refills. Hydroxyzine 50 mg: Take 1 orally every 6 hours as needed for anxiety. Dispense twenty (20). No refills. Invega 6 mg Disp # 7 sig 1 po QD. Follow-up with: [facility], [facility], , [address] [place] [address], [place] [id number] Follow up tomorrow. Call for the next available appointment. Reason for referral: AN APPOINTMENT HAS BEEN MADE FOR YOU FOR 10:45 AM TOMORROW - PLEASE ARRIVE 15 MIN EARLY. ADDITIONAL INFORMATION Schizophrenia [General Type] Schizophrenia is a chronic, severe and disabling brain disorder. The cause of schizophrenia is not yet known. It is believed to be a result of genetic and biological factors (brain chemistry and structure). Schizophrenia does run in families and occurs in about 1% of the adult population. Symptoms include: Hallucinations (seeing or hearing things that are not there) Delusions (false beliefs) Disorganized thinking and speech Social withdrawal Severe anxiety Feeling unreal Medicines and therapy can help with many of the symptoms and allow for better daily function and quality of life. These medicines take 2-4 weeks to begin working and 6-8 weeks to take full effect. It is common to feel that you are not ill and that you don't need treatment. It is important to accept the support of friends and family in continuing to take your medicine. Home Care: Be sure to take your medicine as directed even if you think you dont need it. Seek support from friends or family by talking about your feelings and thoughts. Follow Up with your doctor or therapist as advised by our staff. For more information, contact [employer] 604-985-6310 www.tacos.org Get Prompt Medical Attention if any of the following occur: Feeling like your symptoms are getting worse Feeling out of control or that you are being controlled by others Feeling like you want to harm yourself or another Unable to care for yourself Worsening hallucinations (hearing voices) Worsening depression or anxiety Drug Abuse Use and abuse of such drugs as marijuana, amphetamines (speed, crank), cocaine, heroin or prescription pain medicines (Vicodin, codeine), sedatives and sleeping pills (Valium, Klonopin), PCP, mescaline and LSD may lead to addiction or dependence. Once this occurs, you are at greater risk for any of the following: Craving for the drug and unable to stop using the drug even though you think you want to stop (psychological dependence) Drug withdrawal symptoms if you stop taking the drug (physical dependence) Loss of your job or your family Arrest, conviction and long term sentence for possession of an illegal substance or for driving under the influence of such a substance Accidental injuries to yourself or others while you are under the influence of the drug (in a car or at home). HIV infection (much greater risk if you use IV drugs) Other sexually transmitted diseases (herpes, chlamydia, gonorrhea and others) Severe and fatal infection of the heart valves (if you use IV drugs) Stroke, heart attack, hepatitis B or C, kidney failure from overdose Home Care: Admit you have a drug problem. Ask for help from your family and close friends. Seek professional help. This could be in the form of individual psychotherapy or counseling or an outpatient, inpatient, or residential drug treatment program. Join a self-help group for drug abuse. Avoid friends who abuse drugs themselves or tempt you to continue abusing drugs. Eat a balanced diet and begin a regular exercise program. Follow Up with your doctor or as advised by our staff. Contact one of the resources below for help. National [place] on Alcoholism and Drug Dependence www.ncadd.org 704-105-XOAH Narcotics Anonymous www.na.org 651-509-1989 [employer] and Substance Abuse Information Center (for referral to treatment programs) www.[employer] 147-869-9505 Get Prompt Medical Attention if any of the following occur: Agitation, anxiety, unable to sleep Unintended weight loss (more than 10 to 15 pounds over 3 months) Seizure Chest pain Fever of 100.4F (38C) or higher, or as directed by your healthcare provider Excess drowsiness or inability to be awakened Shortness of breath Slow breathing under 8 breaths per minute Cough with colored sputum Redness, swelling or tenderness at an injection site Ranitidine Hydrochloride Oral tablet What is this medicine? RANITIDINE (ra BENJAMIN boyd) is a type of antihistamine that blocks the release of stomach acid. It is used to treat stomach or intestinal ulcers. It can relieve ulcer pain and discomfort, and the heartburn from acid reflux. How should I use this medicine? Take this medicine by mouth with a glass of water. Follow the directions on the prescription label. If you only take this medicine once a day, take it at bedtime. Take your medicine at regular intervals. Do not take your medicine more often than directed. Do not stop taking except on your doctor's advice. Talk to your poultry field service technician regarding the use of this medicine in children. Special care may be needed. What side effects may I notice from receiving this medicine? Side effects that you should report to your doctor or health direct care supervisor as soon as possible: agitation, nervousness, depression, hallucinations allergic reactions like skin rash, itching or hives, swelling of the face, lips, or tongue breast enlargement in both males and females breathing problems redness, blistering, peeling or loosening of the skin, including inside the mouth unusual bleeding or bruising unusually weak or tired vomiting yellowing of the skin or eyes Side effects that usually do not require medical attention (report to your doctor or health direct care supervisor if they continue or are bothersome): constipation or diarrhea dizziness headache nausea What may interact with this medicine? atazanavir delavirdine gefitinib glipizide ketoconazole midazolam procainamide propantheline triazolam warfarin What if I miss a dose? If you miss a dose, take it as soon as you can. If it is almost time for your next dose, take only that dose. Do not take double or extra doses. Where should I keep my medicine? Keep out of the reach of children. Store at room temperature between 15 and 30 degrees C (59 and 86 degrees F). Protect from light and moisture. Keep container tightly closed. Throw away any unused medicine after the expiration date. What should I tell my health care provider before I take this medicine? They need to know if you have any of these conditions: kidney disease liver disease porphyria an unusual or allergic reaction to ranitidine, other medicines, foods, dyes, or preservatives or trying to get breast-feeding What should I watch for while using this medicine? Tell your doctor or health direct care supervisor if your condition does not start to get better or gets worse. You may need to take this medicine for several days as prescribed before your symptoms get better. Finish the full course of tablets prescribed, even if you feel better. Do not smoke cigarettes or drink alcohol. These increase irritation in your stomach and can lengthen the time it will take for ulcers to heal. Cigarettes and alcohol can also make acid reflux or heartburn worse. If you get black, tarry stools or vomit up what looks like coffee grounds, call your doctor or health direct care supervisor at once. You may have a bleeding ulcer. Albuterol Sulfate Pressurized inhalation, suspension What is this medicine? ALBUTEROL (al BYOO ter ole) is a bronchodilator. It helps open up the airways in your lungs to make it easier to breathe. This medicine is used to treat and to prevent bronchospasm. How should I use this medicine? This medicine is for inhalation through the mouth. Follow the directions on your prescription label. Take your medicine at regular intervals. Do not use more often than directed. Make sure that you are using your inhaler correctly. Ask you doctor or health care provider if you have any questions. Talk to your poultry field service technician regarding the use of this medicine in children. Special care may be needed. What side effects may I notice from receiving this medicine? Side effects that you should report to your doctor or health direct care supervisor as soon as possible: allergic reactions like skin rash, itching or hives, swelling of the face, lips, or tongue breathing problems chest pain feeling faint or lightheaded, falls high blood pressure irregular heartbeat fever muscle cramps or weakness pain, tingling, numbness in the hands or feet vomiting Side effects that usually do not require medical attention (report to your doctor or health direct care supervisor if they continue or are bothersome): cough difficulty sleeping headache nervousness or trembling stomach upset stuffy or runny nose throat irritation unusual taste What may interact with this medicine? anti-infectives like chloroquine and pentamidine caffeine cisapride diuretics medicines for colds medicines for depression or for emotional or psychotic conditions medicines for weight loss including some herbal products methadone some antibiotics like clarithromycin, erythromycin, levofloxacin, and linezolid some heart medicines steroid hormones like dexamethasone, cortisone, hydrocortisone theophylline thyroid hormones What if I miss a dose? If you miss a dose, use it as soon as you can. If it is almost time for your next dose, use only that dose. Do not use double or extra doses. Where should I keep my medicine? Keep out of the reach of children. Store at room temperature between 15 and 30 degrees C (59 and 86 degrees F). The contents are under pressure and may burst when exposed to heat or flame. Do not freeze. This medicine does not work as well if it is too cold. Throw away any unused medicine after the expiration date. Inhalers need to be thrown away after the labeled number of puffs have been used or by the expiration date; whichever comes first. Ventolin HFA should be thrown away 12 months after removing from foil pouch. Check the instructions that come with your medicine. What should I tell my health care provider before I take this medicine? They need to know if you have any of the following conditions: diabetes heart disease or irregular heartbeat high blood pressure pheochromocytoma seizures thyroid disease an unusual or allergic reaction to albuterol, levalbuterol, sulfites, other medicines, foods, dyes, or preservatives or trying to get breast-feeding What should I watch for while using this medicine? Tell your doctor or health direct care supervisor if your symptoms do not improve. Do not use extra albuterol. If your asthma or bronchitis gets worse while you are using this medicine, call your doctor right away. If your mouth gets dry try chewing sugarless gum or sucking hard candy. Drink water as directed. Hydroxyzine Pamoate Oral capsule What is this medicine? HYDROXYZINE (john DROX i zeen) is an antihistamine. This medicine is used to treat allergy symptoms. It is also used to treat anxiety and tension. This medicine can be used with other medicines to induce sleep before surgery. How should I use this medicine? Take this medicine by mouth with a full glass of water. Follow the directions on the prescription label. You may take this medicine with food or on an empty stomach. Take your medicine at regular intervals. Do not take your medicine more often than directed. Talk to your poultry field service technician regarding the use of this medicine in children. Special care may be needed. While this drug may be prescribed for children as young as 6 years of age for selected conditions, precautions do apply. Patients over 65 years old may have a stronger reaction and need a smaller dose. What side effects may I notice from receiving this medicine? Side effects that you should report to your doctor or health direct care supervisor as soon as possible: fast or irregular heartbeat difficulty passing urine seizures slurred speech or confusion tremor Side effects that usually do not require medical attention (report to your doctor or health direct care supervisor if they continue or are bothersome): constipation drowsiness fatigue headache stomach upset What may interact with this medicine? alcohol barbiturate medicines for sleep or seizures medicines for colds, allergies medicines for depression, anxiety, or emotional disturbances medicines for pain medicines for sleep muscle relaxants What if I miss a dose? If you miss a dose, take it as soon as you can. If it is almost time for your next dose, take only that dose. Do not take double or extra doses. Where should I keep my medicine? Keep out of the reach of children. Store at room temperature between 15 and 30 degrees C (59 and 86 degrees F). Keep container tightly closed. Throw away any unused medicine after the expiration date. What should I tell my health care provider before I take this medicine? They need to know if you have any of these conditions: any chronic illness difficulty passing urine glaucoma heart disease kidney disease liver disease lung disease an unusual or allergic reaction to hydroxyzine, cetirizine, other medicines, foods, dyes, or preservatives or trying to get breast-feeding What should I watch for while using this medicine? Tell your doctor or health direct care supervisor if your symptoms do not improve. You may get drowsy or dizzy. Do not drive, use machinery, or do anything that needs mental alertness until you know how this medicine affects you. Do not stand or sit up quickly, especially if you are an older patient. This reduces the risk of dizzy or fainting spells. Alcohol may interfere with the effect of this medicine. Avoid alcoholic drinks. Your mouth may get dry. Chewing sugarless gum or sucking hard candy, and drinking plenty of water may help. Contact your doctor if the problem does not go away or is severe. This medicine may cause dry eyes and blurred vision. If you wear contact lenses you may feel some discomfort. Lubricating drops may help. See your eye doctor if the problem does not go away or is severe. If you are receiving skin tests for allergies, tell your doctor you are using this medicine. You have been given the following additional information: Schizophrenia, General Drug Abuse Ranitidine Hydrochloride Oral tablet Albuterol Sulfate Pressurized inhalation, suspension Hydroxyzine Pamoate Oral capsule (Electronically signed by Chandan Esparza DO 07/08/2016 13:35)
--- NOTE | 2016-07-08 16:27 | ED DISCHARGE INSTRUCTIONS ---
Patient: SILVIA ESPARZA General Instructions [facility] VisitID: [id number] [place] [address] 41y, F Registration Date/Time: 07/08/2016 Medication refill. 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 INSTRUCTIONS Drink plenty of fluids. Do not smoke. No alcohol. Warnings: Further evaluation is necessary (YOU NEED TO SEE YOUR DOCTOR TOMORROW - WE HAVE GIVEN YOU BUS PASSES IF YOU HAVE ANY TRANSPORTATION CONCERNS). It is very important to follow up with a physician. GENERAL WARNINGS: Return or contact your physician immediately if your condition worsens or changes unexpectedly, if not improving as expected, or if other problems arise. Your Current Medications: CONTINUE TAKING THE FOLLOWING MEDICATIONS: Albuterol Sulfate Inhalation. HydrOXYzine Pamoate Oral. Invega Oral. Lidocain oral*. Prazosin HCl Oral. Ranitidine Acid Visitor Use Assistant Oral. Prescription Medications: Ranitidine 150 mg tablets: take 1 orally every 12 hours. Dispense thirty (30). No refills. Albuterol HFA oral inhaler: inhale 1 to 2 puffs every four to six hours as needed for difficulty breathing. Dispense one (1) unit. No refills. (with spacer) Prazosin 1 mg: Take 1 orally every 12 hours. Dispense thirty (30). No refills. Hydroxyzine 50 mg: Take 1 orally every 6 hours as needed for anxiety. Dispense twenty (20). No refills. Invega 6 mg Disp # 7 sig 1 po QD. Follow-up with: [facility], , [address] [place] [address], [place] [address] Follow up tomorrow. Call for the next available appointment. Reason for referral: AN APPOINTMENT HAS BEEN MADE FOR YOU FOR 10:45 AM TOMORROW - PLEASE ARRIVE 15 MIN EARLY. ADDITIONAL INFORMATION Schizophrenia [General Type] Schizophrenia is a chronic, severe and disabling brain disorder. The cause of schizophrenia is not yet known. It is believed to be a result of genetic and biological factors (brain chemistry and structure). Schizophrenia does run in families and occurs in about 1% of the adult population. Symptoms include: Hallucinations (seeing or hearing things that are not there) Delusions (false beliefs) Disorganized thinking and speech Social withdrawal Severe anxiety Feeling unreal Medicines and therapy can help with many of the symptoms and allow for better daily function and quality of life. These medicines take 2-4 weeks to begin working and 6-8 weeks to take full effect. It is common to feel that you are not ill and that you don't need treatment. It is important to accept the support of friends and family in continuing to take your medicine. Home Care: Be sure to take your medicine as directed even if you think you dont need it. Seek support from friends or family by talking about your feelings and thoughts. Follow Up with your doctor or therapist as advised by our staff. For more information, contact The [employer] [place] [employer] Mental [employer]ness 145-742-3054 www.tacos.org Get Prompt Medical Attention if any of the following occur: Feeling like your symptoms are getting worse Feeling out of control or that you are being controlled by others Feeling like you want to harm yourself or another Unable to care for yourself Worsening hallucinations (hearing voices) Worsening depression or anxiety Drug Abuse Use and abuse of such drugs as marijuana, amphetamines (speed, crank), cocaine, heroin or prescription pain medicines (Vicodin, codeine), sedatives and sleeping pills (Valium, Klonopin), PCP, mescaline and LSD may lead to addiction or dependence. Once this occurs, you are at greater risk for any of the following: Craving for the drug and unable to stop using the drug even though you think you want to stop (psychological dependence) Drug withdrawal symptoms if you stop taking the drug (physical dependence) Loss of your job or your family Arrest, conviction and penitentiary sentence for possession of an illegal substance or for driving under the influence of such a substance Accidental injuries to yourself or others while you are under the influence of the drug (in a car or at home). HIV infection (much greater risk if you use IV drugs) Other sexually transmitted diseases (herpes, chlamydia, gonorrhea and others) Severe and fatal infection of the heart valves (if you use IV drugs) Stroke, heart attack, hepatitis B or C, kidney failure from overdose Home Care: Admit you have a drug problem. Ask for help from your family and close friends. Seek professional help. This could be in the form of individual psychotherapy or counseling or an outpatient, inpatient, or residential drug treatment program. Join a self-help group for drug abuse. Avoid friends who abuse drugs themselves or tempt you to continue abusing drugs. Eat a balanced diet and begin a regular exercise program. Follow Up with your doctor or as advised by our staff. Contact one of the resources below for help. National [place] on Alcoholism and Drug Dependence www.ncadd.org 985-863-GNTI Narcotics Anonymous www.na.org 407-847-2883 [employer] Substance Abuse Information [facility] (for referral to treatment programs) www.Eventfinda 334-812-9009 Get Prompt Medical Attention if any of the following occur: Agitation, anxiety, unable to sleep Unintended weight loss (more than 10 to 15 pounds over 3 months) Seizure Chest pain Fever of 100.4F (38C) or higher, or as directed by your healthcare provider Excess drowsiness or inability to be awakened Shortness of breath Slow breathing under 8 breaths per minute Cough with colored sputum Redness, swelling or tenderness at an injection site Ranitidine Hydrochloride Oral tablet What is this medicine? RANITIDINE (ra BENJAMIN boyd) is a type of antihistamine that blocks the release of stomach acid. It is used to treat stomach or intestinal ulcers. It can relieve ulcer pain and discomfort, and the heartburn from acid reflux. How should I use this medicine? Take this medicine by mouth with a glass of water. Follow the directions on the prescription label. If you only take this medicine once a day, take it at bedtime. Take your medicine at regular intervals. Do not take your medicine more often than directed. Do not stop taking except on your doctor's advice. Talk to your cia agent regarding the use of this medicine in children. Special care may be needed. What side effects may I notice from receiving this medicine? Side effects that you should report to your doctor or health career development coordinator/teacher as soon as possible: agitation, nervousness, depression, hallucinations allergic reactions like skin rash, itching or hives, swelling of the face, lips, or tongue breast enlargement in both males and females breathing problems redness, blistering, peeling or loosening of the skin, including inside the mouth unusual bleeding or bruising unusually weak or tired vomiting yellowing of the skin or eyes Side effects that usually do not require medical attention (report to your doctor or health career development coordinator/teacher if they continue or are bothersome): constipation or diarrhea dizziness headache nausea What may interact with this medicine? atazanavir delavirdine gefitinib glipizide ketoconazole midazolam procainamide propantheline triazolam warfarin What if I miss a dose? If you miss a dose, take it as soon as you can. If it is almost time for your next dose, take only that dose. Do not take double or extra doses. Where should I keep my medicine? Keep out of the reach of children. Store at room temperature between 15 and 30 degrees C (59 and 86 degrees F). Protect from light and moisture. Keep container tightly closed. Throw away any unused medicine after the expiration date. What should I tell my health care provider before I take this medicine? They need to know if you have any of these conditions: kidney disease liver disease porphyria an unusual or allergic reaction to ranitidine, other medicines, foods, dyes, or preservatives or trying to get breast-feeding What should I watch for while using this medicine? Tell your doctor or health career development coordinator/teacher if your condition does not start to get better or gets worse. You may need to take this medicine for several days as prescribed before your symptoms get better. Finish the full course of tablets prescribed, even if you feel better. Do not smoke cigarettes or drink alcohol. These increase irritation in your stomach and can lengthen the time it will take for ulcers to heal. Cigarettes and alcohol can also make acid reflux or heartburn worse. If you get black, tarry stools or vomit up what looks like coffee grounds, call your doctor or health career development coordinator/teacher at once. You may have a bleeding ulcer. Albuterol Sulfate Pressurized inhalation, suspension What is this medicine? ALBUTEROL (al BYOO ter ole) is a bronchodilator. It helps open up the airways in your lungs to make it easier to breathe. This medicine is used to treat and to prevent bronchospasm. How should I use this medicine? This medicine is for inhalation through the mouth. Follow the directions on your prescription label. Take your medicine at regular intervals. Do not use more often than directed. Make sure that you are using your inhaler correctly. Ask you doctor or health care provider if you have any questions. Talk to your cia agent regarding the use of this medicine in children. Special care may be needed. What side effects may I notice from receiving this medicine? Side effects that you should report to your doctor or health career development coordinator/teacher as soon as possible: allergic reactions like skin rash, itching or hives, swelling of the face, lips, or tongue breathing problems chest pain feeling faint or lightheaded, falls high blood pressure irregular heartbeat fever muscle cramps or weakness pain, tingling, numbness in the hands or feet vomiting Side effects that usually do not require medical attention (report to your doctor or health career development coordinator/teacher if they continue or are bothersome): cough difficulty sleeping headache nervousness or trembling stomach upset stuffy or runny nose throat irritation unusual taste What may interact with this medicine? anti-infectives like chloroquine and pentamidine caffeine cisapride diuretics medicines for colds medicines for depression or for emotional or psychotic conditions medicines for weight loss including some herbal products methadone some antibiotics like clarithromycin, erythromycin, levofloxacin, and linezolid some heart medicines steroid hormones like dexamethasone, cortisone, hydrocortisone theophylline thyroid hormones What if I miss a dose? If you miss a dose, use it as soon as you can. If it is almost time for your next dose, use only that dose. Do not use double or extra doses. Where should I keep my medicine? Keep out of the reach of children. Store at room temperature between 15 and 30 degrees C (59 and 86 degrees F). The contents are under pressure and may burst when exposed to heat or flame. Do not freeze. This medicine does not work as well if it is too cold. Throw away any unused medicine after the expiration date. Inhalers need to be thrown away after the labeled number of puffs have been used or by the expiration date; whichever comes first. Ventolin HFA should be thrown away 12 months after removing from foil pouch. Check the instructions that come with your medicine. What should I tell my health care provider before I take this medicine? They need to know if you have any of the following conditions: diabetes heart disease or irregular heartbeat high blood pressure pheochromocytoma seizures thyroid disease an unusual or allergic reaction to albuterol, levalbuterol, sulfites, other medicines, foods, dyes, or preservatives or trying to get breast-feeding What should I watch for while using this medicine? Tell your doctor or health career development coordinator/teacher if your symptoms do not improve. Do not use extra albuterol. If your asthma or bronchitis gets worse while you are using this medicine, call your doctor right away. If your mouth gets dry try chewing sugarless gum or sucking hard candy. Drink water as directed. Hydroxyzine Pamoate Oral capsule What is this medicine? HYDROXYZINE (john DROX i zeen) is an antihistamine. This medicine is used to treat allergy symptoms. It is also used to treat anxiety and tension. This medicine can be used with other medicines to induce sleep before surgery. How should I use this medicine? Take this medicine by mouth with a full glass of water. Follow the directions on the prescription label. You may take this medicine with food or on an empty stomach. Take your medicine at regular intervals. Do not take your medicine more often than directed. Talk to your cia agent regarding the use of this medicine in children. Special care may be needed. While this drug may be prescribed for children as young as 6 years of age for selected conditions, precautions do apply. Patients over 65 years old may have a stronger reaction and need a smaller dose. What side effects may I notice from receiving this medicine? Side effects that you should report to your doctor or health career development coordinator/teacher as soon as possible: fast or irregular heartbeat difficulty passing urine seizures slurred speech or confusion tremor Side effects that usually do not require medical attention (report to your doctor or health career development coordinator/teacher if they continue or are bothersome): constipation drowsiness fatigue headache stomach upset What may interact with this medicine? alcohol barbiturate medicines for sleep or seizures medicines for colds, allergies medicines for depression, anxiety, or emotional disturbances medicines for pain medicines for sleep muscle relaxants What if I miss a dose? If you miss a dose, take it as soon as you can. If it is almost time for your next dose, take only that dose. Do not take double or extra doses. Where should I keep my medicine? Keep out of the reach of children. Store at room temperature between 15 and 30 degrees C (59 and 86 degrees F). Keep container tightly closed. Throw away any unused medicine after the expiration date. What should I tell my health care provider before I take this medicine? They need to know if you have any of these conditions: any chronic illness difficulty passing urine glaucoma heart disease kidney disease liver disease lung disease an unusual or allergic reaction to hydroxyzine, cetirizine, other medicines, foods, dyes, or preservatives or trying to get breast-feeding What should I watch for while using this medicine? Tell your doctor or health career development coordinator/teacher if your symptoms do not improve. You may get drowsy or dizzy. Do not drive, use machinery, or do anything that needs mental alertness until you know how this medicine affects you. Do not stand or sit up quickly, especially if you are an older patient. This reduces the risk of dizzy or fainting spells. Alcohol may interfere with the effect of this medicine. Avoid alcoholic drinks. Your mouth may get dry. Chewing sugarless gum or sucking hard candy, and drinking plenty of water may help. Contact your doctor if the problem does not go away or is severe. This medicine may cause dry eyes and blurred vision. If you wear contact lenses you may feel some discomfort. Lubricating drops may help. See your eye doctor if the problem does not go away or is severe. If you are receiving skin tests for allergies, tell your doctor you are using this medicine. You have been given the following additional information: Schizophrenia, General Drug Abuse Ranitidine Hydrochloride Oral tablet Albuterol Sulfate Pressurized inhalation, suspension Hydroxyzine Pamoate Oral capsule (Electronically signed by Cahndan Esparza DO 07/08/2016 13:35)
--- NOTE | 2016-07-08 16:27 | ED MED RECONCILIATION SUMMARY ---
Patient: SILVIA ESPARZA Medication Reconciliation Report [facility] VisitID: [id number] [address] [place] [address] 41y, F Registration Date/Time: 07/08/2016 Weight: 58.9 kg Height/Length: 61 in. BMI: 24.5 ALLERGIES: Compazine, Gabapentin, morphine, Phenergan, Vancomycin, Vicodin The patient's Home Medications are listed below: CONTINUE TAKING THE FOLLOWING MEDICATIONS: Albuterol Sulfate Inhalation HydrOXYzine Pamoate Oral Invega Oral Lidocain oral Prazosin HCl Oral Ranitidine Acid Sas Programmer Remote Oral The source(s) of the original Home Medication information: Not obtained. The following Medications were given to the patient in the Emergency Department: None. The following Medications were prescribed to the patient: Ranitidine 150 mg tablets: take 1 orally every 12 hours. Dispense thirty (30). No refills. -- Chandan Esparza DO Albuterol HFA oral inhaler: inhale 1 to 2 puffs every four to six hours as needed for difficulty breathing. Dispense one (1) unit. No refills.(with spacer) -- Chandan Esparza DO Invega 6 mgDisp # 7sig 1 po QD. -- Chandan Esparza DO Prazosin 1 mg: Take 1 orally every 12 hours. Dispense thirty (30). No refills. -- Chandan Esparza DO Hydroxyzine 50 mg: Take 1 orally every 6 hours as needed for anxiety. Dispense twenty (20). No refills. -- Chandan Esparza DO
== END 2016-07-08 11:54 | disposition home or self-care (01) ==
LOC: ED SRH 11:21
DX: F20.1 Disorganized schizophrenia (principal); F15.180 Other stimulant abuse with stimulant-induced anxiety disorder; Z79.899 Other long term (current) drug therapy; Z87.891 Personal history of nicotine dependence; Z88.5 Allergy status to narcotic agent; Z88.1 Allergy status to other antibiotic agents; Z88.8 Allergy status to other drugs, medicaments and biological substances

== ENCOUNTER 2016-07-25 08:16 | Emergency (ER) | payer OTHER ==
--- NOTE | 2016-07-25 08:46 | ED ORDER SUMMARY ---
..... Patient: SILVIA ESPARZA OrderSheet [facility] VisitID: [id number] [address] [place] [address] 41y, F Registration Date/Time: 07/25/2016 ORDER SHEET Weight: 63.5 kg (stated) Allergies: Compazine, Gabapentin, morphine, Phenergan, Vancomycin, Vicodin GENERAL ORDERS: MEDICATION ORDERS: Toradol IM 60 mg (NOW) (08:40 07/25/2016 Bia David) (Ack 8:42 MWinterer R.N.) (8:47 MWinterer R.N.) IV FLUIDS: ORDER SHEET NOTES: [Electronically signed by Salomón Martinez Dr. (08:49 07/25/2016)] [Electronically signed by Johnna Marin R.N. (10:45 07/25/2016)] [Electronically locked/signed by Johnna Marin R.N. (10:45 07/25/2016)]
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
--- NOTE | 2016-07-25 08:46 | ED ORDER SUMMARY ---
..... Patient: SILVIA ESPARZA OrderSheet [facility] VisitID: [id number] [address] [place] [address] 41y, F Registration Date/Time: 07/25/2016 ORDER SHEET Weight: 63.5 kg (stated) Allergies: Compazine, Gabapentin, morphine, Phenergan, Vancomycin, Vicodin GENERAL ORDERS: MEDICATION ORDERS: Toradol IM 60 mg (NOW) (08:40 07/25/2016 Bia David) (Ack 8:42 MWinterer R.N.) (8:47 MWinterer R.N.) IV FLUIDS: ORDER SHEET NOTES: [Electronically signed by Salomón Martinez Dr. (08:49 07/25/2016)] [Electronically signed by Johnna Marin R.N. (10:45 07/25/2016)] [Electronically locked/signed by Johnna Marin R.N. (10:45 07/25/2016)]
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
--- NOTE | 2016-07-25 10:45 | ED MAR SUMMARY ---
..... Medication Administration Record [facility] [address] [place] [address] Patient: SILVIA ESPARZA Visit ID: [id number] 41y, F Weight: 63.5 kg Height/Length: 61 in BMI: 26.5 ALLERGIES: Compazine, Gabapentin, morphine, Phenergan, Vancomycin, Vicodin Given 08:47 07/25/2016 Johnna Marin R.N. Medication Administered: TORADOL [IM] (KETOROLAC TROMETHAMINE), Dose: 60 mg IM. Medication Ordered: Toradol IM 60 mg (NOW).
--- NOTE | 2016-07-25 10:45 | ED MED RECONCILIATION SUMMARY ---
Patient: SILVIA ESPARZA Medication Reconciliation Report [facility] VisitID: [id number] [address] [place] [address] 41y, F Registration Date/Time: 07/25/2016 Weight: 63.5 kg Height/Length: 61 in. BMI: 26.5 ALLERGIES: Compazine, Gabapentin, morphine, Phenergan, Vancomycin, Vicodin The patient's Home Medications are listed below: CONTINUE TAKING THE FOLLOWING MEDICATIONS: Albuterol Sulfate Inhalation HydrOXYzine Pamoate Oral Invega Oral Lidocain oral Prazosin HCl Oral Ranitidine Acid Grab Hooker Oral The source(s) of the original Home Medication information: patient The following Medications were given to the patient in the Emergency Department: Toradol [IM] IM 60 mg, administered: 07/25/2016 8:47:00 AM The following Medications were prescribed to the patient: Baclofen 10 mg: take 1 orally every 8 hours. Dispense thirty (30). No refills. -- Salomón Martinez Dr. Diclofenac 50 mg tablets: take 1 tablet orally every 8 hours as needed for pain or stiffness. Dispense thirty (30). No refill. -- Salomón Martinez Dr.
--- NOTE | 2016-07-25 10:45 | ED DISCHARGE INSTRUCTIONS ---
Patient: SILVIA ESPARZA General Instructions 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 INSTRUCTIONS (Stop using drugs, it is killing you.). Your Current Medications: CONTINUE TAKING THE FOLLOWING MEDICATIONS: Albuterol Sulfate Inhalation. HydrOXYzine Pamoate Oral. Invega Oral. Lidocain oral*. Prazosin HCl Oral. Ranitidine Acid Product Handler Oral. Prescription Medications: Baclofen 10 mg: take 1 orally every 8 hours. Dispense thirty (30). No refills. Diclofenac 50 mg tablets: take 1 tablet orally every 8 hours as needed for pain or stiffness. Dispense thirty (30). No refill. Follow-up: Screening today revealed the patient's blood pressure to be in the normal range. Follow-up with: [facility], , , , , , Follow up in about two days. Call for an appointment. ADDITIONAL INFORMATION TMJ Syndrome This is a condition with chronic or recurrent pain in the joint of the jaw (in front of the ear). The pain may cause limited motion of the jaw, a locking or catching sensation, clicking, popping or grinding sounds from the joint with movement. It may also lead to headache, earache or neck pain. It is sometimes caused by inflammation in the joint, injury or [id number] of the cartilage in the joint, involuntary grinding of the teeth or poorly fitting dentures. Emotional stress and tension are often a factor. Most cases resolve completely within a few months with proper treatment. Home Care: 1) Rest the jaw by avoiding crunchy or hard foods to chew. Do not eat hard or sticky candies. Soft foods and liquids are easier on the jaw. Protect your jaw while yawning. 2) Hot packs (small towel soaked in hot water) applied to the jaw may give relief by reducing muscle spasm. You may use a heating pad or a towel soaked in hot water. Some people get relief with cold packs, so try both and see which one works best for you. 3) You may use acetaminophen (Tylenol) or ibuprofen (Motrin, Advil) to control pain, unless another medicine was prescribed. [ NOTE : If you have chronic liver or kidney disease or ever had a stomach ulcer or GI bleeding, talk with your doctor before using these medicines.] 4) If you suspect emotional stress is related to your condition. a) Try to identify the sources of stress in your life. It may not be obvious! These may include: -- Daily hassles of life that pile up (traffic jams, missed appointments, car troubles) -- Major life changes, both good (new baby, job promotion) and bad (loss of job, loss of loved one) -- Overload: feeling that you have too many responsibilities and can't take care of everything at once -- Helplessness: feeling like your problems are more than you can solve b) When possible, do something about the source of your stress: avoid hassles, limit the amount of change that is happening in your life at one time and take a break when you feel overloaded. c) Unfortunately, many stressful situations cannot be avoided. Therefore, it is necessary to learn HOW TO MANAGE STRESS better. There are many proven methods that work and will reduce your anxiety. These include simple things like exercise, good nutrition and adequate rest. Also, there are certain techniques that are helpful: relaxation and breathing exercises, visualization, biofeedback, meditation or simply taking some time-out to clear your mind. For more information about this, consult your doctor or go to a local bookstore and review the many books and tapes available on this subject. Follow-Up as directed with a dentist or oral surgeon. Further testing and additional treatment may be required. If you grind your teeth at night, a custom-made "bite guard" may help you. If stress is an important factor and does not respond to the above simple measures, talk to your doctor about a referral for stress management. Get Prompt Medical Attention if any of the following occur: -- Your face becomes swollen or red -- Pain worsens -- 100.0F (37.8C) -- Increasing neck, mouth, tooth or throat pain You have been given the following additional information: TMJ Syndrome (Electronically signed by Salomón Martinez Dr. 07/25/2016 8:49)
--- NOTE | 2016-07-25 10:45 | ED MAR SUMMARY ---
..... Medication Administration Record [facility] [address] [place] [address] Patient: SILVIA ESPARZA Visit ID: [id number] 41y, F Weight: 63.5 kg Height/Length: 61 in BMI: 26.5 ALLERGIES: Compazine, Gabapentin, morphine, Phenergan, Vancomycin, Vicodin Given 08:47 07/25/2016 Johnna Marin R.N. Medication Administered: TORADOL [IM] (KETOROLAC TROMETHAMINE), Dose: 60 mg IM. Medication Ordered: Toradol IM 60 mg (NOW).
--- NOTE | 2016-07-25 10:45 | ED MED RECONCILIATION SUMMARY ---
Patient: SILVIA ESPARZA Medication Reconciliation Report [facility] VisitID: [id number] [address] [place] [address] 41y, F Registration Date/Time: 07/25/2016 Weight: 63.5 kg Height/Length: 61 in. BMI: 26.5 ALLERGIES: Compazine, Gabapentin, morphine, Phenergan, Vancomycin, Vicodin The patient's Home Medications are listed below: CONTINUE TAKING THE FOLLOWING MEDICATIONS: Albuterol Sulfate Inhalation HydrOXYzine Pamoate Oral Invega Oral Lidocain oral Prazosin HCl Oral Ranitidine Acid Well Head Pumper Oral The source(s) of the original Home Medication information: patient The following Medications were given to the patient in the Emergency Department: Toradol [IM] IM 60 mg, administered: 07/25/2016 8:47:00 AM The following Medications were prescribed to the patient: Baclofen 10 mg: take 1 orally every 8 hours. Dispense thirty (30). No refills. -- Salomón Martinez Dr. Diclofenac 50 mg tablets: take 1 tablet orally every 8 hours as needed for pain or stiffness. Dispense thirty (30). No refill. -- Salomón Martinez Dr.
--- NOTE | 2016-07-25 10:45 | ED DISCHARGE INSTRUCTIONS ---
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 INSTRUCTIONS (Stop using drugs, it is killing you.). Your Current Medications: CONTINUE TAKING THE FOLLOWING MEDICATIONS: Albuterol Sulfate Inhalation. HydrOXYzine Pamoate Oral. Invega Oral. Lidocain oral*. Prazosin HCl Oral. Ranitidine Acid Wireless Telegrapher Oral. Prescription Medications: Baclofen 10 mg: take 1 orally every 8 hours. Dispense thirty (30). No refills. Diclofenac 50 mg tablets: take 1 tablet orally every 8 hours as needed for pain or stiffness. Dispense thirty (30). No refill. Follow-up: Screening today revealed the patient's blood pressure to be in the normal range. Follow-up with: [facility], , , , , , Follow up in about two days. Call for an appointment. ADDITIONAL INFORMATION TMJ Syndrome This is a condition with chronic or recurrent pain in the joint of the jaw (in front of the ear). The pain may cause limited motion of the jaw, a locking or catching sensation, clicking, popping or grinding sounds from the joint with movement. It may also lead to headache, earache or neck pain. It is sometimes caused by inflammation in the joint, injury or [id number]-[id number] of the cartilage in the joint, involuntary grinding of the teeth or poorly fitting dentures. Emotional stress and tension are often a factor. Most cases resolve completely within a few months with proper treatment. Home Care: 1) Rest the jaw by avoiding crunchy or hard foods to chew. Do not eat hard or sticky candies. Soft foods and liquids are easier on the jaw. Protect your jaw while yawning. 2) Hot packs (small towel soaked in hot water) applied to the jaw may give relief by reducing muscle spasm. You may use a heating pad or a towel soaked in hot water. Some people get relief with cold packs, so try both and see which one works best for you. 3) You may use acetaminophen (Tylenol) or ibuprofen (Motrin, Advil) to control pain, unless another medicine was prescribed. [ NOTE : If you have chronic liver or kidney disease or ever had a stomach ulcer or GI bleeding, talk with your doctor before using these medicines.] 4) If you suspect emotional stress is related to your condition. a) Try to identify the sources of stress in your life. It may not be obvious! These may include: -- Daily hassles of life that pile up (traffic jams, missed appointments, car troubles) -- Major life changes, both good (new baby, job promotion) and bad (loss of job, loss of loved one) -- Overload: feeling that you have too many responsibilities and can't take care of everything at once -- Helplessness: feeling like your problems are more than you can solve b) When possible, do something about the source of your stress: avoid hassles, limit the amount of change that is happening in your life at one time and take a break when you feel overloaded. c) Unfortunately, many stressful situations cannot be avoided. Therefore, it is necessary to learn HOW TO MANAGE STRESS better. There are many proven methods that work and will reduce your anxiety. These include simple things like exercise, good nutrition and adequate rest. Also, there are certain techniques that are helpful: relaxation and breathing exercises, visualization, biofeedback, meditation or simply taking some time-out to clear your mind. For more information about this, consult your doctor or go to a local bookstore and review the many books and tapes available on this subject. Follow-Up as directed with a dentist or oral surgeon. Further testing and additional treatment may be required. If you grind your teeth at night, a custom-made "bite guard" may help you. If stress is an important factor and does not respond to the above simple measures, talk to your doctor about a referral for stress management. Get Prompt Medical Attention if any of the following occur: -- Your face becomes swollen or red -- Pain worsens -- 100.0F (37.8C) -- Increasing neck, mouth, tooth or throat pain You have been given the following additional information: TMJ Syndrome (Electronically signed by Salomón Martinez Dr. 07/25/2016 8:49)
== END 2016-07-25 09:00 | disposition home or self-care (01) ==
LOC: ED SRH 08:16
DX: M26.603 Bilateral temporomandibular joint disorder, unspecified (principal); F19.10 Other psychoactive substance abuse, uncomplicated; G89.29 Other chronic pain

== ENCOUNTER 2016-07-29 11:37 | Emergency (ER) | payer OTHER ==
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
--- NOTE | 2016-07-29 12:34 | ED ORDER SUMMARY ---
..... Patient: SILVIA ESPARZA OrderSheet VisitID: [id number] [address] [place] [address] 41y, F Registration Date/Time: 07/29/2016 ORDER SHEET Weight: 59.8 kg (estimated) Allergies: Compazine, Gabapentin, morphine, Phenergan, Vancomycin, Vicodin GENERAL ORDERS: Culture, Strep Screen Urgent (11:50 07/29/2016 Champ David) (11:58 Margarito Merritt) MEDICATION ORDERS: IV FLUIDS: ORDER SHEET NOTES: [Electronically signed by Flakito Hubbard Dr. (13:15 07/29/2016)] [Electronically signed by Mariajose iWse R.N. (06:50 08/03/2016)] [Electronically locked/signed by Mariajose Wise R.N. (06:50 08/03/2016)]
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
--- NOTE | 2016-07-29 12:34 | ED ORDER SUMMARY ---
..... Patient: SILVIA ESPARZA OrderSheet [facility] VisitID: [id number] [address] [place] [address] 41y, F Registration Date/Time: 07/29/2016 ORDER SHEET Weight: 59.8 kg (estimated) Allergies: Compazine, Gabapentin, morphine, Phenergan, Vancomycin, Vicodin GENERAL ORDERS: Culture, Strep Screen Urgent (11:50 07/29/2016 Champ David) (11:58 Margarito Merritt) MEDICATION ORDERS: IV FLUIDS: ORDER SHEET NOTES: [Electronically signed by Flakito Hubbard Dr. (13:15 07/29/2016)] [Electronically signed by Mariajose Wise R.N. (06:50 08/03/2016)] [Electronically locked/signed by Mariajose Wise R.N. (06:50 08/03/2016)]
--- NOTE | 2016-08-03 06:50 | ED DISCHARGE INSTRUCTIONS ---
Patient: SILVIA ESPARZA General Instructions [facility] VisitID: [id number] [place] [address] 41y, F Registration Date/Time: 07/29/2016 Acute viral pharyngitis INSTRUCTIONS Warnings: GENERAL WARNINGS: Return or contact your physician immediately if your condition worsens or changes unexpectedly, if not improving as expected, or if other problems arise. Specifically return if pain, vomiting, bleeding, breathing difficulty or fever. Your Current Medications: CONTINUE TAKING THE FOLLOWING MEDICATIONS: Albuterol Sulfate Inhalation. HydrOXYzine Pamoate Oral. Invega Oral. Lidocain oral*. Prazosin HCl Oral. Ranitidine Acid Immigration Specialist Oral. Prescription Medications: Viscous lidocaine 2%. Gargle, swish, and spit every 4 hours as needed for pain. Disp 1 bottle. No refill. Substitution allowed. Follow-up: Return to the emergency department as needed. Follow up with your doctor tomorrow. Reason for referral: recheck today's concerns. Summary of care provided to patient via paper. Screening today revealed the patient's blood pressure to be in the normal range. The patient should follow up with a primary care provider for blood pressure management. Understanding of the discharge instructions verbalized by patient. ADDITIONAL INFORMATION Viral Pharyngitis (Sore Throat) Your throat pain is due to an infection called "Viral Pharyngitis", commonly known as "Sore Throat". This is a contagious illness. It is spread through the air by coughing, kissing or by touching others after touching your mouth or nose. Symptoms include throat pain worse with swallowing, aching all over, headache and fever. Unlike strep throat, which is a bacterial infection, this illness does not require treatment with an antibiotic. Home Care: If your symptoms are severe, rest at home for the first 2-3 days. Children: Use acetaminophen (Tylenol) for fever, fussiness or discomfort. In infants over six months of age, you may use ibuprofen (Children's Motrin) instead of Tylenol. [NOTE: If your child has chronic liver or kidney disease or ever had a stomach ulcer or GI bleeding, talk with your tabby doctor before using these medicines.] (Aspirin should never be used in anyone under 18 years of age who is ill with a fever. It may cause severe liver damage.) Adults: You may use acetaminophen (Tylenol) or ibuprofen (Motrin, Advil) to control pain or fever, unless another medicine was prescribed. [NOTE: If you have chronic liver or kidney disease or ever had a stomach ulcer or GI bleeding, talk with your doctor before using these medicines.] Throat lozenges or sprays (Chloraseptic and others) will reduce pain. Gargling with warm salt water will also reduce throat pain. Dissolve 1/2 teaspoon of salt in 1 glass of warm water. This is especially useful just before meals. Follow Up with your doctor or as directed by our staff if you are not improving over the next week. Get Prompt Medical Attention if any of the following occur: Fever over 100.5F (38.0C) oral, or over 101.5F (38.6C) rectal for more than three days New or worsening ear pain, sinus pain or headache Painful lumps in the back of your neck Unable to swallow liquids or open your mouth wide due to throat pain Trouble breathing or noisy breathing Muffled voice New rash You have been given the following additional information: Pharyngitis, Viral (Electronically signed by Flakito Hubbard Dr. 07/29/2016 13:15)
--- NOTE | 2016-08-03 06:50 | ED MAR SUMMARY ---
..... Medication Administration Record [facility] [address] [place] [address] Patient: SILVIA ESPARZA Visit ID: [id number] 41y, F Weight: 59.8 kg Height/Length: 62 in BMI: 24.1 ALLERGIES: Compazine, Gabapentin, morphine, Phenergan, Vancomycin, Vicodin
--- NOTE | 2016-08-03 06:50 | ED MAR SUMMARY ---
..... Medication Administration Record [facility] [address] [place] [address] Patient: SILVIA ESPARZA Visit ID: [id number] 41y, F Weight: 59.8 kg Height/Length: 62 in BMI: 24.1 ALLERGIES: Compazine, Gabapentin, morphine, Phenergan, Vancomycin, Vicodin
--- NOTE | 2016-08-03 06:50 | ED MED RECONCILIATION SUMMARY ---
Patient: SILVIA ESPARZA Medication Reconciliation Report [facility] VisitID: [id number] [address] [place] [address] 41y, F Registration Date/Time: 07/29/2016 Weight: 59.8 kg Height/Length: 62 in. BMI: 24.1 ALLERGIES: Compazine, Gabapentin, morphine, Phenergan, Vancomycin, Vicodin The patient's Home Medications are listed below: CONTINUE TAKING THE FOLLOWING MEDICATIONS: Albuterol Sulfate Inhalation HydrOXYzine Pamoate Oral Invega Oral Lidocain oral Prazosin HCl Oral Ranitidine Acid Saw Handle Assembler Oral The source(s) of the original Home Medication information: Not obtained. The following Medications were given to the patient in the Emergency Department: None. The following Medications were prescribed to the patient: Viscous lidocaine 2%. Gargle, swish, and spit every 4 hours as needed for pain. Disp 1 bottle. No refill. Substitution allowed. -- Flakito Hubbard Dr.
--- NOTE | 2016-08-03 06:50 | ED MED RECONCILIATION SUMMARY ---
Patient: SILVIA ESPARZA Medication Reconciliation Report [facility] VisitID: [id number] [address] [place] [address] 41y, F Registration Date/Time: 07/29/2016 Weight: 59.8 kg Height/Length: 62 in. BMI: 24.1 ALLERGIES: Compazine, Gabapentin, morphine, Phenergan, Vancomycin, Vicodin The patient's Home Medications are listed below: CONTINUE TAKING THE FOLLOWING MEDICATIONS: Albuterol Sulfate Inhalation HydrOXYzine Pamoate Oral Invega Oral Lidocain oral Prazosin HCl Oral Ranitidine Acid Coffee Break Attendant Oral The source(s) of the original Home Medication information: Not obtained. The following Medications were given to the patient in the Emergency Department: None. The following Medications were prescribed to the patient: Viscous lidocaine 2%. Gargle, swish, and spit every 4 hours as needed for pain. Disp 1 bottle. No refill. Substitution allowed. -- Flakito Hubbard Dr.
== END 2016-07-29 13:34 | disposition home or self-care (01) ==
LOC: ED SRH 11:37
DX: J02.8 Acute pharyngitis due to other specified organisms (principal); B97.89 Other viral agents as the cause of diseases classified elsewhere; F20.9 Schizophrenia, unspecified; Z79.899 Other long term (current) drug therapy; Z88.5 Allergy status to narcotic agent; Z88.1 Allergy status to other antibiotic agents; Z88.8 Allergy status to other drugs, medicaments and biological substances
CPT/HCPCS: 90154; 90159

== ENCOUNTER 2016-07-30 08:16 | Emergency (ER) | payer OTHER ==
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
--- NOTE | 2016-07-31 05:17 | ED ORDER SUMMARY ---
..... Patient: SILVIA ESPARZA OrderSheet [facility] VisitID: [id number] [place] [address] 41y, F Registration Date/Time: 07/30/2016 ORDER SHEET Weight: 63.5 kg (stated) Allergies: Compazine, Gabapentin, morphine, Phenergan, Vancomycin, Vicodin GENERAL ORDERS: Cardiac Panel Stat (09:05 07/30/2016 Peyman CAMPBELL) (Ack 9:06 KHoerner) (9:56 KHoerner) UA-Culture if indicated Urgent (09:05 07/30/2016 Peyman CAMPBELL) (Ack 9:06 VAoerner) (9:56 KHoerner) Urine Urgent (09:07/30/2016 Peyman CAMPBELL) (Ack 9:06 VAoerner) (9:56 KHoerner) Urine Drug Screen Urgent (09:05 07/30/2016 Peyamn CAMPBELL) (Ack 9:06 KHoerner) (9:56 KHoerner) - (drink of water) (09:14 07/30/2016 Peyman CAMPBELL) (9:56 KHoerner) - (4 point restraints) (09:44 07/30/2016 Peyman CAMPBELL) (9:56 KHoerner) - (iron and TIBC , ferritin levels.) (17:46 07/30/2016 Peyman CAMPBELL) (17:53 KHoerner) -- (retic count) (17:47 07/30/2016 Peyman CAMPBELL) (17:53 KHoerner) CPK (new blood draw.) Urgent (03:56 07/31/2016 Brionna CAMPBELL) (Ack 4:19 LMuller) (5:04 LMuller) CT Head wo Cont Urgent (06:11 07/31/2016 Brionna CAMPBELL) (Ack 6:24 LMuller) (6:44 LMuller) CPK Urgent (20:52 07/31/2016 [place] Apparelyvonne ER Gas Welding Equipment Mechanic verbal order read back to Peyman CAMPBELL) (20:57 CHagyvonne ER Gas Welding Equipment Mechanic) MEDICATION ORDERS: Alprazolam PO 0.5 mg (NOW) (09:13 07/30/2016 Peyman CAMPBELL) (Ack 9:33 Murray R.N.) (Cancelled: Patient Refusal9:44 Peyman CAMPBELL) Ativan IM 1.5 mg (NOW) (09:44 07/30/2016 Peyman CAMPBELL) (Ack 10:13 Murray R.N.) (Cancelled: Other11:00 Peyman CAMPBELL) Ativan IM 2 mg (HIGH ALERT MEDICATION, NOW) (17:33 07/30/2016 Murray R.N. verbal order read back to Peyman CAMPBELL) (17:43 Murray R.N.) @1625 Haldol IM 5 mg (NOW) (17:40 07/30/2016 Peyman CAMPBELL) (Ack 17:44 Murray R.N.) (17:46 Murray R.N.) IV FLUIDS: Ativan IV 1.5 mg (NOW) (11:00 07/30/2016 Peyman CAMPBELL) (Ack 11:21 Murray R.N.) (12:53 Murray R.N.) IV NS : initial bolus 1000 mL (1000 mL/hr), then none - for X1 (NOW); Routine (11:00 07/30/2016 Peyman CAMPBELL) (11:15 Murray R.N.) IV NS : initial bolus none -, then 500 mL/hr for 4h (NOW) (ie 2 liters of normal saline) (03:55 07/31/2016 Brionna CAMPBELL) (Hold 4:20 HSoule) (5:04 HSoule) ORDER SHEET NOTES: [Electronically signed by Julián Shi R.N. (:08/01/2016)] [Electronically locked/signed by Julián Shi R.N. (:08/01/2016)]
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
--- NOTE | 2016-07-31 05:17 | ED ORDER SUMMARY ---
..... Patient: SILVIA ESPARZA OrderSheet [facility] VisitID: [id number] [place] [address] 41y, F Registration Date/Time: 07/30/2016 ORDER SHEET Weight: 63.5 kg (stated) Allergies: Compazine, Gabapentin, morphine, Phenergan, Vancomycin, Vicodin GENERAL ORDERS: Cardiac Panel Stat (09:05 07/30/2016 Peyman CAMPBELL) (Ack 9:06 KHoerner) (9:56 KHoerner) UA-Culture if indicated Urgent (09:05 07/30/2016 Peyman CAMPBELL) (Ack 9:06 VAoerner) (9:56 KHoerner) Urine Urgent (09:07/30/2016 Peyman CAMPBELL) (Ack 9:06 VAoerner) (9:56 KHoerner) Urine Drug Screen Urgent (09:05 07/30/2016 Peyman CAMPBELL) (Ack 9:06 KHoerner) (9:56 KHoerner) - (drink of water) (09:14 07/30/2016 Peyman CAMPBELL) (9:56 KHoerner) - (4 point restraints) (09:44 07/30/2016 Peyman CAMPBELL) (9:56 KHoerner) - (iron and TIBC , ferritin levels.) (17:46 07/30/2016 Peyman CAMPBELL) (17:53 KHoerner) -- (retic count) (17:47 07/30/2016 Peyman CAMPBELL) (17:53 KHoerner) CPK (new blood draw.) Urgent (03:56 07/31/2016 Brionna CAMPBELL) (Ack 4:19 LMuller) (5:04 LMuller) CT Head wo Cont Urgent (06:11 07/31/2016 Brionna CAMPBELL) (Ack 6:24 LMuller) (6:44 LMuller) CPK Urgent (20:52 07/31/2016 Bringrsyvonne ER Sorting Livestock Worker verbal order read back to Peyman CAMPBELL) (20:57 CHagyvonne ER Sorting Livestock Worker) MEDICATION ORDERS: Alprazolam PO 0.5 mg (NOW) (09:13 07/30/2016 Peyman CAMPBELL) (Ack 9:33 Murray R.N.) (Cancelled: Patient Refusal9:44 Peyman CAMPBELL) Ativan IM 1.5 mg (NOW) (09:44 07/30/2016 Peyman CAMPBELL) (Ack 10:13 Murray R.N.) (Cancelled: Other11:00 Peyman CAMPBELL) Ativan IM 2 mg (HIGH ALERT MEDICATION, NOW) (17:33 07/30/2016 Murray R.N. verbal order read back to Peyman CAMPBELL) (17:43 Murray R.N.) @1625 Haldol IM 5 mg (NOW) (17:40 07/30/2016 Peyman CAMPBELL) (Ack 17:44 Murray R.N.) (17:46 Murray R.N.) IV FLUIDS: Ativan IV 1.5 mg (NOW) (11:00 07/30/2016 Peyman CAMPBELL) (Ack 11:21 Murray R.N.) (12:53 Murray R.N.) IV NS : initial bolus 1000 mL (1000 mL/hr), then none - for X1 (NOW); Routine (11:00 07/30/2016 Peyman CAMPBELL) (11:15 Murray R.N.) IV NS : initial bolus none -, then 500 mL/hr for 4h (NOW) (ie 2 liters of normal saline) (03:55 07/31/2016 Brionna CAMPBELL) (Hold 4:20 HSoule) (5:04 HSoule) ORDER SHEET NOTES: [Electronically signed by Julián Shi R.N. (:08/01/2016)] [Electronically locked/signed by Julián Shi R.N. (:08/01/2016)]
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
--- NOTE | 2016-07-31 06:57 | DIAGNOSTIC IMAGING REPORT ---
PROCEDURE: CT HEAD WITHOUT CONTRAST INDICATION: MENTAL STATUS CHANGE TECHNIQUE: Noncontrast axial images with sagittal and coronal reformations. COMPARISON: Head CT 06/25/2016. FINDINGS: Sulci, ventricular system, and brain parenchyma are normal. No evidence of acute intracranial process. Visualized mastoids and sinuses are clear. No significant interval change. IMPRESSION: 1. Negative non-enhanced head CT. 2. Findings discussed with Dr. Sandoval at 06:56 a.m., [place] Standard Time
--- NOTE | 2016-07-31 07:25 | HISTORY AND PHYSICAL ---
ADMITTED: 07/31/2016 CHIEF COMPLAINT: 1. Change in mental status. HISTORY OF PRESENT ILLNESS: This is a 41-year-old white female who is heavily sedated and is drowsy, so is not able to give any history and no family members or friends around, so all the history was taken from the ED notes and the EMS notes and the medical record. Apparently, she was in the pharmacy and the pharmacy noticed that the patient has a change in mental status and was not behaving right and agitated, and photophobic and did not make any sense, so pharmacy had to call 911 and the patient was transferred from pharmacy to the emergency department. The patient has an extensive history of drug abuse. MEDICAL/SURGICAL HISTORY: Past medical history: Remarkable for schizophrenia, depression, anxiety, anemia, adjustment disorders, multiple drug abuse. Last hospitalization is not known. MEDICATIONS: 1. Albuterol inhaler 2 puffs 4 times a day. 2. Hydroxyzine as needed [id number]. 3. Prazosin, dosage is not known. 4. Ranitidine, dosage is not known. ALLERGIES: 1. COMPAZINE. 2. GABAPENTIN. 3. MORPHINE. 4. PHENERGAN. 5. VANCOMYCIN. 6. VICODIN. SOCIAL HISTORY: The patient has extensive history of methamphetamine, ecstasy abuse and no social support but the patient has a place to stay. FAMILY HISTORY: Could not be obtained. REVIEW OF SYSTEMS: Could not be obtained because the patient is not able to give any history. PHYSICAL EXAMINATION: Limited because the patient is drowsy and sedated and is not cooperative to physical exam. VITAL SIGNS: Blood pressure 112/89, heart rate is 120, respirations 26, and oxygen saturation 100% on room air, temperature is 97.9 degrees. GENERAL APPEARANCE: Well developed, well nourished, good body build, no acute distress. The patient is sedated. NECK: Supple. No JVD. No palpable mass. SKIN: Warm and dry with good turgor. LUNGS: Clear to auscultation. No rhonchi or wheezing or crackles. HEART: Regular S1, S2. No murmur. No S3 was heard. ABDOMEN: Soft, nontender. Bowel sounds are positive. EXTREMITIES: No edema. Good peripheral pulses. No signs of DVT or cyanosis. MUSCULOSKELETAL: Grossly within normal limits. NEUROLOGIC: The patient is heavily sedated but awakened by verbal stimuli, but goes back to sleep right away and is not able to engage in any communication and cannot answer the questions and was able to move all her extremities. Deep tendon reflexes are bilateral and symmetric. LAB/IMAGING: UA is unremarkable. White blood count was 14.6, hemoglobin was 8.6, hematocrit is 28.4, platelet count is 573. Ferritin 7, iron was 19. iron binding capacity 500, drug screen is positive for amphetamine, methamphetamine also Ecstasy. Glucose is 116, BUN is 18, creatinine 0.9. Sodium is 145, potassium 4.7 , chloride is 106, CO2 is 24, calcium is 9.4. Liver enzymes unremarkable. CPK is normal. Troponin is less than 0.05. ASSESSMENT: The patient will be admitted for: 1. Change in mental status due to methamphetamine, ecstasy abuse, also patient had received some sedative medication in the emergency room. 2. Drug abuse, multiple. 3. Anemia. PLAN: The patient will be admitted for observation with no medication except iron supplement. The patient will be evaluated by [facility] as soon as she awakens and is alert.
--- NOTE | 2016-07-31 23:55 | DISCHARGE SUMMARY ---
ADMIT DATE: 07/31/2016 DISCHARGE DATE: 08/01/2016 DISCHARGE DIAGNOSIS: 1. Change in mental status, resolved BRIEF HISTORY: This is a 41-year-old white female who was heavily sedated during the admission and not able to give any history. The patient was taken to emergency department by the police after pharmacy noticed the patient to have abnormal behavior, agitated and was not making any sense. Her emergency department evaluation showed the patient has ecstasy and methamphetamine in her system. The patient also has history of psychosis and schizophrenia. HOSPITAL COURSE: The patient's stay in the emergency department and then a mental health evaluation came to the interview the patient, but patient was heavily sedated and was not given interview; therefore, the patient was admitted for observation and the patient continued to improve during the hospital course under the observation, gained the consciousness, became alert and was able to give interview and interviewed by mental health professional and the decision was made that patient to be transferred to mental health facility, which was ------- and that is why she is being transferred. DISCHARGE INSTRUCTIONS/MEDICATIONS: Medication at this time is iron sulfate 325 three times a day.
--- NOTE | 2016-08-03 12:56 | ED DISCHARGE INSTRUCTIONS ---
Patient: SILVIA ESPARZA Obdulia General Instructions [facility] VisitID: [id number] [address] [place] [address] 41y, F Registration Date/Time: 07/30/2016 ALTERED MENTAL STATUS. HISTORY OF METHAMPHETAMINE ABUSE. (Electronically signed by Stanislav Sandoval MD 08/03/2016 12:55)
--- NOTE | 2016-08-03 12:56 | ED DISCHARGE INSTRUCTIONS ---
Patient: SILVIA ESPARZA Obdulia General Instructions [facility] VisitID: [id number] [address] [place] [address] 41y, F Registration Date/Time: 07/30/2016 ALTERED MENTAL STATUS. HISTORY OF METHAMPHETAMINE ABUSE. (Electronically signed by Stanislav Sandoval MD 08/03/2016 12:55)
--- NOTE | 2016-08-03 12:56 | ED MED RECONCILIATION SUMMARY ---
Patient: SILVIA ESPARZA Medication Reconciliation Report [facility] VisitID: [id number] [address] [place] [address] 41y, F Registration Date/Time: 07/30/2016 Weight: 63.5 kg Height/Length: 61 in. BMI: 26.5 ALLERGIES: Compazine, Gabapentin, morphine, Phenergan, Vancomycin, Vicodin The patient's Home Medications are listed below: THE FOLLOWING MEDICATIONS NEED TO BE RECONCILED: Albuterol Sulfate Inhalation HydrOXYzine Pamoate Oral Invega Oral Lidocain oral Prazosin HCl Oral Ranitidine Acid Wholesale Representative Oral The source(s) of the original Home Medication information: Not obtained. The following Medications were given to the patient in the Emergency Department: IV NS IV Fluids bolus 0, then 1000 mL/hr, administered: 07/30/2016 10:15:00 AM Ativan [IVP] IVP 1.5 mg, administered: 07/30/2016 9:55:00 AM Ativan [IM] IM 2 mg, administered: 07/30/2016 4:45:00 PM HALDOL [IM] IM 5 mg, administered: 07/30/2016 5:46:00 PM IV NS IV Fluids bolus 0, then 500 mL/hr, administered: 07/31/2016 5:04:00 AM IV NS IV Fluids bolus 0, then 500 mL/hr, administered: 07/31/2016 7:59:00 AM The following Medications were prescribed to the patient: None.
--- NOTE | 2016-08-03 12:56 | ED MAR SUMMARY ---
..... Medication Administration Record Located Within [facility] [address] [place] [address] Patient: SILVIA ESPARZA Visit ID: [id number] 41y, F Weight: 63.5 kg Height/Length: 61 in BMI: 26.5 ALLERGIES: Compazine, Gabapentin, morphine, Phenergan, Vancomycin, Vicodin Given 09:55 07/30/2016 Jennifer Nieves R.N. Medication Administered: ATIVAN [IVP] (LORAZEPAM), Dose: 1.5 mg IVP over 3 minute(s), Site: #1. Medication Ordered: Ativan IV 1.5 mg (NOW). Start 10:15 07/30/2016 Jennifer Nieves R.N., Stop 11:12 07/30/2016 Jennifer Nieves R.N. Medication Administered: IV NS (SALINE), Dose: IV Fluids over 1 hour(s), Rate: 1000 mL/hr, Dispensed: 1000 mL bag, Site: #1 left foot. Medication Ordered: IV NS : initial bolus 1000 mL (1000 mL/hr), then none - for X1 (NOW); Routine. Given 16:45 07/30/2016 Jennifer Nieves R.N. Medication Administered: ATIVAN [IM] (LORAZEPAM), Dose: 2 mg IM. Medication Ordered: Ativan IM 2 mg (HIGH ALERT MEDICATION, NOW). Given 17:46 07/30/2016 Jennifer Nieves R.N. Medication Administered: HALDOL [IM] (HALOPERIDOL LACTATE), Dose: 5 mg IM. Medication Ordered: Haldol IM 5 mg (NOW). Start 05:04 07/31/2016 Lydia Zelaya,, Stop 05:57 07/31/2016 Lydia Zelaya, Medication Administered: IV NS (SALINE), Dose: IV Fluids over 4 hour(s), Rate: 500 mL/hr, Dispensed: 1000 mL bag, Site: #2 left foot. Medication Ordered: IV NS : initial bolus none -, then 500 mL/hr for 4h (NOW) (ie 2 liters of normal saline). Start 07:59 07/31/2016 Sharon Stephenson R.N., Stop 08:58 07/31/2016 Sharon Stephenson RJoaquina. Medication Administered: IV NS (SALINE), Dose: IV Fluids, Rate: 500 mL/hr, Dispensed: 1000 mL bag, Site: #2 left foot. Medication Ordered: IV NS : initial bolus none -, then 500 mL/hr for 4h (NOW) (ie 2 liters of normal saline).
--- NOTE | 2016-08-03 12:56 | ED MAR SUMMARY ---
..... Medication Administration Record [facility] [address] [place] [address] Patient: SILVIA ESPARZA Visit ID: [id number] 41y, F Weight: 63.5 kg Height/Length: 61 in BMI: 26.5 ALLERGIES: Compazine, Gabapentin, morphine, Phenergan, Vancomycin, Vicodin Given 09:55 07/30/2016 Jennifer Nieves R.N. Medication Administered: ATIVAN [IVP] (LORAZEPAM), Dose: 1.5 mg IVP over 3 minute(s), Site: #1. Medication Ordered: Ativan IV 1.5 mg (NOW). Start 10:15 07/30/2016 Jennifer Nieves R.N., Stop 11:12 07/30/2016 Jennifer Nieves R.N. Medication Administered: IV NS (SALINE), Dose: IV Fluids over 1 hour(s), Rate: 1000 mL/hr, Dispensed: 1000 mL bag, Site: #1 left foot. Medication Ordered: IV NS : initial bolus 1000 mL (1000 mL/hr), then none - for X1 (NOW); Routine. Given 16:45 07/30/2016 Jennifer Nieves R.N. Medication Administered: ATIVAN [IM] (LORAZEPAM), Dose: 2 mg IM. Medication Ordered: Ativan IM 2 mg (HIGH ALERT MEDICATION, NOW). Given 17:46 07/30/2016 Jennifer Nieves R.N. Medication Administered: HALDOL [IM] (HALOPERIDOL LACTATE), Dose: 5 mg IM. Medication Ordered: Haldol IM 5 mg (NOW). Start 05:04 07/31/2016 Lydia Zelaya,, Stop 05:57 07/31/2016 Lydia Zelaya, Medication Administered: IV NS (SALINE), Dose: IV Fluids over 4 hour(s), Rate: 500 mL/hr, Dispensed: 1000 mL bag, Site: #2 left foot. Medication Ordered: IV NS : initial bolus none -, then 500 mL/hr for 4h (NOW) (ie 2 liters of normal saline). Start 07:59 07/31/2016 Sharon Stephenson R.N., Stop 08:58 07/31/2016 Sharon Stephenson RJoaquina. Medication Administered: IV NS (SALINE), Dose: IV Fluids, Rate: 500 mL/hr, Dispensed: 1000 mL bag, Site: #2 left foot. Medication Ordered: IV NS : initial bolus none -, then 500 mL/hr for 4h (NOW) (ie 2 liters of normal saline).
--- NOTE | 2016-08-03 12:56 | ED MED RECONCILIATION SUMMARY ---
Patient: SILVIA ESPARZA Medication Reconciliation Report [facility] VisitID: [id number] [address] [place] [address] 41y, F Registration Date/Time: 07/30/2016 Weight: 63.5 kg Height/Length: 61 in. 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 The following Medications were given to the patient in the Emergency Department: IV NS IV Fluids bolus 0, then 1000 mL/hr, administered: 07/30/2016 10:15:00 AM Ativan [IVP] IVP 1.5 mg, administered: 07/30/2016 9:55:00 AM Ativan [IM] IM 2 mg, administered: 07/30/2016 4:45:00 PM HALDOL [IM] IM 5 mg, administered: 07/30/2016 5:46:00 PM IV NS IV Fluids bolus 0, then 500 mL/hr, administered: 07/31/2016 5:04:00 AM IV NS IV Fluids bolus 0, then 500 mL/hr, administered: 07/31/2016 7:59:00 AM The following Medications were prescribed to the patient: None.
== END 2016-08-01 01:06 ==
LOC: ED SRH 08:16 → TRANS SRH 07-31 05:19 → ED SRH 07-31 05:19 → TRANS SRH 08-01 01:06
DX: R41.82 Altered mental status, unspecified (principal); F15.188 Other stimulant abuse with other stimulant-induced disorder; D64.9 Anemia, unspecified; Z78.1 Physical restraint status; F20.9 Schizophrenia, unspecified